=== PATIENT | female | born 1960 | race Caucasian/White ===

== ENCOUNTER → 2016-10-07 | Outpatient (CLI) | payer BC ==
[~2016-10-07] MED LIST: ASCO100025 PO; ASCO100083 PO; ASPI-586 PO; ASPI-892 PO; CALC-80 PO; CEFD300C3 PO; CETI10TA17 PO; CIPR-225 PO; CIPR500T78 PO; CYAN10007 PO; CYCL10TA9 PO; DULO30CA; DULO60CA58 PO; DULO60CA6 PO; ESTR1TAB37 PO; ESTRATEST; ESTRATEST PO; FISH1CAP15 PO; HCTZ12.5T PO; HYDR-87 PO; IBUP-30 PO; LEVO750T9 PO; LISI40TA PO; LSNP20T; METF500T4 PO; METR500T PO; MMT17NA NS; MTF500T PO; MULT-301 PO; MULT1CAP27 PO; NAPR-243 PO; NAPR500T3 PO; ONDA-43 PO; OXYC-197 PO; PRD20T PO; PROVIGIL; RT-ALBUINH IH; SENN-20 PO; SULF1TAB35 PO; TOPI50TA20; TRAM-42 PO; TRM50T PO; VITA-198 PO; VITA100035 PO; VITA1CAP PO; hydrochlorothiazide; premarin
--- NOTE | 2016-10-07 11:51 | Diagnostic Imaging Report ---
INDICATION: Pain in the right posterior chest with congestion x 2 days. COMPARISON STUDY: Chest dated 10/02/2015. FINDINGS: Frontal and lateral views of the chest demonstrate no change. The lungs are clear. The heart, mediastinum, and pulmonary vascularity are normal. Minimal degenerative changes are present in the spine. IMPRESSION: Negative chest. Dictated by: Dictated on workstation # [id number]
== END ==
LOC: RAD 09:16
PROVIDERS: ATTEND Nurse Practitioner
DX: R05 Cough (principal); Z72.0 Tobacco use
CPT/HCPCS: 71020

== ENCOUNTER 2016-10-12 01:58 | Emergency (ER) | payer BC ==
[~2016-10-12] VITALS: Ht 165.1 cm; Wt 83.9 kg
[~2016-10-12 01:58] MED LIST changes: -CEFD300C3 PO; -HYDR-87 PO; -IBUP-30 PO; -OXYC-197 PO; -PRD20T PO; -RT-ALBUINH IH
--- OUTSIDE RECORDS SUMMARY | 2016-10-12 02:07 | XMS REPORT | Continuity of Care Document ---
Author Author [facility] Organization [facility] Address Unknown Phone Unavailable Allergies Active Description Code Type Severity Reaction Onset Reported/Identified Relationship to Patient Clinical Status Yes morphine [id number] Drug Allergy Unknown ITCHING 07/10/2007 Medications Problems Date Dx Coded Attending Type Code Diagnosis Diagnosed By 01/19/2015 Ot V76.12 01/19/2015 Ot 250.00 01/19/2015 Ot 311 01/19/2015 Ot 327.23 01/19/2015 Ot 327.51 01/19/2015 Ot 401.9 01/19/2015 Ot 327.23 01/19/2015 Ot 327.51 01/19/2015 Ot 610.0 01/19/2015 Ot V76.12 01/26/2015 DAPHNIE FORDE, SONA Connolly Ot 574.20 01/26/2015 DAPHNIE FORDE, SONA Connolly Ot 793.89 01/26/2015 DAPHNIE FORDE, SONA Connolly Ot V76.12 01/26/2015 DAPHNIE FORDE, SONA Connolly Ot 574.20 01/26/2015 FRANCINE HARDWICK JOURNALIST Ot 611.72 01/26/2015 FRANCINE HARDWICK Ot 793.80 01/26/2015 Ot 611.72 01/26/2015 Ot V76.12 01/26/2015 Ot 250.00 01/26/2015 Ot 311 01/26/2015 Ot 327.23 01/26/2015 Ot 327.51 01/26/2015 Ot 401.9 01/26/2015 Ot 327.23 01/26/2015 Ot 327.51 01/26/2015 Ot 610.0 01/26/2015 Ot V76.12 02/19/2015 JOHANA ROSALES MD Ot 562.11 DIVERTICULITIS COLON (W/O MENT OF HEMORR 02/19/2015 JOHANA ROSALES MD Ot 787.01 NAUSEA WITH VOMITING 03/01/2015 VANBECELAERE, FRANCINE M JOURNALIST Ot 789.33 03/02/2015 VANBECELAERE, FRANCINE M JOURNALIST Ot 562.11 03/10/2015 VANBECELAERE, FRANCINE M JOURNALIST Ot 789.33 03/21/2015 DERREK FORDE, JAYNA Mota Ot 562.10 DIVERTICULOSIS COLON (W/O MENT OF HEMORR 03/21/2015 DERREK FORDE, JAYNA Mota Ot V76.51 SCREEN MAL NEOP-COLON 03/29/2015 ALECIA CELESTE DO S Ot 573.8 04/17/2015 ALECIA CELESTE DO S Ot 573.8 05/22/2015 DAPHNIE FORDE, SONA Connolly Ot 574.20 05/22/2015 DAPHNIE FORDE, SONA Connolly Ot 793.89 05/22/2015 DAPHNIE FORDE, SONA Connolly Ot V76.12 05/22/2015 DAPHNIE FORDE, SONA Connolly Ot 574.20 05/22/2015 VANBECELAERE, FRANCINE M JOURNALIST Ot 611.72 05/22/2015 VANBECELAERE, FRANCINE M JOURNALIST Ot 793.80 05/22/2015 Ot 611.72 05/22/2015 VANBECELAERE, FRANCINE M JOURNALIST Ot 562.11 05/22/2015 VANBECELAERE, FRANCINE M JOURNALIST Ot 789.33 05/22/2015 LUCA CELESTE DOLINE S Ot 573.8 05/22/2015 DERREK FORDE, JAYNA Mota Ot V72.84 06/12/2015 DAPHNIE FORDE, SONA Connolly Ot 610.0 06/12/2015 DAPHNIE FORDE, SONA Connolly Ot 793.80 06/21/2015 DAPHNIE FORDE, SONA Connolly Ot 610.0 06/21/2015 DAPHNIE FORDE, SONA Connolly Ot 793.80 10/12/2015 Ot V76.12 10/12/2015 Ot 250.00 10/12/2015 Ot 311 10/12/2015 Ot 327.23 10/12/2015 Ot 327.51 10/12/2015 Ot 401.9 10/12/2015 Ot 327.23 10/12/2015 Ot 327.51 10/12/2015 Ot 610.0 10/12/2015 Ot V76.12 10/12/2015 Ot 610.0 10/12/2015 Ot 611.72 10/12/2015 DAPHNIE FORDE, SONA Connolly Ot 574.20 10/12/2015 DAPHNIE FORDE, SONA Connolly Ot 793.89 10/12/2015 DAPHNIE FORDE, SONA Connolly Ot V76.12 10/12/2015 DAPHNIE FORDE, SONA Connolly Ot 574.20 10/12/2015 [facility] M JOURNALIST Ot 611.72 10/12/2015 [facility] JOURNALIST Ot 793.80 10/12/2015 Ot 611.72 10/12/2015 [facility] J[facility] Ot 562.11 10/12/2015 [facility] M JOURNALIST Ot 789.33 10/12/2015 SHABNAM CELESTE DOQUELINE S Ot 573.8 10/12/2015 DERREK FORDE, JAYNA Mota Ot V72.84 10/12/2015 DAPHNIE FORDE, SONA Connolly Ot 610.0 10/12/2015 DAPHNIE FORDE, SONA Connolly Ot 793.80 10/16/2015 BOOKER BARRETT, ALECIA S Ot R05 10/28/2015 BOOKER BARRETT, ALECIA S Ot E11.9 TYPE 2 DIABETES MELLITUS WITHOUT COMPLIC 10/28/2015 BOOKER BARRETT, ALECIA S Ot F17.210 NICOTINE DEPENDENCE, CIGARETTES, UNCOMPL 10/28/2015 BOOKER BARRETT ALECIA S Ot I10 ESSENTIAL (PRIMARY) HYPERTENSION 10/28/2015 WESLEYNDER DO, ALECIA S Ot K57.32 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 10/28/2015 WESLEYNDER DO, ALECIA S Ot K59.00 CONSTIPATION, UNSPECIFIED 10/30/2015 BOOKER BARRETT ALECIA S Ot R05 11/22/2015 BOOKER BARRETT ALECIA S Ot R05 12/10/2015 DAPHNIE FORDE, SONA Connolly Ot 574.20 CHOLELITHIASIS NOS 12/10/2015 DAPHNIE FORDE, SONA Connolly Ot 793.89 OTH (ABN) FINDINGS ON RADIOLOGICAL EXAMI 12/10/2015 SONA ELLER MD Ot V76.12 OTH SCREEN MAMMO-MALIGN NEOPLASM OF NATA 12/10/2015 SONA ELLER MD Ot 574.20 CHOLELITHIASIS NOS 12/10/2015 MULUTRANGSA Erickson JOURNALIST Ot 611.72 LUMP OR MASS IN BREAST 12/10/2015 MULU FRANCINE Dre JOURNALIST Ot 793.80 UNSPEC ABNORMAL MAMMOGRAM 12/10/2015 Ot 611.72 LUMP OR MASS IN BREAST 12/10/2015 FRANCINE HARDWICK JOURNALIST Ot 562.11 DIVERTICULITIS COLON (W/O MENT OF HEMORR 12/10/2015 FRANCINE HARDWICK JOURNALIST Ot 789.33 ABDOMINAL/PELVIC SWELLING,MASS/ LUMP,RT L 12/10/2015 ALECIA CELESTE DO Ot 573.8 LIVER DISORDERS NEC 12/10/2015 DERREK FORDE, JAYNA Mota Ot V72.84 EXAM PRE-OPERATIVE NOS 12/10/2015 SONA ELLER MD Ot 610.0 SOLITARY CYST OF BREAST 12/10/2015 SONA ELLER MD Ot 793.80 UNSPEC ABNORMAL MAMMOGRAM 12/10/2015 ALECIA CELESTE DO S Ot R05 COUGH 12/10/2015 RYAN VENEGAS MD Ot R09.89 OTH SYMPTOMS AND SIGNS INVOLVING THE CIR 12/10/2015 RYAN VENEGAS MD Ot Z53.21 PROC/TRTMT NOT CRD OUT D/T PT LV BEF SEE 12/12/2015 RYAN VENEGAS MD Ot R09.89 OTH SYMPTOMS AND SIGNS INVOLVING THE CIR 12/12/2015 RYAN VENEGAS MD Ot Z53.21 PROC/TRTMT NOT CRD OUT D/T PT LV BEF SEE 12/12/2015 RYAN VENEGAS MD Ot R09.89 OTH SYMPTOMS AND SIGNS INVOLVING THE CIR 12/12/2015 RYAN VENEGAS MD, Ot Z53.21 PROC/TRTMT NOT CRD OUT D/T PT LV BEF SEE 03/22/2016 TESSY RYDER APRN Ot F17.210 NICOTINE DEPENDENCE, CIGARETTES, UNCOMPL 03/22/2016 TESSY RYDER SEWING MACHINE ASSEMBLER Ot K57.32 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 03/22/2016 TESSY RYDER SEWING MACHINE ASSEMBLER Ot R10.32 LEFT LOWER QUADRANT PAIN 03/25/2016 TESSY RYDER SEWING MACHINE ASSEMBLER Ot K57.32 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 03/25/2016 TESSY RYDER APRN Ot R10.32 LEFT LOWER QUADRANT PAIN 03/25/2016 TESSY RYDER SEWING MACHINE ASSEMBLER Ot F17.210 NICOTINE DEPENDENCE, CIGARETTES, UNCOMPL 03/25/2016 TESSY RYDER SEWING MACHINE ASSEMBLER Ot K57.32 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 03/25/2016 TESSY RYDER SEWING MACHINE ASSEMBLER Ot R10.32 LEFT LOWER QUADRANT PAIN 04/04/2016 MALOU NORTH APRN Ot D72.829 ELEVATED WHITE BLOOD CELL COUNT, UNSPECI 04/04/2016 MALOU NORTH APRN Ot K57.92 DVTRCLI OF INTEST, PART UNSP, W/O PERF O 04/05/2016 MALOU NORTH SEWING MACHINE ASSEMBLER Ot E86.0 DEHYDRATION 04/05/2016 MALOU NORTH SEWING MACHINE ASSEMBLER Ot K57.92 DVTRCLI OF INTEST, PART UNSP, W/O PERF O 04/05/2016 MALOU NORTH SEWING MACHINE ASSEMBLER Ot R11.0 NAUSEA 04/19/2016 MALOU NORTH SEWING MACHINE ASSEMBLER Ot E86.0 DEHYDRATION 04/19/2016 MALOU NORTH APRN Ot K57.92 DVTRCLI OF INTEST, PART UNSP, W/O PERF O 04/19/2016 MALOU NORTH SEWING MACHINE ASSEMBLER Ot R11.0 NAUSEA 04/19/2016 MALOU NORTH SEWING MACHINE ASSEMBLER Ot D72.829 ELEVATED WHITE BLOOD CELL COUNT, UNSPECI 04/19/2016 MALOU NORTH SEWING MACHINE ASSEMBLER Ot K57.92 DVTRCLI OF INTEST, PART UNSP, W/O PERF O 04/19/2016 MALOU NORTH APRN Ot K57.92 DVTRCLI OF INTEST, PART UNSP, W/O PERF O 04/30/2016 DAPHNIE FORDE, SONA Connolly Ot 574.20 CHOLELITHIASIS NOS 04/30/2016 DAPHNIE FORDE, SONA Connolly Ot 793.89 OTH (ABN) FINDINGS ON RADIOLOGICAL EXAMI 04/30/2016 DAPHNIE FORDE, SONA Connolly Ot V76.12 OTH SCREEN MAMMO-MALIGN NEOPLASM OF NATA 04/30/2016 DAPHNIE FORDE, SONA Connolly Ot 574.20 CHOLELITHIASIS NOS 04/30/2016 FRANCINE HARDWICK M JOURNALIST Ot 611.72 LUMP OR MASS IN BREAST 04/30/2016 MULU FRANCINE M JOURNALIST Ot 793.80 UNSPEC ABNORMAL MAMMOGRAM 04/30/2016 Ot 611.72 LUMP OR MASS IN BREAST 04/30/2016 TRANG HARDWICKSA M JOURNALIST Ot 562.11 DIVERTICULITIS COLON (W/O MENT OF HEMORR 04/30/2016 FRANCINE HARDWICK M JOURNALIST Ot 789.33 ABDOMINAL/PELVIC SWELLING,MASS/ LUMP,RT L 04/30/2016 ALECIA CELESTE DO Ot 573.8 LIVER DISORDERS NEC 04/30/2016 DERREK FORDE, JAYNA Mota Ot V72.84 EXAM PRE-OPERATIVE NOS 04/30/2016 DAPHNIE FORDE, SONA Connolly Ot 610.0 SOLITARY CYST OF BREAST 04/30/2016 DAPHNIE FORDE, SONA Connolly Ot 793.80 UNSPEC ABNORMAL MAMMOGRAM 04/30/2016 ALECIA CELESTE DO S Ot R05 COUGH 04/30/2016 MALOU NORTH SEWING MACHINE ASSEMBLER Ot E86.0 DEHYDRATION 04/30/2016 MALOU NORTH SEWING MACHINE ASSEMBLER Ot K57.92 DVTRCLI OF INTEST, PART UNSP, W/O PERF O 04/30/2016 MALOU NORTH SEWING MACHINE ASSEMBLER Ot R11.0 NAUSEA 04/30/2016 MALOU NORTH SEWING MACHINE ASSEMBLER Ot D72.829 ELEVATED WHITE BLOOD CELL COUNT, UNSPECI 04/30/2016 MALOU NORTH SEWING MACHINE ASSEMBLER Ot K57.92 DVTRCLI OF INTEST, PART UNSP, W/O PERF O 04/30/2016 MALOU NORTH SEWING MACHINE ASSEMBLER Ot K57.92 DVTRCLI OF INTEST, PART UNSP, W/O PERF O 07/01/2016 Ot 610.0 SOLITARY CYST OF BREAST 07/01/2016 Ot V76.12 OTH SCREEN MAMMO-MALIGN NEOPLASM OF NATA 07/01/2016 Ot 610.0 SOLITARY CYST OF BREAST 07/01/2016 Ot 611.72 LUMP OR MASS IN BREAST 07/01/2016 SONA ELLER MD Ot 574.20 CHOLELITHIASIS NOS 07/01/2016 SONA ELLER MD Ot 793.89 OTH (ABN) FINDINGS ON RADIOLOGICAL EXAMI 07/01/2016 SONA ELLER MD, Ot V76.12 OTH SCREEN MAMMO-MALIGN NEOPLASM OF NATA 07/01/2016 SONA ELLER MD Ot 574.20 CHOLELITHIASIS NOS 07/01/2016 FRANCINE HARDWICK M JOURNALIST Ot 611.72 LUMP OR MASS IN BREAST 07/01/2016 FRANCINE HARDWICK M JOURNALIST Ot 793.80 UNSPEC ABNORMAL MAMMOGRAM 07/01/2016 Ot 611.72 LUMP OR MASS IN BREAST 07/01/2016 FRANCINE HARDWICK M JOURNALIST Ot 562.11 DIVERTICULITIS COLON (W/O MENT OF HEMORR 07/01/2016 FRANCINE HARDWICK M JOURNALIST Ot 789.33 ABDOMINAL/PELVIC SWELLING,MASS/ LUMP,RT L 07/01/2016 ALECIA CELESTE DO S Ot 573.8 LIVER DISORDERS NEC 07/01/2016 DERREK FORDE, JAYNA Mota Ot V72.84 EXAM PRE-OPERATIVE NOS 07/01/2016 SONA ELLER MD Ot 610.0 SOLITARY CYST OF BREAST 07/01/2016 SONA ELLER MD Ot 793.80 UNSPEC ABNORMAL MAMMOGRAM 07/01/2016 ALECIA CELESTE DO S Ot R05 COUGH 07/01/2016 MALOU NORTH SEWING MACHINE ASSEMBLER Ot E86.0 DEHYDRATION 07/01/2016 MALOU NORTH APRN Ot K57.92 DVTRCLI OF INTEST, PART UNSP, W/O PERF O 07/01/2016 MALOU NORTH APRN Ot R11.0 NAUSEA 07/01/2016 MALOU NORTH SEWING MACHINE ASSEMBLER Ot D72.829 ELEVATED WHITE BLOOD CELL COUNT, UNSPECI 07/01/2016 MALOU NORTH Manoj SEWING MACHINE ASSEMBLER Ot K57.92 DVTRCLI OF INTEST, PART UNSP, W/O PERF O 07/01/2016 MALOU NORTH SEWING MACHINE ASSEMBLER Ot K57.92 DVTRCLI OF INTEST, PART UNSP, W/O PERF O 07/02/2016 DAPHNIE FORDE, SONA Connolly Ot Z12.31 ENCNTR SCREEN MAMMOGRAM FOR MALIGNANT NE 07/12/2016 SONA ELLER MD, Ot Z12.31 ENCNTR SCREEN MAMMOGRAM FOR MALIGNANT NE 07/25/2016 EMILY WOODARD DO Ot N39.0 URINARY TRACT INFECTION, SITE NOT SPECIF 08/07/2016 EMILY WOODARD DO Ot N39.0 URINARY TRACT INFECTION, SITE NOT SPECIF 08/10/2016 BRENDON DO, AMY K Ot E11.49 TYPE 2 DIABETES [facility] 08/10/2016 BRENDON DO, AMY K Ot I10 ESSENTIAL (PRIMARY) HYPERTENSION 08/10/2016 BRENDON DO, AMY K Ot T81.4XXA INFECTION FOLLOWING A PROCEDURE, INITIAL 08/10/2016 BRENDON DO, AMY K Ot Z79.82 [facility] (CURRENT) USE OF ASPIRIN 08/10/2016 BRENDON DO, AMY K Ot Z79.84 MACHINE CUTTER (CURRENT) USE OF ORAL HYPOGLYC 08/10/2016 BRENDON DO, AMY K Ot Z79.899 OTHER MACHINE CUTTER (CURRENT) DRUG THERAPY 08/10/2016 BRENDON DO, AMY K Ot Z90.49 ACQUIRED ABSENCE OF OTHER SPECIFIED PART 08/12/2016 BRENDON DO, AMY K Ot E11.49 TYPE 2 DIABETES [facility] 08/12/2016 BRENDON DO, AMY K Ot I10 ESSENTIAL (PRIMARY) HYPERTENSION 08/12/2016 BRENDON DO, AMY K Ot T81.4XXA INFECTION FOLLOWING A PROCEDURE, INITIAL 08/12/2016 BRENDON DO, AMY K Ot Z79.82 MACHINE CUTTER (CURRENT) USE OF ASPIRIN 08/12/2016 BRENDON DO, AMY K Ot Z79.84 MACHINE CUTTER (CURRENT) USE OF ORAL HYPOGLYC 08/12/2016 BRENDON DO, AMY K Ot Z79.899 OTHER [facility] (CURRENT) DRUG THERAPY 08/12/2016 BRENDON BARRETT AMY Hart Ot Z90.49 ACQUIRED ABSENCE OF OTHER SPECIFIED PART 10/08/2016 MALOU NORTH APRN Ot R05 COUGH 10/08/2016 MALOU NORTH APRN Ot Z72.0 TOBACCO USE Procedures Results Test Result Range Complete blood count (CBC) with automated white blood cell (WBC) differential - 03/22/16 13:39 Blood leukocytes automated count (number/volume) 8.8 10*3/ uL 4.3-11.0 Blood erythrocytes automated count (number/volume) 5.42 10*6 /uL 4.35-5.85 Venous blood hemoglobin measurement (mass/volume) 16.7 g/dL 11.5-16.0 Blood hematocrit (volume fraction) 48 % 35-52 Automated erythrocyte mean corpuscular volume 89 [foz_us] 80-99 Automated erythrocyte mean corpuscular hemoglobin (mass per erythrocyte) 31 pg 25-34 Automated erythrocyte mean corpuscular hemoglobin concentration measurement ( mass/volume) 35 g/dL 32-36 Automated erythrocyte distribution width ratio 14.1 % 10.0-14.5 Automated blood platelet count (count/volume) 333 10*3/uL 130-400 Automated blood platelet mean volume measurement 10.0 [foz_ us] 7.4-10.4 Automated blood neutrophils/100 leukocytes 63 % 42-75 Automated blood lymphocytes/100 leukocytes 27 % 12-44 Blood monocytes/100 leukocytes 9 % 0-12 Automated blood eosinophils/100 leukocytes 1 % 0-10 Automated blood basophils/100 leukocytes 0 % 0-10 Blood neutrophils automated count (number/volume) 5.5 10*3 1.8-7.8 Blood lymphocytes automated count (number/volume) 2.4 10*3 1.0-4.0 Blood monocytes automated count (number/volume) 0.8 10*3 0.0-1.0 Automated eosinophil count 0.1 10*3/uL 0.0-0.3 Automated blood basophil count (count/volume) 0.0 10*3/uL 0.0-0.1 Comprehensive metabolic panel - 03/22/16 13:39 Serum or plasma sodium measurement (moles/volume) 139 mmol/ L 135-145 Serum or plasma potassium measurement (moles/volume) 3.9 mmol/L 3.6-5.0 Serum or plasma chloride measurement (moles/volume) 105 mmol /L 98-107 Carbon dioxide 27 mmol/L 21-32 Serum or plasma anion gap determination (moles/volume) 7 mmol/L 5-14 Serum or plasma urea nitrogen measurement (mass/volume) 10 mg/dL 7-18 Serum or plasma creatinine measurement (mass/volume) 0.76 mg /dL 0.60-1.30 Serum or plasma urea nitrogen/creatinine mass ratio 13 NRG Serum or plasma creatinine measurement with calculation of estimated glomerular filtration rate > NRG Serum or plasma glucose measurement (mass/volume) 93 mg/dL 70-105 Serum or plasma calcium measurement (mass/volume) 10.4 mg/ dL 8.5-10.1 Serum or plasma total bilirubin measurement (mass/volume) 0.5 mg/dL 0.1-1.0 Serum or plasma alkaline phosphatase measurement (enzymatic activity/volume) 57 U/L 40-136 Serum or plasma aspartate aminotransferase measurement (enzymatic activity/ volume) 22 U/L 5-34 Serum or plasma alanine aminotransferase measurement (enzymatic activity/volume ) 39 U/L 0-55 Serum or plasma protein measurement (mass/volume) 7.6 g/dL 6.4-8.2 Serum or plasma albumin measurement (mass/volume) 5.0 g/dL 3.2-4.5 Lipase - 03/22/16 13:39 Lipase 82 U/L 8-78 Complete urinalysis with reflex to culture - 03/22/16 13:40 Urine color determination YELLOW NRG Urine clarity determination CLEAR NRG Urine pH measurement by test strip 6 5- 9 Specific gravity of urine by test strip 1.020 1.016-1.022 Urine protein assay by test strip, semi-quantitative 1+ NEGATIVE Urine glucose detection by automated test strip NEGATIVE NEGATIVE Erythrocytes detection in urine sediment by light microscopy NEGATIVE NEGATIVE Urine ketones detection by automated test strip NEGATIVE NEGATIVE Urine nitrite detection by test strip NEGATIVE NEGATIVE Urine total bilirubin detection by test strip NEGATIVE NEGATIVE Urine urobilinogen measurement by automated test strip (mass/volume) NORMAL NORMAL Urine leukocyte esterase detection by dipstick 1+ NEGATIVE Automated urine sediment erythrocyte count by microscopy (number/high power field) RARE NRG Automated urine sediment leukocyte count by microscopy (number/high power field ) RARE NRG Bacteria detection in urine sediment by light microscopy LARGE NRG Squamous epithelial cells detection in urine sediment by light microscopy TNTC NRG Crystals detection in urine sediment by light microscopy NONE NRG Casts detection in urine sediment by light microscopy NONE NRG Mucus detection in urine sediment by light microscopy NEGATIVE NRG Complete urinalysis with reflex to culture NO NRG Automated blood complete blood count (hemogram) panel - 04/02/16 11:36 Blood leukocytes automated count (number/volume) 13.6 10*3/ uL 4.3-11.0 Blood erythrocytes automated count (number/volume) 5.25 10*6 /uL 4.35-5.85 Venous blood hemoglobin measurement (mass/volume) 16.0 g/dL 11.5-16.0 Blood hematocrit (volume fraction) 47 % 35-52 Automated erythrocyte mean corpuscular volume 89 [foz_us] 80-99 Automated erythrocyte mean corpuscular hemoglobin (mass per erythrocyte) 31 pg 25-34 Automated erythrocyte mean corpuscular hemoglobin concentration measurement ( mass/volume) 34 g/dL 32-36 Automated erythrocyte distribution width ratio 14.3 % 10.0-14.5 Automated blood platelet count (count/volume) 307 10*3/uL 130-400 Automated blood platelet mean volume measurement 10.2 [foz_ us] 7.4-10.4 Comprehensive metabolic panel - 04/02/16 11:36 Serum or plasma sodium measurement (moles/volume) 138 mmol/ L 135-145 Serum or plasma potassium measurement (moles/volume) 4.0 mmol/L 3.6-5.0 Serum or plasma chloride measurement (moles/volume) 104 mmol /L 98-107 Carbon dioxide 25 mmol/L 21-32 Serum or plasma anion gap determination (moles/volume) 9 mmol/L 5-14 Serum or plasma urea nitrogen measurement (mass/volume) 8 mg /dL 7-18 Serum or plasma creatinine measurement (mass/volume) 0.72 mg /dL 0.60-1.30 Serum or plasma urea nitrogen/creatinine mass ratio 11 NRG Serum or plasma creatinine measurement with calculation of estimated glomerular filtration rate > NRG Serum or plasma glucose measurement (mass/volume) 94 mg/dL 70-105 Serum or plasma calcium measurement (mass/volume) 10.0 mg/ dL 8.5-10.1 Serum or plasma total bilirubin measurement (mass/volume) 0.8 mg/dL 0.1-1.0 Serum or plasma alkaline phosphatase measurement (enzymatic activity/volume) 46 U/L 40-136 Serum or plasma aspartate aminotransferase measurement (enzymatic activity/ volume) 23 U/L 5-34 Serum or plasma alanine aminotransferase measurement (enzymatic activity/volume ) 46 U/L 0-55 Serum or plasma protein measurement (mass/volume) 7.2 g/dL 6.4-8.2 Serum or plasma albumin measurement (mass/volume) 4.7 g/dL 3.2-4.5 Serum or plasma amylase measurement (enzymatic activity/volume) - 04/02/16 11: 36 Serum or plasma amylase measurement (enzymatic activity/volume) 22 U/L 25-125 Lipase - 04/02/16 11:36 Lipase 35 U/L 8-78 Complete blood count (CBC) with automated white blood cell (WBC) differential - 04/03/16 08:39 Blood leukocytes automated count (number/volume) 9.3 10*3/ uL 4.3-11.0 Blood erythrocytes automated count (number/volume) 5.00 10*6 /uL 4.35-5.85 Venous blood hemoglobin measurement (mass/volume) 15.3 g/dL 11.5-16.0 Blood hematocrit (volume fraction) 45 % 35-52 Automated erythrocyte mean corpuscular volume 90 [foz_us] 80-99 Automated erythrocyte mean corpuscular hemoglobin (mass per erythrocyte) 31 pg 25-34 Automated erythrocyte mean corpuscular hemoglobin concentration measurement ( mass/volume) 34 g/dL 32-36 Automated erythrocyte distribution width ratio 14.1 % 10.0-14.5 Automated blood platelet count (count/volume) 296 10*3/uL 130-400 Automated blood platelet mean volume measurement 10.1 [foz_ us] 7.4-10.4 Automated blood neutrophils/100 leukocytes 70 % 42-75 Automated blood lymphocytes/100 leukocytes 20 % 12-44 Blood monocytes/100 leukocytes 8 % 0-12 Automated blood eosinophils/100 leukocytes 1 % 0-10 Automated blood basophils/100 leukocytes 0 % 0-10 Blood neutrophils automated count (number/volume) 6.5 10*3 1.8-7.8 Blood lymphocytes automated count (number/volume) 1.9 10*3 1.0-4.0 Blood monocytes automated count (number/volume) 0.8 10*3 0.0-1.0 Automated eosinophil count 0.1 10*3/uL 0.0-0.3 Automated blood basophil count (count/volume) 0.0 10*3/uL 0.0-0.1 Complete blood count (CBC) with automated white blood cell (WBC) differential - 04/05/16 08:59 Blood leukocytes automated count (number/volume) 6.4 10*3/ uL 4.3-11.0 Blood erythrocytes automated count (number/volume) 5.09 10*6 /uL 4.35-5.85 Venous blood hemoglobin measurement (mass/volume) 15.5 g/dL 11.5-16.0 Blood hematocrit (volume fraction) 46 % 35-52 Automated erythrocyte mean corpuscular volume 89 [foz_us] 80-99 Automated erythrocyte mean corpuscular hemoglobin (mass per erythrocyte) 31 pg 25-34 Automated erythrocyte mean corpuscular hemoglobin concentration measurement ( mass/volume) 34 g/dL 32-36 Automated erythrocyte distribution width ratio 14.0 % 10.0-14.5 Automated blood platelet count (count/volume) 328 10*3/uL 130-400 Automated blood platelet mean volume measurement 10.1 [foz_ us] 7.4-10.4 Automated blood neutrophils/100 leukocytes 59 % 42-75 Automated blood lymphocytes/100 leukocytes 31 % 12-44 Blood monocytes/100 leukocytes 7 % 0-12 Automated blood eosinophils/100 leukocytes 2 % 0-10 Automated blood basophils/100 leukocytes 1 % 0-10 Blood neutrophils automated count (number/volume) 3.8 10*3 1.8-7.8 Blood lymphocytes automated count (number/volume) 2.0 10*3 1.0-4.0 Blood monocytes automated count (number/volume) 0.5 10*3 0.0-1.0 Automated eosinophil count 0.1 10*3/uL 0.0-0.3 Automated blood basophil count (count/volume) 0.0 10*3/uL 0.0-0.1 Complete urinalysis with reflex to culture - 07/25/16 10:20 Urine color determination YELLOW NRG Urine clarity determination CLEAR NRG Urine pH measurement by test strip 6 5- 9 Specific gravity of urine by test strip 1.015 1.016-1.022 Urine protein assay by test strip, semi-quantitative NEGATIVE NEGATIVE Urine glucose detection by automated test strip NEGATIVE NEGATIVE Erythrocytes detection in urine sediment by light microscopy NEGATIVE NEGATIVE Urine ketones detection by automated test strip NEGATIVE NEGATIVE Urine nitrite detection by test strip NEGATIVE NEGATIVE Urine total bilirubin detection by test strip NEGATIVE NEGATIVE Urine urobilinogen measurement by automated test strip (mass/volume) NORMAL NORMAL Urine leukocyte esterase detection by dipstick NEGATIVE NEGATIVE Automated urine sediment erythrocyte count by microscopy (number/high power field) NONE NRG Automated urine sediment leukocyte count by microscopy (number/high power field ) [HPF] NRG Bacteria detection in urine sediment by light microscopy LARGE NRG Squamous epithelial cells detection in urine sediment by light microscopy 10-25 NRG Crystals detection in urine sediment by light microscopy NONE NRG Casts detection in urine sediment by light microscopy NONE NRG Mucus detection in urine sediment by light microscopy NEGATIVE NRG Complete urinalysis with reflex to culture NO NRG Gram stain microscopy - 08/10/16 18:00 GRAM STAIN RESULT RARE GRAM POSITIVE COCCI NRG Bacteria identification in wound by culture - 08/10/16 18:00 Bacteria identification in wound by culture [id number] NRG QUANTITY OF GROWTH Scant Growth NRG Complete urinalysis with reflex to culture - 08/10/16 18:25 Urine color determination YELLOW NRG Urine clarity determination CLEAR NRG Urine pH measurement by test strip 7 5- 9 Specific gravity of urine by test strip 1.005 1.016-1.022 Urine protein assay by test strip, semi-quantitative NEGATIVE NEGATIVE Urine glucose detection by automated test strip NEGATIVE NEGATIVE Erythrocytes detection in urine sediment by light microscopy NEGATIVE NEGATIVE Urine ketones detection by automated test strip NEGATIVE NEGATIVE Urine nitrite detection by test strip NEGATIVE NEGATIVE Urine total bilirubin detection by test strip NEGATIVE NEGATIVE Urine urobilinogen measurement by automated test strip (mass/volume) NORMAL NORMAL Urine leukocyte esterase detection by dipstick NEGATIVE NEGATIVE Automated urine sediment erythrocyte count by microscopy (number/high power field) NONE NRG Automated urine sediment leukocyte count by microscopy (number/high power field ) NONE NRG Bacteria detection in urine sediment by light microscopy FEW NRG Squamous epithelial cells detection in urine sediment by light microscopy 5-10 NRG Crystals detection in urine sediment by light microscopy NONE NRG Casts detection in urine sediment by light microscopy NONE NRG Mucus detection in urine sediment by light microscopy NEGATIVE NRG Complete urinalysis with reflex to culture NO NRG Gram stain microscopy - 08/10/16 19:25 GRAM STAIN RESULT MODERATE # WBC'[id number], NO BACTERIA OBSERVED NRG Bacteria identification in wound by culture - 08/10/16 19:25 Bacteria identification in wound by culture [id number] NRG FREE TEXT EXTERNAL SENSITIVITY REPORTED AT 1047, 08-15-16 NRG QUANTITY OF GROWTH Moderate Growth NRG Bacterial susceptibility panel - 08/10/16 19:25 Gentamicin susceptibility test by minimum inhibitory concentration S NRG Erythromycin susceptibility test by minimum inhibitory concentration 1 NRG Vancomycin susceptibility test by minimum inhibitory concentration 1 NRG Ampicillin susceptibility test by minimum inhibitory concentration <= NRG Linezolid susceptibility test by minimum inhibitory concentration 2 NRG Encounters ACCT No. Visit Date/Time Discharge Status Pt. Type Provider Facility Loc./Unit Complaint [id number] 08/10/2016 16:28:00 2015 19:45:00 DIS Emergency AMY OLIVAS DO [facility] ER INCISION REDNESS/PAIN [id number] 03/22/2016 13:10:00 2015 15:26:00 DIS Emergency TESSY RYDER APRN [facility] ER STOMACH PAIN/NAUSEA/HEADACHE [id number] 12/10/2015 15:36:00 2015 16:02:00 DIS Emergency RYAN VENEGAS MD [facility] ER CHEST CONGESTION/COUGH [id number] 10/24/2015 11:23:00 2015 10:35:00 DIS Inpatient ALECIA CELESTE DO [facility] 4TH DIVERTICULITIS [id number] 05/22/2015 14:05:00 2014 23:59:59 CLS Outpatient SONA ELLER MD [facility] RAD 6 MONTH FOLLOW UP [id number] 03/21/2015 08:01:00 2014 10:55:00 DIS Outpatient JAYNA ANGLIN MD [facility] SDC SCREENING [id number] 03/16/2015 06:41:00 2014 23:59:59 CLS Outpatient JAYNA ANGLIN MD [facility] PREOP SCREENING [id number] 03/13/2015 08:41:00 2014 23:59:59 CLS Outpatient ALECIA CELESTE DO [facility] RAD LIVER LESION [id number] 02/20/2015 09:43:00 2014 23:59:59 CLS Outpatient FRANCINE HARDWICKP [facility] RAD PELVIC MASS, RLQ PAIN [id number] 02/19/2015 09:20:00 2014 11:42:00 DIS Emergency JOHANA ROSALES MD [facility] ER VOMITING/DIARRHEA [id number] 02/17/2015 11:13:00 2014 23:59:59 CLS Outpatient FRANCINE HARDWICK [facility] RAD ABDOMINAL PAIN [id number] 04/13/2014 13:33:00 2013 23:59:59 CLS Outpatient FRANCINE HARDWICK [facility] RAD PALPABLE RT BREAST MASS [id number] 10/14/2013 11:58:00 2013 23:59:59 CLS Outpatient SONA ELLER MD [facility] RAD BILLIARY COLIC [id number] 10/06/2013 07:57:00 2013 23:59:59 CLS Outpatient SONA ELLER MD [facility] RAD SCREENING,BILIARY COLIC [id number] 10/12/2016 02:01:00 ACT Emergency BRENDON AMY BARRETT Hailey [facility] ER HARD TO BREATH [id number] 10/07/2016 09:16:00 ACT Outpatient MALOU NORTH APRN [facility] RAD COUGH,CONGESTION,TOBACOO ABUSE [id number] 07/25/2016 10:13:00 ACT Outpatient EMILY WOODARD DO [facility] LAB UTI [id number] 07/01/2016 14:39:00 ACT Outpatient SONA ELLER MD [facility] RAD SCREENING [id number] 04/05/2016 08:53:00 ACT Outpatient MALOU NORTH APRN [facility] LAB ACUTE DIVERTICULITIS [id number] 04/03/2016 08:37:00 ACT Outpatient MALOU NORTH APRN [facility] LAB CBCWD [id number] 04/02/2016 11:17:00 ACT Outpatient MALOU NORTH Manoj [employer]ACH[employer]SEM[employer]ER [facility] SDC N/V DEHYDRATION [id number] 10/12/2015 14:41:00 ACT Outpatient ALECIA CELESTE DO [facility] RAD COUGH [id number] 01/19/2015 01:29:00 Document Registration [id number] 10/28/2014 08:13:00 Document Registration [id number] 04/15/2012 08:09:00 Document Registration [id number] 07/19/2011 09:46:00 Document Registration [id number] 01/15/2011 12:25:00 Document Registration [id number] 09/14/2010 20:45:00 Document Registration [id number] 08/08/2010 20:09:00 Document Registration [id number] 07/16/2010 08:07:00 Document Registration
--- NOTE | 2016-10-12 02:20 | ED Respiratory ---
General Chief Complaint: Respiratory Problems Stated Complaint: HARD TO BREATH Source: patient History of Present Illness Time seen by provider: 02:03 Initial Comments C/O COUGH AND CONGESTION AND FEVER SINCE Friday10/05/16 TEMP UP TO 101 HAS HAD SHORTNESS OF BREATH AND RIGHT LOWER CHEST PAIN ALL WEEK. WAS BETTER ON Friday10/09/16 AND WENT TO WORK YESTERDAY. PAIN STARTED AGAIN LAST NIGHT AND HAS BEEN SEVERE SINCE THEN WAS SEEN AT URGENT CARE ON Friday10/07/16 AND AGAIN YESTERDAY 10/11/16. CXR WAS DONE AT THAT TIME --NORMAL, PER PT---AND WAS DX WITH PLEURISY AND GIVEN RX FOR ZITHROMAX AND PREDNISONE ON FRIDAY, AND PREDNISONE AGAIN TODAY ALONG WITH TYLENOL # 3 IS HAVING "INTENSE PAIN" TO RIGHT LOWER / LATERAL CHEST AREA--NOT RELIEVED WITH TYLENOL # 3 OR TRAMADOL ( RX FROM SURGERY DONE IN JULY) PAIN IS WORSE WITH BREATHING OR CERTAIN POSITIONS, IS BETTER IF SHE IS SITTING OR STANDING UPRIGHT AND NOT LEANING AGAINST ANYTHING PCP: DR. CELESTE Allergies and Home Medications Allergies Coded Allergies: morphine (Verified Allergy, Unknown, ITCHING, 07/10/07) Home Medications Unknown Dose PO DAILY (Reported) Albuterol Sulfate 1 Puff Puff #1 2 PUFF IH Q4H Prescribed by: AMY OLIVAS on 10/12/16431 Ascorbic Acid 1,000 Mg Tablet.er 1,000 MG PO DAILY (Reported) Aspirin 81 Mg Tablet.dr 81 MG PO DAILY (Reported) Cefdinir 300 Mg Capsule #20 300 MG PO BID Prescribed by: AMY OLIVAS on 10/12/16431 Duloxetine HCl 60 Mg Capsule.dr 60 MG PO DAILY (Reported) Hydrocodone/Ibuprofen 1 Each Tablet #20 1-2 EACH PO Q4H Prescribed by: AMY OLIVAS on 10/12/16 043 Lisinopril 40 Mg Tablet 40 MG PO DAILY (Reported) Metformin HCl 500 Mg Tablet 500 MG PO DAILY (Reported) Multivitamin 1 Each Tablet 1 EACH PO DAILY (Reported) Vitamin B Complex 1 Each Capsule 1 EACH PO DAILY (Reported) Vitamin E Acetate 1,000 Unit Capsule 1,000 UNIT PO DAILY (Reported) Constitutional: see HPI fever EENTM: nose congestion Respiratory: see HPI cough short of breath Cardiovascular: see HPI Gastrointestinal: no symptoms reported Genitourinary: no symptoms reported Musculoskeletal: see HPI Skin: no symptoms reported Psychiatric/Neurological: No Symptoms Reported Hematologic/Lymphatic: No Symptoms Reported Immunological/Allergic: no symptoms reported Past Eofghxm-Envdov-Vajgcf Hx Patient Social History Alcohol Use: Denies Use Recreational Drug Use: No Smoking Status: Current Everyday Smoker (1 PPD) Type Used: Cigarettes Recent Foreign Travel: No Contact w/Someone Who Travel: No Recent Hopitalizations: Yes (07/03/16--COLON RESECTION FOR DIVERTICULITIS--DR. WOODARD/[facility]) Immunizations Up To Date Tetanus Booster (TDap): Less than 5yrs Seasonal Allergies Seasonal Allergies: Yes Surgeries HX Surgeries: Yes (COLON RESECTION 07/03/16 FOR DIVERTICULITIS- @ [facility] ; HYST/BSO FOR BENIGN DISEASE; FOOT SURGERY) Surgeries: Abdominal, Appendectomy, Bowel Surgery, Section, Hysterectomy, Oophorectomy, Orthopedic Respiratory Hx Respiratory Disorders: Yes Respiratory Disorders: Sleep Apnea Cardiovascular Hx Cardiac Disorders: Yes Cardiac Disorders: Hypertension Neurological Hx Neurological Disorders: No Reproductive System Hx Reproductive Disorders: No Sexually Transmitted Disease: No HIV/AIDS: 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, 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 Genitourinary Hx Genitourinary Disorders: No Gastrointestinal Hx Gastrointestinal Disorders: Yes Gastrointestinal Disorders: Diverticulosis Musculoskeletal Hx Musculoskeletal Disorders: No Endocrine Hx Endocrine Disorders: Yes (PRE-DIABETIC) Endocrine Disorders: Diabetes, Non-Insulin dep HEENT HX ENT Disorders: No Loss of Vision: Denies Hearing Impairment: Denies Cancer Hx Cancer: No Psychosocial Hx Psychiatric Problems: Yes Behavioral Health Disorders: Anxiety, Depression Integumentary HX Skin/Integumentary Disorder: No Blood Transfusions Hx Blood Disorders: No Physical Exam Vital Signs Vital Sign - Last 12Hours 10/12/16 02:13 Temp 97.6 Pulse 93 Resp 18 B/P 156/75 Pulse Ox 94 O2 Delivery Room Air Capillary Refill : General Appearance: WD/WN no apparent distress other (DOES NOT APPEAR ILL. 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5-10.1 MG/DL Carbon Dioxide Level 21 21-32 MMOL/L Chloride Level 107 98-107 MMOL/L Creatinine 0.67 0.60-1.30 MG/DL Eosinophils # (Auto) 0.0 0.0-0.3 10^3/uL Eosinophils % (Manual) 0 % Eosinophils (%) (Auto) 0 0-10 % Estimat Glomerular Filtration Rate > 60 Glucose Level 124 H 70-105 MG/DL Hematocrit 42 35-52 % Hemoglobin 14.4 11.5-16.0 G/DL Hypochromasia SLIGHT Lactic Acid Level 1.2 0.5-2.0 MMOL/L Lymphocytes # (Auto) 2.2 1.0-4.0 X 10^3 Lymphocytes % (Manual) 15 % Lymphocytes (%) (Auto) 13 12-44 % Mean Corpuscular Hemoglobin 29 25-34 PG Mean Corpuscular Hemoglobin Concent 34 32-36 G/DL Mean Corpuscular Volume 85 80-99 FL Mean Platelet Volume 10.0 7.4-10.4 FL Monocytes # (Auto) 1.8 H 0.0-1.0 X 10^3 Monocytes % (Manual) 11 % Monocytes (%) (Auto) 10 0-12 % Neutrophils # (Auto) 13.3 H 1.8-7.8 X 10^3 Neutrophils % (Manual) 72 % Neutrophils (%) (Auto) 77 H 42-75 % Platelet Count 375 130-400 10^3/uL Potassium Level 4.1 3.6-5.0 MMOL/L Reactive Lymphocytes 2 % Red Blood Count 4.97 4.35-5.85 10^6/uL Red Cell Distribution Width 16.4 H 10.0-14.5 % Sodium Level 141 135-145 MMOL/L Total Bilirubin 0.2 0.1-1.0 MG/DL Total Protein 7.1 6.4-8.2 G/DL Toxic Granulation 1+ White Blood Count 17.4 H 4.3-11.0 10^3/uL Micro Results Microbiology 10/12/16 Influenza Types A,B Antigen (JENNIFER) - Final, Complete My Orders Orders-AMY OLIVAS DO Saline Lock/Iv-Start (10/12/16 02:12) Ct Angio Chest W (10/12/16 02:12) Cbc With Automated Diff (10/12/16 02:12) Comprehensive Metabolic Panel (10/12/16 02:12) Lactic Acid Analyzer (10/12/16 02:12) Blood Culture (10/12/16 02:12) Influenza A And B Antigens (10/12/16 02:12) Manual Differential (10/12/16 02:20) Iohexol Injection (Omnipaque 350 Mg/Ml 1 (10/12/16 03:30) Ns (Ivpb) (Sodium Chloride 0.9% Ivpb Bag (10/12/16 03:30) Ceftriaxone Injection (Rocephin Injectio (10/12/16 04:30) Ketorolac Injection (Toradol Injection) (10/12/16 04:30) Hydrocodone/Apap 7.5/325 Tab (Lortab 7. (10/12/16 04:30) Medications Given in ED Current Medications Medications Dose Ordered Sig/Paul Route Start Time Stop Time Status Last Admin Dose Admin Acetaminophen/ Hydrocodone Bitart 1 ea ONCE ONCE PO 10/12/16 04:30 10/12/16 04:31 DC 10/12/16 04:37 1 EA Ceftriaxone Sodium/Sodium Chloride 50 ml @ 100 mls/hr ONCE ONCE IV 10/12/16 04:30 10/12/16 04:46 DC 10/12/16 04:37 100 MLS/HR Iohexol 150 ml ONCE ONCE IV 10/12/16 03:30 10/12/16 03:32 DC 10/12/16 03:24 125 ML Sodium Chloride 100 ml 100 ml ONCE ONCE IV 10/12/16 03:30 10/12/16 03:32 DC 10/12/16 03:24 80 ML Vital Signs/I&O Vital Sign - Last 12Hours 10/12/16 10/12/16 10/12/16 10/12/16 02:13 04:37 04:37 04:40 Temp 97.6 97.6 97.6 98.4 Pulse 93 73 Resp 18 16 B/P 156/75 Pulse Ox 94 94 O2 Delivery Room Air Progress Note : Progress Note NO COUGH NOTED DURING ER STAY, AND NO C/O DYSPNEA DURING ER STAY Diagnostic Imaging Comments CT CHEST ANGIOGRAM--NO PE OR ACUTE PROCESS, PER [facility] VIA FAX @ [id number] Reviewed: Reviewed by Me Departure Impression Impression: Primary Impression: Bronchitis Additional Impression: PLEURITIC RIGHT CHEST PAIN Disposition: HOME, SELF-CARE Condition: Stable (ERASED) Departure-Patient Inst. Referrals: ALECIA CELESTE DO (PCP/Family) Primary Care Physician Patient Instructions: Pleuritic Chest Pain (DC), Acute Bronchitis, Child (DC) Add. Discharge Instructions: CONTINUE PREDNISONE PRESCRIBED FINISH ZITHROMAX FOLLOW UP WITH DR. CELESTE NEXT WEEK FOR FURTHER CARE All discharge instructions reviewed with patient and/or family. Voiced understanding. Scripts Albuterol Sulfate (Ventolin Hfa Common Canister)1 Puff Puff2 Puff IH Q4H BREATHING #1 GM Prov:AMY OLIVAS DO 10/12/16 Hydrocodone/Ibuprofen (Hydrocodone-Ibuprofen 7.5-200)1 Each Tablet1-2 Each PO Q4H Pain #20 TAB Prov:AMY OLIVAS DO 10/12/16 Cefdinir 300 Mg [id number] Mg PO BID FOR INFECTION #20 CAP Prov:AMY OLIVAS DO 10/12/16 AMY OLIVAS DO Oct 12, 2016 02:20
[2016-10-12 02:30] LABS: BASOPHILS % (AUTO) 0 % (0-10); EOSINOPHILS % (AUTO) 0 % (0-10); LYMPHOCYTES # (AUTO) 2.2 X 10^3 (1.0-4.0); LYMPHOCYTES % (AUTO) 13 % (12-44); MEAN CORPUSCULAR HEMOGLOBIN 29 PG (25-34); MEAN CORPUSCULAR HGB CONC 34 G/DL (32-36); MEAN CORPUSCULAR VOLUME 85 FL (80-99); MONOCYTES # (AUTO) 1.8 X 10^3 (0.0-1.0); MONOCYTES % (AUTO) 10 % (0-12); NEUTROPHILS # (AUTO) 13.3 X 10^3 (1.8-7.8); NEUTROPHILS % (AUTO) 77 % (42-75); PLATELET COUNT 375 10^3/uL (130-400); RED BLOOD COUNT 4.97 10^6/uL (4.35-5.85); RED CELL DISTRIBUTION WIDTH 16.4 % (10.0-14.5); WHITE BLOOD COUNT 17.4 10^3/uL (4.3-11.0)
[2016-10-12 02:48] LABS: ALANINE AMINOTRANSFERASE 47 U/L (0-55); ALBUMIN 4.6 G/DL (3.2-4.5); ANION GAP 13 MMOL/L (5-14); ASPARTATE AMINO TRANSFERASE 12 U/L (5-34); BAND NEUTROPHILS 0 %; BASOPHILS % (MANUAL) 0 %; BILIRUBIN,TOTAL 0.2 MG/DL (0.1-1.0); BLOOD UREA NITROGEN 9 MG/DL (7-18); BUN/CREATININE RATIO 13; CALCIUM 9.8 MG/DL (8.5-10.1); CARBON DIOXIDE 21 MMOL/L (21-32); CHLORIDE 107 MMOL/L (98-107); CREATININE SERUM 0.67 MG/DL (0.60-1.30); EOSINOPHILS % (MANUAL) 0 %; GFR ESTIMATED > 60; GLUCOSE 124 MG/DL (70-105); LYMPHOCYTES % (MANUAL) 15 %; NEUTROPHILS % (MANUAL) 72 %; POTASSIUM 4.1 MMOL/L (3.6-5.0); SODIUM 141 MMOL/L (135-145); TOTAL PROTEIN 7.1 G/DL (6.4-8.2)
[2016-10-12 02:49] LABS: ANISOCYTOSIS SLIGHT; HYPOCHROMASIA SLIGHT; REACTIVE LYMPHOCYTES 2 %
[2016-10-12] MEDS ORDERED: IOHEXOL 350 MG/ML 150 ML (OMNIPAQUE 350) VIAL IV ONE (03:30)
[2016-10-12] MEDS ORDERED: NS 100 ML (IVPB) BAG IV ONE (03:30)
[2016-10-12] MEDS ORDERED: cefTRIAXone INJECTION 1,000 MG in NS (IVPB) 50 ML IV ONE (04:30)
[2016-10-12] MEDS ORDERED: KETOROLAC 30 MG/ML VIAL IVP STA (04:30)
[2016-10-12] MEDS ORDERED: HYDROcodone/APAP 7.5 MG/325 MG (LORTAB, LORCET PLUS) TABLET PO ONE (04:30)
[2016-10-12] MEDS ORDERED: CEFD300C3 PO (04:32)
[2016-10-12] MEDS ORDERED: HYDR-87 PO (04:32)
[2016-10-12] MEDS ORDERED: RT-ALBUINH IH (04:32)
[2016-10-12 04:40] VITALS: BP 129/67
--- NOTE | 2016-10-12 06:40 | Diagnostic Imaging Report ---
PROCEDURE: CT angiography of the chest with contrast. TECHNIQUE: Multiple contiguous axial images were obtained through the chest after uneventful bolus administration of intravenous contrast. Reconstructed CTA MIP acquisitions were also performed. INDICATION: Cough and congestion x7 days. FINDINGS: There is infiltrate in the right lung base with some atelectasis as well. There are air bronchograms. Minimal atelectasis noted in the left lung base. No pleural effusions or pneumothorax. There is good enhancement of the aorta and pulmonary arteries following IV contrast. No evidence of aortic dissection or aneurysm. Pulmonary arteries are well opacified with no filling defect to suggest pulmonary emboli. No pleural effusions or pericardial effusion. No pneumothorax. IMPRESSION: 1. No evidence of pulmonary emboli. 2. Finding consistent with consolidated pneumonia right lower lobe with some associated atelectasis as well. These findings are in agreement with the preliminary report. Dictated by: Dictated on workstation # [id number]
[2016-10-13] MEDS ORDERED: OXYC-197 PO ×2 (06:21→06:29)
== END 2016-10-12 04:46 | disposition home or self-care (01) ==
LOC: EDUNIT# 01:58 → ER 02:01
DX: J40 Bronchitis, not specified as acute or chronic (principal); R07.81 Pleurodynia; I10 Essential (primary) hypertension; E11.9 Type 2 diabetes mellitus without complications; F17.210 Nicotine dependence, cigarettes, uncomplicated; Z79.82 Long term (current) use of aspirin; Z79.84 Long term (current) use of oral hypoglycemic drugs; Z79.899 Other long term (current) drug therapy
CPT/HCPCS: 36415; 71275; 80053; 83605; 85007; 85027; 87040; 87804; 96374; 96375

== ENCOUNTER 2016-10-13 04:26 | Emergency (ER) | payer BC ==
[~2016-10-13] VITALS: Ht 165.1 cm; Wt 83.9 kg
[~2016-10-13 04:26] MED LIST changes: +CEFD300C3 PO; +HYDR-87 PO; +RT-ALBUINH IH
--- OUTSIDE RECORDS SUMMARY | 2016-10-13 04:33 | XMS REPORT | Continuity of Care Document ---
Author Author [facility] Organization [facility] Address Unknown Phone Unavailable Allergies Active Description Code Type Severity Reaction Onset Reported/Identified Relationship to Patient Clinical Status Yes morphine [id number] Drug Allergy Unknown ITCHING 07/10/2007 Medications Problems [...] SONA Connolly Ot 574.20 01/26/2015 FRANCINE HARDWICK LOFTSMAN Ot 611.72 01/26/2015 FRANCINE HARDWICK Ot 793.80 [...] NAUSEA WITH VOMITING 03/01/2015 VANBECELAERE, FRANCINE M LOFTSMAN Ot 789.33 03/02/2015 VANBECELAERE, FRANCINE M LOFTSMAN Ot 562.11 03/10/2015 VANBECELAERE, FRANCINE M LOFTSMAN Ot 789.33 03/21/2015 DERREK FORDE, JAYNA Mota [...] Connolly Ot 574.20 05/22/2015 VANBECELAERE, FRANCINE M LOFTSMAN Ot 611.72 05/22/2015 VANBECELAERE, FRANCIEN M LOFTSMAN Ot 793.80 05/22/2015 Ot 611.72 05/22/2015 VANBECELAERE, FRANCINE M LOFTSMAN Ot 562.11 05/22/2015 VANBECELAERE, FRANCINE M LOFTSMAN Ot 789.33 05/22/2015 LUCA CELESTE DOLINE S Ot 573.8 05/22/2015 DERREK FORDE, JAYNA Mota Ot V72.84 06/12/2015 DAPHNIE FORDE, SONA Connolly Ot 610.0 06/12/2015 DAPHNIE FORDE, OSNA Connolly Ot 793.80 06/21/2015 DAPHNIE FORDE, SONA [...] DAPHNIE FORDE, SONA Connolly Ot 574.20 10/12/2015 [facility] FRANCINE M LOFTSMAN Ot 611.72 10/12/2015 [facility] FRANCINE M LOFTSMAN Ot 793.80 10/12/2015 Ot 611.72 10/12/2015 [facility] LOFTSMAN Ot 562.11 10/12/2015 [facility] FRANCINE M LOFTSMAN Ot 789.33 10/12/2015 SHABNAM CELESTE DOQUELINE S [...] Ot 574.20 CHOLELITHIASIS NOS 12/10/2015 MULUTRANGSA Erickson LOFTSMAN Ot 611.72 LUMP OR MASS IN BREAST 12/10/2015 MULU FRANCINE Dre LOFTSMAN Ot 793.80 UNSPEC ABNORMAL MAMMOGRAM 12/10/2015 Ot 611.72 LUMP OR MASS IN BREAST 12/10/2015 FRANCINE HARDWICK LOFTSMAN Ot 562.11 DIVERTICULITIS COLON (W/O MENT OF HEMORR 12/10/2015 FRANCINE HARDWICK LOFTSMAN Ot 789.33 ABDOMINAL/PELVIC SWELLING,MASS/ LUMP,RT L 12/10/2015 [...] NICOTINE DEPENDENCE, CIGARETTES, UNCOMPL 03/22/2016 TESSY RYDER GIS WEB DEVELOPER Ot K57.32 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 03/22/2016 TESSY RYDER GIS WEB DEVELOPER Ot R10.32 LEFT LOWER QUADRANT PAIN 03/25/2016 TESSY RYDER GIS WEB DEVELOPER Ot K57.32 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 03/25/2016 TESSY RYDER APRN Ot R10.32 LEFT LOWER QUADRANT PAIN 03/25/2016 TESSY RYDER GIS WEB DEVELOPER Ot F17.210 NICOTINE DEPENDENCE, CIGARETTES, UNCOMPL 03/25/2016 TESSY RYDER GIS WEB DEVELOPER Ot K57.32 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 03/25/2016 TESSY RYDER GIS WEB DEVELOPER Ot R10.32 LEFT LOWER QUADRANT PAIN 04/04/2016 MALOU NORTH APRN Ot D72.829 ELEVATED WHITE BLOOD CELL COUNT, UNSPECI 04/04/2016 MALOU NORTH APRN Ot K57.92 DVTRCLI OF INTEST, PART UNSP, W/O PERF O 04/05/2016 MALOU NORTH GIS WEB DEVELOPER Ot E86.0 DEHYDRATION 04/05/2016 MALOU NORTH GIS WEB DEVELOPER Ot K57.92 DVTRCLI OF INTEST, PART UNSP, W/O PERF O 04/05/2016 MALOU NORTH GIS WEB DEVELOPER Ot R11.0 NAUSEA 04/19/2016 MALOU NORTH GIS WEB DEVELOPER Ot E86.0 DEHYDRATION 04/19/2016 MALOU NORTH APRN Ot K57.92 DVTRCLI OF INTEST, PART UNSP, W/O PERF O 04/19/2016 MALOU NORTH GIS WEB DEVELOPER Ot R11.0 NAUSEA 04/19/2016 MALOU NORTH GIS WEB DEVELOPER Ot D72.829 ELEVATED WHITE BLOOD CELL COUNT, UNSPECI 04/19/2016 MALOU NORTH GIS WEB DEVELOPER Ot K57.92 DVTRCLI OF INTEST, PART UNSP, [...] 574.20 CHOLELITHIASIS NOS 04/30/2016 FRANCINE HARDWICK M LOFTSMAN Ot 611.72 LUMP OR MASS IN BREAST 04/30/2016 MULU FRANCINE M LOFTSMAN Ot 793.80 UNSPEC ABNORMAL MAMMOGRAM 04/30/2016 Ot 611.72 LUMP OR MASS IN BREAST 04/30/2016 TRANG HARDWICKSA M LOFTSMAN Ot 562.11 DIVERTICULITIS COLON (W/O MENT OF HEMORR 04/30/2016 FRANCINE HARDWICK M LOFTSMAN Ot 789.33 ABDOMINAL/PELVIC SWELLING,MASS/ LUMP,RT L 04/30/2016 ALECIA CELESTE DO Ot 573.8 LIVER DISORDERS NEC 04/30/2016 DERREK FORDE, JAYNA Mota Ot V72.84 EXAM PRE-OPERATIVE NOS 04/30/2016 DAPHNIE FORDE, SONA Connolly Ot 610.0 SOLITARY CYST OF BREAST 04/30/2016 DAPHNIE FORDE, SONA Connolly Ot 793.80 UNSPEC ABNORMAL MAMMOGRAM 04/30/2016 ALECIA CELESTE DO S Ot R05 COUGH 04/30/2016 MALOU NORTH GIS WEB DEVELOPER Ot E86.0 DEHYDRATION 04/30/2016 MALOU NORTH GIS WEB DEVELOPER Ot K57.92 DVTRCLI OF INTEST, PART UNSP, W/O PERF O 04/30/2016 MALOU NORTH GIS WEB DEVELOPER Ot R11.0 NAUSEA 04/30/2016 MALOU NORTH GIS WEB DEVELOPER Ot D72.829 ELEVATED WHITE BLOOD CELL COUNT, UNSPECI 04/30/2016 MALOU NORTH GIS WEB DEVELOPER Ot K57.92 DVTRCLI OF INTEST, PART UNSP, W/O PERF O 04/30/2016 MALOU NORTH GIS WEB DEVELOPER Ot K57.92 DVTRCLI OF INTEST, PART UNSP, [...] 574.20 CHOLELITHIASIS NOS 07/01/2016 FRANCINE HARDWICK M LOFTSMAN Ot 611.72 LUMP OR MASS IN BREAST 07/01/2016 FRANCINE HARDWICK M LOFTSMAN Ot 793.80 UNSPEC ABNORMAL MAMMOGRAM 07/01/2016 Ot 611.72 LUMP OR MASS IN BREAST 07/01/2016 FRANCINE HARDWICK M LOFTSMAN Ot 562.11 DIVERTICULITIS COLON (W/O MENT OF HEMORR 07/01/2016 FRANCINE HARDWICK M LOFTSMAN Ot 789.33 ABDOMINAL/PELVIC SWELLING,MASS/ LUMP,RT L 07/01/2016 ALECIA CELESTE DO S Ot 573.8 LIVER DISORDERS NEC 07/01/2016 DERREK FORDE, JAYNA Mota Ot V72.84 EXAM PRE-OPERATIVE NOS 07/01/2016 SONA ELLER MD Ot 610.0 SOLITARY CYST OF BREAST 07/01/2016 SONA ELLER MD Ot 793.80 UNSPEC ABNORMAL MAMMOGRAM 07/01/2016 ALECIA CELESTE DO S Ot R05 COUGH 07/01/2016 MALOU NORTH GIS WEB DEVELOPER Ot E86.0 DEHYDRATION 07/01/2016 MALOU NORTH APRN Ot K57.92 DVTRCLI OF INTEST, PART UNSP, W/O PERF O 07/01/2016 MALOU NORTH APRN Ot R11.0 NAUSEA 07/01/2016 MALOU NORTH GIS WEB DEVELOPER Ot D72.829 ELEVATED WHITE BLOOD CELL COUNT, UNSPECI 07/01/2016 MALOU NORTH Manoj GIS WEB DEVELOPER Ot K57.92 DVTRCLI OF INTEST, PART UNSP, W/O PERF O 07/01/2016 MALOU NORTH GIS WEB DEVELOPER Ot K57.92 DVTRCLI OF INTEST, PART UNSP, [...] K Ot E11.49 TYPE 2 DIABETES [facility] 08/10/2016 BRENDON DO, AMY K Ot I10 ESSENTIAL (PRIMARY) HYPERTENSION 08/10/2016 BRENDON DO, AMY K Ot T81.4XXA INFECTION FOLLOWING A PROCEDURE, INITIAL 08/10/2016 BRENDON DO, AMY K Ot Z79.82 CARE HOME (CURRENT) USE OF ASPIRIN 08/10/2016 BRENDON DO, AMY K Ot Z79.84 INTEGRITY CONSULTANT (CURRENT) USE OF ORAL HYPOGLYC 08/10/2016 BRENDON DO, AMY K Ot Z79.899 OTHER INTEGRITY CONSULTANT (CURRENT) DRUG THERAPY 08/10/2016 BRENDON DO, AMY K Ot Z90.49 ACQUIRED ABSENCE OF OTHER SPECIFIED PART 08/12/2016 BRENDON DO, AMY K Ot E11.49 TYPE 2 DIABETES [facility] 08/12/2016 BRENDON DO, AMY K Ot I10 ESSENTIAL (PRIMARY) HYPERTENSION 08/12/2016 BRENDON DO, AMY K Ot T81.4XXA INFECTION FOLLOWING A PROCEDURE, INITIAL 08/12/2016 BRENDON DO, AMY K Ot Z79.82 INTEGRITY CONSULTANT (CURRENT) USE OF ASPIRIN 08/12/2016 BRENDON DO, AMY K Ot Z79.84 INTEGRITY CONSULTANT (CURRENT) USE OF ORAL HYPOGLYC 08/12/2016 BRENDON DO, AMY K Ot Z79.899 OTHER CARE HOME (CURRENT) DRUG THERAPY 08/12/2016 BRENDON BARRETT AMY [...] 18:00 Bacteria identification in wound by culture [id number] NRG QUANTITY OF GROWTH Scant Growth NRG [...] 19:25 Bacteria identification in wound by culture [id number] [facility] FREE TEXT EXTERNAL SENSITIVITY REPORTED AT 1047, 16 NRG QUANTITY OF GROWTH Moderate Growth [facility] Bacterial susceptibility panel - 08/10/16 19:25 Gentamicin susceptibility test by minimum inhibitory concentration S NRG Erythromycin susceptibility test by minimum inhibitory concentration 1 NRG Vancomycin susceptibility test by minimum inhibitory concentration 1 NRG Ampicillin susceptibility test by minimum inhibitory concentration <= NRG Linezolid susceptibility test by minimum inhibitory concentration 2 NRG Complete blood count (CBC) with automated white blood cell (WBC) differential - 10/12/16 02:20 Blood leukocytes automated count (number/volume) 17.4 10*3/ uL 4.3-11.0 Blood erythrocytes automated count (number/volume) 4.97 10*6 /uL 4.35-5.85 Venous blood hemoglobin measurement (mass/volume) 14.4 g/dL 11.5-16.0 Blood hematocrit (volume fraction) 42 % 35-52 Automated erythrocyte mean corpuscular volume 85 [foz_us] 80-99 Automated erythrocyte mean corpuscular hemoglobin (mass per erythrocyte) 29 pg 25-34 Automated erythrocyte mean corpuscular hemoglobin concentration measurement ( mass/volume) 34 g/dL 32-36 Automated erythrocyte distribution width ratio 16.4 % 10.0-14.5 Automated blood platelet count (count/volume) 375 10*3/uL 130-400 Automated blood platelet mean volume measurement 10.0 [foz_ us] 7.4-10.4 Automated blood neutrophils/100 leukocytes 77 % 42-75 Automated blood lymphocytes/100 leukocytes 13 % 12-44 Blood monocytes/100 leukocytes 10 % 0-12 Automated blood eosinophils/100 leukocytes 0 % 0-10 Automated blood basophils/100 leukocytes 0 % 0-10 Blood neutrophils automated count (number/volume) 13.3 10*3 1.8-7.8 Blood lymphocytes automated count (number/volume) 2.2 10*3 1.0-4.0 Blood monocytes automated count (number/volume) 1.8 10*3 0.0-1.0 Automated eosinophil count 0.0 10*3/uL 0.0-0.3 Automated blood basophil count (count/volume) 0.0 10*3/uL 0.0-0.1 Influenza virus A and B antigen detection - 02/18/17 02:20 FLU RESULT NEGATIVE FOR INFLUENZA A AND B ANTIGENS BY IA NRG Blood manual differential performed detection - 10/12/16 02:20 Blood monocytes/100 leukocytes 11 % NRG Manual blood segmented neutrophils/100 leukocytes 72 % NRG Blood band neutrophils/100 leukocytes 0 % NRG Manual blood lymphocytes/100 leukocytes 15 % NRG Manual eosinophils/100 leukocytes in nose 0 % NRG Manual blood basophils/100 leukocytes 0 % NRG Blood lymphocytes variant/100 leukocytes 2 % NRG Blood anisocytosis detection by light microscopy SLIGHT NRG Blood toxic granules detection by light microscopy 1+ NRG Blood hypochromia detection by light microscopy SLIGHT NRG Blood lactic acid measurement (moles/volume) - 10/12/16 02:20 Blood lactic acid measurement (moles/volume) 1.2 mmol/L 0.5-2.0 Comprehensive metabolic panel - 10/12/16 02:20 Serum or plasma sodium measurement (moles/volume) 141 mmol/ L 135-145 Serum or plasma potassium measurement (moles/volume) 4.1 mmol/L 3.6-5.0 Serum or plasma chloride measurement (moles/volume) 107 mmol /L 98-107 Carbon dioxide 21 mmol/L 21-32 Serum or plasma anion gap determination (moles/volume) 13 mmol/L 5-14 Serum or plasma urea nitrogen measurement (mass/volume) 9 mg /dL 7-18 Serum or plasma creatinine measurement (mass/volume) 0.67 mg /dL 0.60-1.30 Serum or plasma urea nitrogen/creatinine mass ratio 13 NRG Serum or plasma creatinine measurement with calculation of estimated glomerular filtration rate > NRG Serum or plasma glucose measurement (mass/volume) 124 mg/dL 70-105 Serum or plasma calcium measurement (mass/volume) 9.8 mg/dL 8.5-10.1 Serum or plasma total bilirubin measurement (mass/volume) 0.2 mg/dL 0.1-1.0 Serum or plasma alkaline phosphatase measurement (enzymatic activity/volume) 66 U/L 40-136 Serum or plasma aspartate aminotransferase measurement (enzymatic activity/ volume) 12 U/L 5-34 Serum or plasma alanine aminotransferase measurement (enzymatic activity/volume ) 47 U/L 0-55 Serum or plasma protein measurement (mass/volume) 7.1 g/dL 6.4-8.2 Serum or plasma albumin measurement (mass/volume) 4.6 g/dL 3.2-4.5 Encounters ACCT No. Visit Date/Time Discharge Status Pt. Type Provider Facility Loc./Unit Complaint [id number] 10/12/2016 02:01:00 2016 04:46:00 DIS Emergency AMY OLIVAS DO [facility] ER HARD TO BREATH [id number] 08/10/2016 16:28:00 2015 19:45:00 DIS Emergency BRENDON AMY BARRETT [facility] ER INCISION REDNESS/PAIN [id number] 03/22/2016 13:10:00 2015 15:26:00 DIS Emergency TESSY RYDER APRN [facility] ER STOMACH PAIN/NAUSEA/HEADACHE [id number] 12/10/2015 15:36:00 2015 16:02:00 DIS Emergency RYAN VENEGAS MD [facility] ER CHEST CONGESTION/COUGH [id number] 10/24/2015 11:23:00 2015 10:35:00 DIS Inpatient ALECIA CELESTE DO [facility] 4TH DIVERTICULITIS [id number] 05/22/2015 14:05:00 2014 23:59:59 CLS Outpatient SONA ELLER MD [facility] RAD 6 MONTH FOLLOW UP [id number] 03/21/2015 08:01:00 2014 10:55:00 DIS Outpatient JAYNA ANGLIN MD [facility] SDC SCREENING [id number] 03/16/2015 06:41:00 2014 23:59:59 CLS Outpatient JAYNA ANGLIN MD [facility] PREOP SCREENING [id number] 03/13/2015 08:41:00 2014 23:59:59 CLS Outpatient ALECIA CELESTE DO [facility] RAD LIVER LESION [id number] 02/20/2015 09:43:00 2014 23:59:59 CLS Outpatient FRANCINE HARDWICK [facility] RAD PELVIC MASS, RLQ PAIN [id number] 02/19/2015 09:20:00 2014 11:42:00 DIS Emergency BOBBY FORDE, JOHANA Hart [facility] ER VOMITING/DIARRHEA [id number] 02/17/2015 11:13:00 2014 23:59:59 CLS Outpatient FRANCINE HARDWICK LOFTSMAN [facility] RAD ABDOMINAL PAIN [id number] 04/13/2014 13:33:00 2013 23:59:59 CLS Outpatient FRANCINE HARDWICK LOFTSMAN [facility] RAD PALPABLE RT BREAST MASS [id number] 10/14/2013 11:58:00 2013 23:59:59 CLS Outpatient SONA ELLER MD [facility] RAD BILLIARY COLIC [id number] 10/06/2013 07:57:00 2013 23:59:59 CLS Outpatient SONA ELLER MD [facility] RAD SCREENING,BILIARY COLIC [id number] 10/07/2016 09:16:00 ACT Outpatient MALOU NORTH GIS WEB DEVELOPER [facility] RAD COUGH,CONGESTION,TOBACOO ABUSE [id number] 07/25/2016 10:13:00 ACT Outpatient EMILY WOODARD DO [facility] LAB UTI [id number] 07/01/2016 14:39:00 ACT Outpatient SONA ELLER MD [facility] RAD SCREENING [id number] 04/05/2016 08:53:00 ACT Outpatient MALOU NORTH GIS WEB DEVELOPER [facility] LAB ACUTE DIVERTICULITIS [id number] 04/03/2016 08:37:00 ACT Outpatient MALOU NORTH GIS WEB DEVELOPER [facility] LAB CBCWD [id number] 04/02/2016 11:17:00 ACT Outpatient MALOU NORTH GIS WEB DEVELOPER [facility] SDC N/V DEHYDRATION [id number] 10/12/2015 14:41:00 ACT Outpatient ALECIA CELESTE DO [facility] RAD COUGH [id number] 01/19/2015 01:29:00 Document Registration [id number] 10/28/2014 08:13:00 Document Registration [id number] 04/15/2012 08:09:00 Document Registration [id number] 07/19/2011 09:46:00 Document Registration [id number] 01/15/2011 12:25:00 Document Registration [id number] 09/14/2010 20:45:00 Document Registration [id number] 08/08/2010 20:09:00 Document Registration [id number] 07/16/2010 08:07:00 Document Registration
[2016-10-13] MEDS ORDERED: NS IV 1000 ML 1,000 ML IV ONE (04:45)
[2016-10-13] MEDS ORDERED: fentaNYL INJECTION 100 MCG/2 ML AMP IVP ONE (04:45)
[2016-10-13] MEDS ORDERED: KETOROLAC 30 MG/ML VIAL IVP ONE (04:45)
--- NOTE | 2016-10-13 05:39 | ED Chest Pain ---
General Chief Complaint: Chest Pain Stated Complaint: SOA Nursing Triage Note: c/o R sided chest pain and soa. reports was evaluated in ed 1 day prior and diagnosed with paty Jenkins Sepsis Screen: No Definite Risk Source: patient, old records Exam Limitations: no limitations History of Present Illness Time seen by provider: 04:35 Initial Comments This 55-year-old lady is presenting to the emergency room with fairly severe right sided chest pain that is pleuritic in nature. Breathing exacerbates the pain tremendously which is sharp in nature. Patient was seen yesterday and CT angiogram of the chest was performed. Per the ER visit note, no pneumonia or pulmonary emboli were identified based on the Stat Rad read. However, the daytime reading of the CT noted a consolidation in the right lower lung consistent with pneumonia. Patient is on her second round of steroids. She was taking azithromycin and Omnicef was added yesterday. She has taken 2 doses. Patient was prescribed Vicoprofen during her ER visit yesterday but did not fill it yet. She has been taking plain hydrocodone left over from a prior encounter. She did take a 400 mg dose of ibuprofen at 01:00. Patient's vital signs are stable and she is afebrile. She continues to smoke. Allergies and Home Medications Allergies Coded Allergies: morphine (Verified Allergy, Unknown, ITCHING, 07/10/07) Home Medications Unknown Dose PO DAILY (Reported) Albuterol Sulfate 1 Puff Puff #1 2 PUFF IH Q4H Prescribed by: AMY OLIVAS on 10/12/16431 Ascorbic Acid 1,000 Mg Tablet.er 1,000 MG PO DAILY (Reported) Aspirin 81 Mg Tablet.dr 81 MG PO DAILY (Reported) Cefdinir 300 Mg Capsule #20 300 MG PO BID Prescribed by: AMY OLIVAS on 10/12/16431 Duloxetine HCl 60 Mg Capsule.dr 60 MG PO DAILY (Reported) Hydrocodone/Ibuprofen 1 Each Tablet #20 1-2 EACH PO Q4H Prescribed by: AMY OLIVAS on 10/12/16431 Lisinopril 40 Mg Tablet 40 MG PO DAILY (Reported) Metformin HCl 500 Mg Tablet 500 MG PO DAILY (Reported) Multivitamin 1 Each Tablet 1 EACH PO DAILY (Reported) Oxycodone HCl/Acetaminophen 1 Each Tablet #14 1-2 EACH PO Q4H PRN PRN PAIN Prescribed by: DELROY MUELLER on 10/13/16 0629 Vitamin B Complex 1 Each Capsule 1 EACH PO DAILY (Reported) Vitamin E Acetate 1,000 Unit Capsule 1,000 UNIT PO DAILY (Reported) Review of Systems Constitutional: no symptoms reported EENTM: No Symptoms Reported Respiratory: See HPI Cardiovascular: No Symptoms Reported Gastrointestinal: No Symptoms Reported Genitourinary: No Symptoms Reported Musculoskeletal: no symptoms reported Skin: no symptoms reported Psychiatric/Neurological: No Symptoms Reported Endocrine: No Symptoms Reported Past Borzyiw-Xcuqln-Kgvomo Hx Patient Social History Alcohol Use: Denies Use Recreational Drug Use: No Smoking Status: Current Everyday Smoker Type Used: Cigarettes Recent Foreign Travel: No Contact w/Someone Who Travel: No Recent Infectious Disease Expo: No Recent Hopitalizations: Yes (07/03/16--COLON RESECTION FOR DIVERTICULITIS--DR. 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, Menopausal Genitourinary Hx Genitourinary Disorders: No Gastrointestinal Hx Gastrointestinal Disorders: Yes Gastrointestinal Disorders: Diverticulosis Musculoskeletal Hx Musculoskeletal Disorders: No Endocrine Hx Endocrine Disorders: Yes (PRE-DIABETIC) Endocrine Disorders: Diabetes, Non-Insulin dep HEENT HX ENT Disorders: No Loss of Vision: Denies Hearing Impairment: Denies Cancer Hx Cancer: No Psychosocial Hx Psychiatric Problems: Yes Behavioral Health Disorders: Anxiety, Depression Integumentary HX Skin/Integumentary Disorder: No Blood Transfusions Hx Blood Disorders: No Physical Exam Vital Signs Vital Sign - Last 12Hours 10/13/16 04:29 Temp 97.8 Pulse 83 Resp 24 B/P 122/63 Pulse Ox 94 Capillary Refill : Less Than 3 Seconds General Appearance: No Apparent Distress WD/WN HEENT: PERRL/EOMI Normal ENT Inspection Neck: Normal Inspection Respiratory: Chest Non Tender Lungs Clear Normal Breath Sounds Other ( splinting) Cardiovascular: Regular Rate, Rhythm No Edema No Murmur Gastrointestinal: Normal Bowel Sounds Non Tender Soft Extremity: Normal Inspection No Pedal Edema Neurologic/Psychiatric: Alert Oriented x3 No Motor/Sensory Deficits Normal 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 Norm as Tested Skin: Normal Color Warm/DryNo Rash Progress/Results/Core Measures Results/Orders My Orders Orders-DELROY BURRIS MD Ekg Tracing (10/13/16 04:36) O2 (10/13/16 04:36) Monitor-Rhythm Ecg Trace Only (10/13/16 04:36) Saline Lock/Iv-Start (10/13/16 04:36) Ketorolac Injection (Toradol Injection) (10/13/16 04:45) Fentanyl Injection (Sublimaze Injection (10/13/16 04:45) Ns Iv 1000 Ml (Sodium Chloride 0.9%) (10/13/16 04:45) Chest Pa/Lat (2 View) (10/13/16 04:48) Ceftriaxone Injection (Rocephin Injectio (10/13/16 05:45) Oxycodone/Apap 5/325mg Tablet (Percocet (10/13/16 06:30) Medications Given in ED Current Medications Medications Dose Ordered Sig/Paul Route Start Time Stop Time Status Last Admin Dose Admin Ceftriaxone Sodium/Sodium Chloride 50 ml @ 100 mls/hr ONCE ONCE IV 10/13/16 05:45 10/13/16 06:14 DC 10/13/16 05:47 100 MLS/HR Fentanyl Citrate 75 mcg 75 mcg ONCE ONCE IVP 10/13/16 04:45 10/13/16 04:47 DC 10/13/16 05:02 75 MCG Ketorolac Tromethamine 30 mg ONCE ONCE IVP 10/13/16 04:45 10/13/16 04:47 DC 10/13/16 05:02 30 MG Oxycodone/ Acetaminophen 1 tab ONCE ONCE PO 10/13/16 06:30 10/13/16 06:31 DC 10/13/16 06:25 1 TAB Sodium Chloride 1,000 ml @ 0 mls/hr Q0M ONCE IV 10/13/16 04:45 10/13/16 04:47 DC 10/13/16 05:01 0 MLS/HR Vital Signs/I&O Vital Sign - Last 12Hours 10/13/16 10/13/16 10/13/16 10/13/16 04:29 04:29 04:29 06:26 Temp 97.8 98.2 Pulse 83 89 Resp 24 18 B/P 122/63 Pulse Ox 94 92 O2 Delivery Room Air Room Air Room Air Blood Pressure Mean: 82 Progress Note : Time: 06:00 Progress Note Patient was treated with Toradol and fentanyl with excellent results. A dose of Rocephin is being infused. Patient's pneumonia is not unstable as her vital signs are within normal limits. I would like to avoid admission if we can control her pain. We discussed strategies for outpatient pain management to include regular doses of ibuprofen with use of Percocet as a backup medication. ECG Initial ECG Impression Date: Oct 13, 2016 Initial ECG Impression Time: 04:46 Initial ECG Rate: 85 Initial ECG Rhythm: Normal Sinus Initial ECG Intervals: Normal Initial ECG Impression: Normal Diagnostic Imaging Diagonstic Imaging: Xray Plain Films/CT/US/NM/MRI: chest Comments Right lower lobe consolidation/infiltrate consistent with pneumonia noted on CT angiogram yesterday. Viewed by me but report not available. Departure Impression Impression: Primary Impression: Right lower lobe pneumonia Qualified Code: J18.1 - Lobar pneumonia, unspecified organism Additional Impression: Pleuritic chest pain Disposition: HOME, SELF-CARE Condition: Improved Departure-Patient Inst. Decision time for Depature: 05:35 Referrals: ALECIA CELESTE DO (PCP/Family) Primary Care Physician Patient Instructions: Community-Acquired Pneumonia in Adults, Pleuritic Chest Pain Add. Discharge Instructions: Complete your antibiotics as prescribed. For primary pain control, take ibuprofen 400 mg every 4 hours or 600 mg every 6 hours. Add Percocet as prescribed for pain not controlled by ibuprofen. If you fill the Percocet prescription, destroy the Vicoprofen (hydrocodone/ ibuprofen) prescription. Use your inhaler for shortness of breath as prescribed. Quit smoking immediately and completely. You may use an alternative nicotine such as gum, patches, or lozenges. Do not replace cigarettes with vapor products. Contact the emergency room today if your symptoms are not adequately controlled at home and you believe admission might be necessary. All discharge instructions reviewed with patient and/or family. Voiced understanding. Scripts Oxycodone HCl/Acetaminophen (Percocet 5-325 mg Tablet)1 Each Tablet1-2 Each PO Q4H PRN PAIN #14 TAB Prov:BRUEGGEMANN,DELROY T MD 10/13/16 Copy Copies To 1: ALECIA CELESTE JOSHUA T MD Oct 13, 2016 05:39
[2016-10-13] MEDS ORDERED: cefTRIAXone INJECTION 1,000 MG in NS (IVPB) 50 ML IV ONE (05:45)
--- NOTE | 2016-10-13 05:58 | Diagnostic Imaging Report ---
INDICATION: Cough and congestion. COMPARISON: 10/07/2016. FINDINGS: Development of right middle lobe subtotal consolidations compatible with pneumonia. No pleural effusion or pneumothorax. Cardiomediastinal silhouette is normal. IMPRESSION: Development of right middle lobe pneumonia. Dictated by: Dictated on workstation # [id number]
[2016-10-13] MEDS ORDERED: OXYC-197 PO ×2 (06:21→06:29)
[2016-10-13 06:26] VITALS: BP 118/52
[2016-10-13] MEDS ORDERED: oxyCODONE/APAP 5/325MG (PERCOCET 5) TABLET PO ONE (06:30)
[2016-10-14] MEDS ORDERED: ESTR1TAB37 PO (14:38)
[2016-10-14] MEDS ORDERED: CEFD300C3 PO (14:44)
[2016-10-14] MEDS ORDERED: PRD20T PO (14:54)
[2016-10-14] MEDS ORDERED: IBUP-30 PO (14:55)
== END 2016-10-13 06:31 | disposition home or self-care (01) ==
LOC: EDUNIT# 04:26 → ER 04:28
DX: J18.9 Pneumonia, unspecified organism (principal); R07.81 Pleurodynia; I10 Essential (primary) hypertension; E11.9 Type 2 diabetes mellitus without complications; Z79.82 Long term (current) use of aspirin; Z79.84 Long term (current) use of oral hypoglycemic drugs; Z79.899 Other long term (current) drug therapy
CPT/HCPCS: 71020; 93005; 93041; 96361; 96365; 96375

== ENCOUNTER 2016-10-14 11:12 | Inpatient (IN) | payer BC ==
[~2016-10-14] VITALS: Ht 165.1 cm; Wt 83.9 kg
[~2016-10-14 11:12] MED LIST changes: +OXYC-197 PO
--- OUTSIDE RECORDS SUMMARY | 2016-10-14 11:19 | XMS REPORT | Continuity of Care Document ---
Author Author [facility] Organization [facility] Address Unknown Phone Unavailable Allergies Active Description Code Type Severity Reaction Onset Reported/Identified Relationship to Patient Clinical Status Yes morphine [id number] Drug Allergy Unknown ITCHING 07/10/2007 Medications Problems [...] SONA Connolly Ot 574.20 01/26/2015 FRANCINE HARDWICK SUPERCALENDER OPERATOR Ot 611.72 01/26/2015 FRANCINE HARDWICK Ot 793.80 [...] NAUSEA WITH VOMITING 03/01/2015 VANBECELAERE, FRANCINE M SUPERCALENDER OPERATOR Ot 789.33 03/02/2015 VANBECELAERE, FRANCINE M SUPERCALENDER OPERATOR Ot 562.11 03/10/2015 VANBECELAERE, FRANCINE M SUPERCALENDER OPERATOR Ot 789.33 03/21/2015 DERREK FORDE, JAYNA Mota Ot 562.10 DIVERTICULOSIS COLON (W/O MENT OF HEMORR 03/21/2015 DERREK FORDE, JAYNA Mota Ot V76.51 SCREEN MAL NEOP-COLON 03/29/2015 ALECIA CELESTE DO S Ot 573.8 04/17/2015 ALECIA CELESTE DO S Ot 573.8 05/22/2015 DAPHNIE FRODE, SONA Connolly Ot 574.20 05/22/2015 DAPHNIE FORDE, SONA Connolly Ot 793.89 05/22/2015 DAPHNIE FORDE, SONA Connolly Ot V76.12 05/22/2015 DAPHNIE FORDE, SONA Connolly Ot 574.20 05/22/2015 VANBECELAERE, FRANCINE M SUPERCALENDER OPERATOR Ot 611.72 05/22/2015 VANBECELAERE, FRANCINE M SUPERCALENDER OPERATOR Ot 793.80 05/22/2015 Ot 611.72 05/22/2015 VANBECELAERE, FRANCINE M SUPERCALENDER OPERATOR Ot 562.11 05/22/2015 VANBECELAERE, FRANCINE M SUPERCALENDER OPERATOR Ot 789.33 05/22/2015 LUCA CELESTE DOLINE S [...] DAPHNIE FORDE, SONA Connolly Ot 574.20 10/12/2015 [facility] M SUPERCALENDER OPERATOR Ot 611.72 10/12/2015 [facility] FRANC[facility] M SUPERCALENDER OPERATOR Ot 793.80 10/12/2015 Ot 611.72 10/12/2015 [facility] M SUPERCALENDER OPERATOR Ot 562.11 10/12/2015 [facility]INE M SUPERCALENDER OPERATOR Ot 789.33 10/12/2015 SHABNAM CELESTE DOQUELINE S [...] Ot 574.20 CHOLELITHIASIS NOS 12/10/2015 MULUTRANGSA Erickson SUPERCALENDER OPERATOR Ot 611.72 LUMP OR MASS IN BREAST 12/10/2015 MULU FRANCINE Dre SUPERCALENDER OPERATOR Ot 793.80 UNSPEC ABNORMAL MAMMOGRAM 12/10/2015 Ot 611.72 LUMP OR MASS IN BREAST 12/10/2015 FRANCINE HARDWICK SUPERCALENDER OPERATOR Ot 562.11 DIVERTICULITIS COLON (W/O MENT OF HEMORR 12/10/2015 FRANCINE HARDWICK SUPERCALENDER OPERATOR Ot 789.33 ABDOMINAL/PELVIC SWELLING,MASS/ LUMP,RT L 12/10/2015 [...] NICOTINE DEPENDENCE, CIGARETTES, UNCOMPL 03/22/2016 TESSY RYDER RN OBGYN Ot K57.32 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 03/22/2016 TESSY RYDER RN OBGYN Ot R10.32 LEFT LOWER QUADRANT PAIN 03/25/2016 TESSY RYDER RN OBGYN Ot K57.32 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 03/25/2016 TESSY RYDER APRN Ot R10.32 LEFT LOWER QUADRANT PAIN 03/25/2016 TESSY RYDER RN OBGYN Ot F17.210 NICOTINE DEPENDENCE, CIGARETTES, UNCOMPL 03/25/2016 TESSY RYDER RN OBGYN Ot K57.32 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 03/25/2016 TESSY RYDER RN OBGYN Ot R10.32 LEFT LOWER QUADRANT PAIN 04/04/2016 MALOU NORTH APRN Ot D72.829 ELEVATED WHITE BLOOD CELL COUNT, UNSPECI 04/04/2016 MALOU NORTH APRN Ot K57.92 DVTRCLI OF INTEST, PART UNSP, W/O PERF O 04/05/2016 MALOU NORTH RN OBGYN Ot E86.0 DEHYDRATION 04/05/2016 MALOU NORTH RN OBGYN Ot K57.92 DVTRCLI OF INTEST, PART UNSP, W/O PERF O 04/05/2016 MALOU NORTH RN OBGYN Ot R11.0 NAUSEA 04/19/2016 MALOU NORTH RN OBGYN Ot E86.0 DEHYDRATION 04/19/2016 MALOU NORTH APRN Ot K57.92 DVTRCLI OF INTEST, PART UNSP, W/O PERF O 04/19/2016 MALOU NORTH RN OBGYN Ot R11.0 NAUSEA 04/19/2016 MALOU NORTH RN OBGYN Ot D72.829 ELEVATED WHITE BLOOD CELL COUNT, UNSPECI 04/19/2016 MALOU NORTH RN OBGYN Ot K57.92 DVTRCLI OF INTEST, PART UNSP, W/O PERF O 04/19/2016 MALOU NORTH APRN Ot K57.92 DVTRCLI OF INTEST, PART UNSP, W/O PERF O 04/30/2016 DAPHNIE FORDE, SONA Connolly Ot 574.20 CHOLELITHIASIS NOS 04/30/2016 DAPHNIE FORDE, SONA Connolly Ot 793.89 OTH (ABN) FINDINGS ON RADIOLOGICAL EXAMI 04/30/2016 DAPHNIE FORDE, SONA Connolly Ot V76.12 OTH SCREEN MAMMO-MALIGN NEOPLASM OF NAAT 04/30/2016 DAPHNIE FORDE, SONA Connolly Ot 574.20 CHOLELITHIASIS NOS 04/30/2016 FRANCINE HARDWICK M SUPERCALENDER OPERATOR Ot 611.72 LUMP OR MASS IN BREAST 04/30/2016 MULU FRANCINE M SUPERCALENDER OPERATOR Ot 793.80 UNSPEC ABNORMAL MAMMOGRAM 04/30/2016 Ot 611.72 LUMP OR MASS IN BREAST 04/30/2016 TRANG HARDWICKSA M SUPERCALENDER OPERATOR Ot 562.11 DIVERTICULITIS COLON (W/O MENT OF HEMORR 04/30/2016 FRANCINE HARDWICK M SUPERCALENDER OPERATOR Ot 789.33 ABDOMINAL/PELVIC SWELLING,MASS/ LUMP,RT L 04/30/2016 ALECIA CELESTE DO Ot 573.8 LIVER DISORDERS NEC 04/30/2016 DERREK FORDE, JAYNA Mota Ot V72.84 EXAM PRE-OPERATIVE NOS 04/30/2016 DAPHNIE FORDE, SONA Connolly Ot 610.0 SOLITARY CYST OF BREAST 04/30/2016 DAPHNIE FORDE, SONA Connolly Ot 793.80 UNSPEC ABNORMAL MAMMOGRAM 04/30/2016 ALECIA CELESTE DO S Ot R05 COUGH 04/30/2016 MALOU NORTH RN OBGYN Ot E86.0 DEHYDRATION 04/30/2016 MALOU NORTH RN OBGYN Ot K57.92 DVTRCLI OF INTEST, PART UNSP, W/O PERF O 04/30/2016 MALOU NORTH RN OBGYN Ot R11.0 NAUSEA 04/30/2016 MALOU NORTH RN OBGYN Ot D72.829 ELEVATED WHITE BLOOD CELL COUNT, UNSPECI 04/30/2016 MALOU NORTH RN OBGYN Ot K57.92 DVTRCLI OF INTEST, PART UNSP, W/O PERF O 04/30/2016 MALOU NORTH RN OBGYN Ot K57.92 DVTRCLI OF INTEST, PART UNSP, [...] 574.20 CHOLELITHIASIS NOS 07/01/2016 FRANCINE HARDWICK M SUPERCALENDER OPERATOR Ot 611.72 LUMP OR MASS IN BREAST 07/01/2016 FRANCINE HARDWICK M SUPERCALENDER OPERATOR Ot 793.80 UNSPEC ABNORMAL MAMMOGRAM 07/01/2016 Ot 611.72 LUMP OR MASS IN BREAST 07/01/2016 FRANCINE HARDWICK M SUPERCALENDER OPERATOR Ot 562.11 DIVERTICULITIS COLON (W/O MENT OF HEMORR 07/01/2016 FRANCINE HARDWICK M SUPERCALENDER OPERATOR Ot 789.33 ABDOMINAL/PELVIC SWELLING,MASS/ LUMP,RT L 07/01/2016 ALECIA CELESTE DO S Ot 573.8 LIVER DISORDERS NEC 07/01/2016 DERREK FORDE, JAYNA Mota Ot V72.84 EXAM PRE-OPERATIVE NOS 07/01/2016 SONA ELLER MD Ot 610.0 SOLITARY CYST OF BREAST 07/01/2016 SONA ELLER MD Ot 793.80 UNSPEC ABNORMAL MAMMOGRAM 07/01/2016 ALECIA CELESTE DO S Ot R05 COUGH 07/01/2016 MALOU NORTH RN OBGYN Ot E86.0 DEHYDRATION 07/01/2016 MALOU NORTH APRN Ot K57.92 DVTRCLI OF INTEST, PART UNSP, W/O PERF O 07/01/2016 MALOU NORTH APRN Ot R11.0 NAUSEA 07/01/2016 MALOU NORTH RN OBGYN Ot D72.829 ELEVATED WHITE BLOOD CELL COUNT, UNSPECI 07/01/2016 MALOU NORTH Manoj RN OBGYN Ot K57.92 DVTRCLI OF INTEST, PART UNSP, W/O PERF O 07/01/2016 MALOU NORTH RN OBGYN Ot K57.92 DVTRCLI OF INTEST, PART UNSP, [...] K Ot E11.49 TYPE 2 DIABETES [facility] DIABETIC NEUROLOGI 08/10/2016 BRENDON DO, AMY K Ot I10 ESSENTIAL (PRIMARY) HYPERTENSION 08/10/2016 BRENDON DO, AMY K Ot T81.4XXA INFECTION FOLLOWING A PROCEDURE, INITIAL 08/10/2016 BRENDON DO, AMY K Ot Z79.82 RETIREMENT (CURRENT) USE OF ASPIRIN 08/10/2016 BRENDON DO, AMY K Ot Z79.84 BEEF LUGGER (CURRENT) USE OF ORAL HYPOGLYC 08/10/2016 BRENDON DO, AMY K Ot Z79.899 OTHER BEEF LUGGER (CURRENT) DRUG THERAPY 08/10/2016 BRENDON DO, AMY K Ot Z90.49 ACQUIRED ABSENCE OF OTHER SPECIFIED PART 08/12/2016 BRENDON DO, AMY K Ot E11.49 TYPE 2 DIABETES [facility] DIABETIC NEUROLOGI 08/12/2016 BRENDON DO, AMY K Ot I10 ESSENTIAL (PRIMARY) HYPERTENSION 08/12/2016 BRENDON DO, AMY K Ot T81.4XXA INFECTION FOLLOWING A PROCEDURE, INITIAL 08/12/2016 BRENDON DO, AMY K Ot Z79.82 BEEF LUGGER (CURRENT) USE OF ASPIRIN 08/12/2016 BRENDON DO, AMY K Ot Z79.84 BEEF LUGGER (CURRENT) USE OF ORAL HYPOGLYC 08/12/2016 BRENDON DO, AMY K Ot Z79.899 OTHER RETIREMENT (CURRENT) DRUG THERAPY 08/12/2016 BRENDON BARRETT AMY [...] 18:00 Bacteria identification in wound by culture [id number] NRG QUANTITY OF GROWTH Scant Growth NRG [...] 19:25 Bacteria identification in wound by culture [id number] [facility] FREE TEXT EXTERNAL SENSITIVITY REPORTED AT 1047, 16 NRG QUANTITY OF GROWTH Moderate Growth [facility] Bacterial susceptibility panel - 08/10/16 19:25 Gentamicin [...] Status Pt. Type Provider Facility Loc./Unit Complaint [id number] 10/12/2016 02:01:00 2016 04:46:00 DIS Emergency AMY OLIVAS DO [facility] ER HARD TO BREATH [id number] 08/10/2016 16:28:00 2015 19:45:00 DIS Emergency BRENDON AMY BARRETT [facility] ER INCISION REDNESS/PAIN [id number] 03/22/2016 13:10:00 2015 15:26:00 DIS Emergency TESSY RYDER APRN [facility] ER STOMACH PAIN/NAUSEA/HEADACHE [id number] 12/10/2015 15:36:00 2015 16:02:00 DIS Emergency RYAN VENEGAS MD [facility] ER CHEST CONGESTION/COUGH [id number] 10/24/2015 11:23:00 2015 10:35:00 DIS Inpatient ALECIA CELESTE DO [facility] 4TH DIVERTICULITIS [id number] 05/22/2015 14:05:00 2014 23:59:59 CLS Outpatient SONA ELLER MD [facility] RAD 6 MONTH FOLLOW UP [id number] 03/21/2015 08:01:00 2014 10:55:00 DIS Outpatient JAYNA ANGLIN MD [facility] SDC SCREENING [id number] 03/16/2015 06:41:00 2014 23:59:59 CLS Outpatient JAYNA ANGLIN MD [facility] PREOP SCREENING [id number] 03/13/2015 08:41:00 2014 23:59:59 CLS Outpatient ALECIA CELESTE DO [facility] RAD LIVER LESION [id number] 02/20/2015 09:43:00 2014 23:59:59 CLS Outpatient FRANCINE HARDWICK [facility] RAD PELVIC MASS, RLQ PAIN [id number] 02/19/2015 09:20:00 2014 11:42:00 DIS Emergency BOBYB FORDE, JOHANA Hart [facility] ER VOMITING/DIARRHEA [id number] 02/17/2015 11:13:00 2014 23:59:59 CLS Outpatient FRANCINE HARDWICK SUPERCALENDER OPERATOR [facility] RAD ABDOMINAL PAIN [id number] 04/13/2014 13:33:00 2013 23:59:59 CLS Outpatient FRANCINE HARDWICK SUPERCALENDER OPERATOR [facility] RAD PALPABLE RT BREAST MASS [id number] 10/14/2013 11:58:00 2013 23:59:59 CLS Outpatient SONA ELLER MD [facility] RAD BILLIARY COLIC [id number] 10/06/2013 07:57:00 2013 23:59:59 CLS Outpatient SONA ELLER MD [facility] RAD SCREENING,BILIARY COLIC [id number] 10/07/2016 09:16:00 ACT Outpatient MALOU NORTH RN OBGYN [facility] RAD COUGH,CONGESTION,TOBACOO ABUSE [id number] 07/25/2016 10:13:00 ACT Outpatient EMILY WOODARD DO [facility] LAB UTI [id number] 07/01/2016 14:39:00 ACT Outpatient SONA ELLER MD [facility] RAD SCREENING [id number] 04/05/2016 08:53:00 ACT Outpatient MALOU NORTH RN OBGYN [facility] LAB ACUTE DIVERTICULITIS [id number] 04/03/2016 08:37:00 ACT Outpatient MALOU NORTH RN OBGYN [facility] LAB CBCWD [id number] 04/02/2016 11:17:00 ACT Outpatient MALOU NORTH RN OBGYN [facility] SDC N/V DEHYDRATION [id number] 10/12/2015 14:41:00 ACT Outpatient ALECIA CELESTE DO [facility] RAD COUGH [id number] 01/19/2015 01:29:00 Document Registration [id number] 10/28/2014 08:13:00 Document Registration [id number] 04/15/2012 08:09:00 Document Registration [id number] 07/19/2011 09:46:00 Document Registration [id number] 01/15/2011 12:25:00 Document Registration [id number] 09/14/2010 20:45:00 Document Registration [id number] 08/08/2010 20:09:00 Document Registration [id number] 07/16/2010 08:07:00 Document Registration
[2016-10-14 11:46] LABS: BASOPHILS % (AUTO) 0 % (0-10); EOSINOPHILS % (AUTO) 0 % (0-10); LYMPHOCYTES % (AUTO) 4 % (12-44); MEAN CORPUSCULAR HEMOGLOBIN 29 PG (25-34); MEAN CORPUSCULAR HGB CONC 34 G/DL (32-36); MEAN CORPUSCULAR VOLUME 85 FL (80-99); MEAN PLATELET VOLUME 10.1 FL (7.4-10.4); MONOCYTES # (AUTO) 2.1 X 10^3 (0.0-1.0); MONOCYTES % (AUTO) 8 % (0-12); NEUTROPHILS # (AUTO) 21.4 X 10^3 (1.8-7.8); NEUTROPHILS % (AUTO) 87 % (42-75); PLATELET COUNT 374 10^3/uL (130-400); RED BLOOD COUNT 4.67 10^6/uL (4.35-5.85); RED CELL DISTRIBUTION WIDTH 16.9 % (10.0-14.5); WHITE BLOOD COUNT 24.5 10^3/uL (4.3-11.0)
[2016-10-14 11:56] LABS: ABG BASE EXCESS 0.9 MMOL/L (-2.5-2.5); ABG HCO3 24 MMOL/L (23-27); ABG OXYGEN SATURATION 94 % (94-100); ABG PCO2 36 MMHG (35-45); ABG PH 7.46 (7.37-7.43); ABG PO2 55 MMHG (79-93); ABG TCO2 25.4 MMOL/L (21.0-31.0)
[2016-10-14 11:57] LABS: ALLENS TEST YES-POS; PATIENT TEMP 99.2
[2016-10-14] MEDS ORDERED: RT-ALBUTEROL/IPRATROPIUM 3 ML (DUONEB) VIAL INH ONE (12:00)
[2016-10-14 12:07] LABS: ALANINE AMINOTRANSFERASE 30 U/L (0-55); ALBUMIN 3.9 G/DL (3.2-4.5); ANION GAP 12 MMOL/L (5-14); ASPARTATE AMINO TRANSFERASE 9 U/L (5-34); BILIRUBIN,TOTAL 0.4 MG/DL (0.1-1.0); BLOOD UREA NITROGEN 8 MG/DL (7-18); BUN/CREATININE RATIO 12; CARBON DIOXIDE 25 MMOL/L (21-32); CHLORIDE 101 MMOL/L (98-107); CREATININE SERUM 0.67 MG/DL (0.60-1.30); GFR ESTIMATED > 60; GLUCOSE 112 MG/DL (70-105); POTASSIUM 3.8 MMOL/L (3.6-5.0); SODIUM 138 MMOL/L (135-145); TOTAL PROTEIN 6.9 G/DL (6.4-8.2)
[2016-10-14 12:13] LABS: HYPOCHROMASIA SLIGHT; LYMPHOCYTES % (MANUAL) 3 %; NEUTROPHILS % (MANUAL) 89 %
--- NOTE | 2016-10-14 12:47 | Diagnostic Imaging Report ---
INDICATION: Increased shortness of breath. PA and lateral views of the chest were obtained. Comparison is made with prior examination from 10/13/16. FINDINGS: There is increasing right basilar consolidation and right pleural fluid. There is a new consolidation about the right hilum. Left lung is clear. Heart size is normal. Mediastinum is unremarkable. IMPRESSION: New right perihilar infiltrate as well as increasing right basilar consolidation and right pleural effusion suspect for pneumonia. Dictated by: Dictated on workstation # [id number]
--- NOTE | 2016-10-14 12:50 | ED Respiratory ---
General Chief Complaint: Respiratory Problems Stated Complaint: COUGH/SOA Nursing Triage Note: AMBULATED TO ROOM 07 WITH COMPLAINTS OF INCREASED SOA SINCE BEING SEEN ON FRIDAY. PT WAS RECENTLY DX WITH PNEUMONIA AND PLURECY. Source: patient, old records History of Present Illness Time seen by provider: 11:20 Initial Comments PT ARRIVES VIA POV FROM HOME C/O ONGOING COUGH AND SHORTNESS OF BREATH AND FEVER X 1 1/2 WEEKS HAS ALSO BEEN HAVING RIGHT LOWER CHEST PAIN WELL PT WAS SEEN AT URGENT CARE 10/07 AND 10/11. CXR DONE AND REPORTEDLY NORMAL. WAS DX WITH PLEURISY AND GIVEN RX'S FOR PREDNISONE (TWICE) AND ZITHROMAX, AND TYLENOL #3 ON 10/11 PT CAME TO ER 10/[address] CHEST ANGIOGRAM, READ NO PE, ATELECTASIS RIGHT BASE. RX FOR CEFDINIR, ALBUTEROL INHALER AND HYDROCODONE WERE GIVEN (OVER READ THE NEXT DAY RLL PNEUMONIA) PT CAME BACK TO ER YESTERDAY FOR SAME, PERCOCET ADDED PT HAS NOT ATTEMPTED TO FOLLOW UP WITH HER PCP AT ANY TIME FOR THIS PROBLEM. PT C/O INCREASED SHORTNESS OF BREATH PT HAS CONTINUED TO HAVE SUBJECTIVE FEVERS--HAS NOT CHECKED HER TEMP AT HOME AT ANY TIME. 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 CELESTE Allergies and Home Medications Allergies Coded Allergies: morphine (Verified Allergy, Unknown, ITCHING, 07/10/07) Home Medications Albuterol Sulfate 1 Puff Puff #1 2 PUFF IH Q4H Prescribed by: AYM OLIVAS on 10/12/16 0432 Ascorbic Acid 1,000 Mg Tablet.er 1,000 MG PO DAILY (Reported) Aspirin 81 Mg Tablet.dr 81 MG PO DAILY (Reported) Cefdinir 300 Mg Capsule 10Days 300 MG PO BID (Reported) 10 DAY SUPPLY FILLED 10-12-16 Duloxetine HCl 60 Mg Capsule.dr 60 MG PO DAILY (Reported) Estrogen,Estephania/Me-Testosterone 1 Each Tablet 1 TAB PO DAILY (Reported) Ibuprofen 200 Mg Tablet 400 MG PO Q4H PRN PRN PAIN (Reported) TAKES 2 (200MG) TABLETS Lisinopril 40 Mg Tablet 40 MG PO DAILY (Reported) Metformin HCl 500 Mg Tablet 500 MG PO DAILY (Reported) Multivitamin 1 Each Tablet 1 TAB PO DAILY (Reported) Oxycodone HCl/Acetaminophen 1 Each Tablet #14 1-2 EACH PO Q4H PRN PRN PAIN Prescribed by: DELROY MUELLER on 10/13/16 0629 Prednisone 20 Mg Tab 5Days 20 MG PO BID (Reported) #10 FILLED 10-11-16 Vitamin B Complex 1 Each Capsule 1 CAP PO DAILY (Reported) Vitamin E Acetate 1,000 Unit Capsule 1,000 UNIT PO DAILY (Reported) Constitutional: see HPI fever malaise EENTM: no symptoms reported Respiratory: see HPI cough dyspnea on exertion short of breath Cardiovascular: no symptoms reported chest pain Gastrointestinal: no symptoms reported Genitourinary: no symptoms reported Musculoskeletal: see HPI Skin: no symptoms reported Psychiatric/Neurological: No Symptoms Reported Hematologic/Lymphatic: No Symptoms Reported Past Mnzvufu-Bahkpr-Ukcuki Hx Patient Social History Alcohol Use: Denies Use Recreational Drug Use: No Smoking Status: Current Everyday Smoker (1 PPD) Type Used: Cigarettes Recent Foreign Travel: No Contact w/Someone Who Travel: No Recent Infectious Disease Expo: No Recent Hopitalizations: Yes (07/03/16--COLON RESECTION FOR DIVERTICULITIS--DR. WOODARD/[facility]) Immunizations Up To Date Tetanus Booster (TDap): Less than 5yrs Seasonal Allergies Seasonal Allergies: Yes Surgeries HX Surgeries: Yes (07/03/2016--COLON RESECTION FOR DIVERTICULITIS--DR. 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: Hysterectomy, Menopausal Genitourinary Hx Genitourinary Disorders: No Gastrointestinal Hx Gastrointestinal Disorders: Yes Gastrointestinal Disorders: Diverticulosis Musculoskeletal Hx Musculoskeletal Disorders: No Endocrine Hx Endocrine Disorders: Yes (PRE-DIABETIC) Endocrine Disorders: Diabetes, Non-Insulin dep HEENT HX ENT Disorders: No Loss of Vision: Denies Hearing Impairment: Denies Cancer Hx Cancer: No Psychosocial Hx Psychiatric Problems: Yes Behavioral Health Disorders: Anxiety, Depression Integumentary HX Skin/Integumentary Disorder: No Blood Transfusions Hx Blood Disorders: No Physical Exam Vital Signs Vital Sign - Last 12Hours 10/14/16 11:22 Temp 99.2 Pulse 98 Resp 18 B/P 127/70 Pulse Ox 94 Capillary Refill : Less Than 3 Seconds General Appearance: WD/WN no apparent distress other (ODOR OF CIGARETTES; LOOKS ILL) HEENT: PERRL/EOMI normal ENT inspection TMs normal pharynx normal Neck: non-tender full range of motion supple normal inspection Respiratory: chest non-tender no respiratory distress no accessory muscle use decreased breath sounds (RIGHT BASE) rales (RIGHT BASE) Cardiovascular: normal peripheral pulses regular rate, rhythm no edema no JVD no murmur Gastrointestinal: normal bowel sounds non tender soft no organomegaly Extremities: normal inspection no pedal edema no calf tenderness normal capillary refill Neurologic/Psychiatric: 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 nml as tested no motor/sensory deficits alert normal mood/affect oriented x 3 Skin: normal color warm/dryNo rash Progress/Results/Core Measures Results/Orders Lab Results Laboratory Tests Test 10/14/16 11:35 10/14/16 11:49 Range/Units Alanine Aminotransferase (ALT/SGPT) 30 0-55 U/L Albumin 3.9 3.2-4.5 G/DL Alkaline Phosphatase 57 40-136 U/L Anion Gap 12 5-14 MMOL/L Aspartate Amino Transf (AST/SGOT) 9 5-34 U/L BUN/Creatinine Ratio 12 Basophils # (Auto) 0.0 0.0-0.1 10^3/uL Basophils (%) (Auto) 0 0-10 % Blood Urea Nitrogen 8 7-18 MG/DL Calcium Level 10.0 8.5-10.1 MG/DL Carbon Dioxide Level 25 21-32 MMOL/L Chloride Level 101 98-107 MMOL/L Creatinine 0.67 0.60-1.30 MG/DL Eosinophils # (Auto) 0.0 0.0-0.3 10^3/uL Eosinophils (%) (Auto) 0 0-10 % Estimat Glomerular Filtration Rate > 60 Glucose Level 112 H 70-105 MG/DL Hematocrit 40 35-52 % Hemoglobin 13.4 11.5-16.0 G/DL Hypochromasia SLIGHT Lactic Acid Level 1.4 0.5-2.0 MMOL/L Lymphocytes # (Auto) 1.0 1.0-4.0 X 10^3 Lymphocytes % (Manual) 3 % Lymphocytes (%) (Auto) 4 L 12-44 % Mean Corpuscular Hemoglobin 29 25-34 PG Mean Corpuscular Hemoglobin Concent 34 32-36 G/DL Mean Corpuscular Volume 85 80-99 FL Mean Platelet Volume 10.1 7.4-10.4 FL Monocytes # (Auto) 2.1 H 0.0-1.0 X 10^3 Monocytes % (Manual) 8 % Monocytes (%) (Auto) 8 0-12 % Neutrophils # (Auto) 21.4 H 1.8-7.8 X 10^3 Neutrophils % (Manual) 89 % Neutrophils (%) (Auto) 87 H 42-75 % Platelet Count 374 130-400 10^3/uL Potassium Level 3.8 3.6-5.0 MMOL/L Red Blood Count 4.67 4.35-5.85 10^6/uL Red Cell Distribution Width 16.9 H 10.0-14.5 % Sodium Level 138 135-145 MMOL/L Total Bilirubin 0.4 0.1-1.0 MG/DL Total Protein 6.9 6.4-8.2 G/DL White Blood Count 24.5 H 4.3-11.0 10^3/uL Chilo Test YES-POS Arterial Blood Base Excess 0.9 -2.5-2.5 MMOL/L Arterial Blood HCO3 24 23-27 MMOL/L Arterial Blood Oxygen Saturation 94 94-100 % Arterial Blood Partial Pressure CO2 36 35-45 MMHG Arterial Blood Partial Pressure O2 55 L 79-93 MMHG Arterial Blood Total CO2 25.4 21.0-31.0 MMOL/L Arterial Blood pH 7.46 H 7.37-7.43 Blood Gas Inspired Oxygen ROOM AIR Blood Gas Patient Temperature 99.2 Blood Gas Puncture Site RT RADIAL Blood Gas Ventilator Setting NO Micro Results Microbiology 10/14/16 Influenza Types A,B Antigen (JENNIFER) - Final, Complete My Orders Orders-AMY OLIVAS DO Cbc And Manual Diff (10/14/16 11:21) Comprehensive Metabolic Panel (10/14/16 11:21) Sputum Culture (10/14/16 11:21) Chest Pa/Lat (2 View) (10/14/16 11:21) Monitor-Rhythm Ecg Trace Only (10/14/16 11:21) Arterial Blood Gas (10/14/16 11:21) Lactic Acid Analyzer (10/14/16 11:21) Blood Culture (10/14/16 11:21) Influenza A And B Antigens (10/14/16 11:21) Albuterol/Ipra Inhalation Soln (Duoneb I (10/14/16 12:00) Rt Request For Service (10/14/16 11:57) Svn Sm Volume Nebulizer Rt-Rfs (10/14/16 11:57) Levofloxacin 750 Mg/150 Ml Iv (Levaquin (10/14/16 12:58) Fentanyl Injection (Sublimaze Injection (10/14/16 13:14) Ketorolac Injection (Toradol Injection) (10/14/16 13:14) Medications Given in ED Current Medications Medications Dose Ordered Sig/Paul Route Start Time Stop Time Status Last Admin Dose Admin Albuterol/ Ipratropium 3 ml ONCE ONCE INH 10/14/16 12:00 10/14/16 12:01 DC 10/14/16 12:09 3 ML Vital Signs/I&O Vital Sign - Last 12Hours 10/14/16 10/14/16 11:22 12:12 Temp 99.2 Pulse 98 Resp 18 B/P 127/70 Pulse Ox 94 90 Blood Pressure Mean: 89 Progress Note : Progress Note NO DETERIORATION IN PT'S CONDITION DURING ER STAY Diagnostic Imaging Comments CXR--NEW RIGHT PERIHILAR INFILTRATE, INCREASING RLL INFILTRATE, AND NEW/LARGE RIGHT PLEURAL EFFUSION--PER RADIOLOGIST REPORT. SIGNIFICANT CHANGE FROM XRAYS DONE YESTERDAY Reviewed: Reviewed by Me Departure Communication Progress Notes 1250--SPOKE WITH DR. CELESTE, ACCEPTS PT FOR ADMIT. WOULD LIKE DR. WILLAMS CONSULTED 1300-SPOKE WITH DR. WILLAMS FOR PULMONARY CONSULT. HE ADVISES TO OBTAIN CT OF CHEST, CXR HAS CHANGED SIGNIFICANTLY FROM YESTERDAY Impression Impression: Primary Impression: Right lower lobe pneumonia Additional Impression: UNRSPONSIVE TO OUTPATIENT THERAPY Disposition: ADMITTED INPATIENT Condition: Stable Decision to Admit Reason: Admit from ER (General) Decision to Admit/Date: Oct 14, 2016 Time/Decision to Admit Time: 12:50 Departure-Patient Inst. Referrals: ALECIA CELESTE DO (PCP/Family) Primary Care Physician AMY OLIVAS DO Oct 14, 2016 12:50
[2016-10-14] MEDS ORDERED: LEVOFLOXACIN 750 MG/150 ML IV 150 ML IV STA (12:58)
[2016-10-14] MEDS ORDERED: KETOROLAC 30 MG/ML VIAL IVP STA (13:14)
[2016-10-14] MEDS ORDERED: fentaNYL INJECTION 100 MCG/2 ML AMP IVP STA (13:14)
[2016-10-14] MEDS ORDERED: ACETAMINOPHEN 500 MG TAB (TYLENOL) PO ONE (13:30)
[2016-10-14 13:50] VITALS: BP 120/57
[2016-10-14] MEDS ORDERED: PIPERACILLIN/TAZOBACTAM 4.5 GM/NS 100 ML IV NR ×2 (14:00)
[2016-10-14] MEDS ORDERED: CATHETER FLUSH 10 ML SYR IV PRN ×2 (14:15→15:45)
--- NOTE | 2016-10-14 14:31 | History & Physicial ---
History of Present Illness History of Present Illness Reason for visit/HPI This is a 55 year old female who had been seen twice in the urgent care over the past week for pneumonia and had been seen 3 days in a row for pneumonia in the emergency room due to worsening pain in her right chest. Her CXR looked much worse compared to yesterdays and her WBC count was also increased. It was decided she should be admitted for failed outpatient treatment as well as pulmonary consult due to significant pleural effusion or parapneumonic effusion in her right lung. Date of Admission Oct 14, 2016 at 1:19 pm I consulted on this patient on 10/14/16 14:25 Attending Physician Alecia Banks DO Admitting Physician Alecia Banks DO Consult Allergies and Home Medications Allergies Coded Allergies: morphine (Verified Allergy, Unknown, ITCHING, 07/10/07) Home Medications Unknown Dose PO DAILY (Reported) Albuterol Sulfate 1 Puff Puff #1 2 PUFF IH Q4H Prescribed by: AMY OLIVAS on 10/12/16 0432 Ascorbic Acid 1,000 Mg Tablet.er 1,000 MG PO DAILY (Reported) Aspirin 81 Mg Tablet.dr 81 MG PO DAILY (Reported) Cefdinir 300 Mg Capsule #20 300 MG PO BID Prescribed by: AMY OLIVAS on 10/12/16 0432 Duloxetine HCl 60 Mg Capsule.dr 60 MG PO DAILY (Reported) Hydrocodone/Ibuprofen 1 Each Tablet #20 1-2 EACH PO Q4H Prescribed by: AMY OLIVAS on 10/12/16 0432 Lisinopril 40 Mg Tablet 40 MG PO DAILY (Reported) Metformin HCl 500 Mg Tablet 500 MG PO DAILY (Reported) Multivitamin 1 Each Tablet 1 EACH PO DAILY (Reported) Oxycodone HCl/Acetaminophen 1 Each Tablet #14 1-2 EACH PO Q4H PRN PRN PAIN Prescribed by: DELROY MUELLER on 10/13/16 0629 Vitamin B Complex 1 Each Capsule 1 EACH PO DAILY (Reported) Vitamin E Acetate 1,000 Unit Capsule 1,000 UNIT PO DAILY (Reported) Past Oqsawcq-Pafjfy-Gtsdel Hx Patient Social History Alcohol Use: Denies Use Recreational Drug Use: No Smoking Status: Current Everyday Smoker (1 PPD) Type Used: Cigarettes Recent Foreign Travel: No Contact w/other who traveled: No Recent Hopitalizations: Yes (07/03/16--COLON RESECTION FOR DIVERTICULITIS--DR. WOODARD[facility]) Recent Infectious Disease Expo: No Immunizations Up To Date Tetanus Booster (TDap): Less than 5yrs Seasonal Allergies Seasonal Allergies: Yes Surgeries HX Surgeries: Yes (07/03/2016--COLON RESECTION FOR DIVERTICULITIS--DR. WOODARD AT [facility]; HYST/BSO FOR BENIGN DISEASE; FOOT SURGERY) Surgeries: Abdominal, Appendectomy, Bowel Surgery, Section, Hysterectomy, Oophorectomy, Orthopedic Respiratory Hx Respiratory Disorders: Yes Cardiovascular Hx Cardiovascular Disorders: Yes Cardiac Disorders: Hypertension Neurological Hx Neurological Disorders: No Reproductive System Hx Reproductive Disorders: No Sexually Transmitted Disease: No HIV/AIDS: No Genitourinary Hx Genitourinary Disorders: No Gastrointestinal Hx Gastrointestinal Disorders: Yes Gastrointestinal Disorders: Diverticulosis Musculoskeletal Hx Musculoskeletal Disorders: No Endocrine Hx Endocrine Disorders: Yes (PRE-DIABETIC) Endocrine Disorders: Diabetes, Non-Insulin dep HEENT HX ENT Disorders: No Loss of Vision: Denies Hearing Impairment: Denies Cancer Hx Cancer: No Psychosocial Hx Psychiatric Problems: Yes Behavioral Health Disorders: Anxiety, Depression Integumentary HX Skin/Integumentary Disorder: No Blood Transfusions Hx Blood Disorders: No Constitutional: fever weakness EENTM: nose congestion Respiratory: cough short of breath Cardiovascular: chest pain (right) Gastrointestinal: No RUQ, No LUQ, No RLQ, No LLQ, No no symptoms reported, No see HPI, No abdominal pain, No constipation, No diarrhea, No dysphagia, No hematemesis, No heartburn, No jaundice, No loss of appetite, No melena, No nausea, No vomiting, No other Genitourinary: No no symptoms reported, No see HPI, No decreased output, No discharge, No dysuria, No frequency, No hematuria, No hesitancy, No incontinence , No nocturia, No pain, No other Musculoskeletal: back pain Skin: No no symptoms reported, No see HPI, No change in color, No change in hair/nails, No dryness, No hx of skin cancer, No lesions, No lumps, No pruritus , No rash, No other Psychiatric/Neurological: Weakness Physical Exam Vital Signs Vital Sign - Last 12Hours 10/14/16 10/14/16 11:22 13:38 Temp 99.2 Pulse 98 Resp 18 B/P 127/70 Pulse Ox 94 O2 Flow Rate 2 Capillary Refill : Less Than 3 Seconds General Appearance: No Apparent Distress HEENT: Pharynx Normal Neck: Supple Respiratory: Crackles (left base and scattered in right lung) Decreased Breath Sounds (right) Cardiovascular: Regular Rate, Rhythm Gallop/S4 Gastrointestinal: Normal Bowel Sounds Non Tender Soft Rectal: Deferred Back: No CVA Tenderness Extremity: Non Tender No Calf Tenderness No Pedal Edema Neurologic/Psychiatric: Alert Oriented x3 Skin: Normal Color Warm/Dry Comments Laboratory Tests 10/14/16 11:35: Alanine Aminotransferase (ALT/SGPT) 30, Albumin 3.9, Alkaline Phosphatase 57, Anion Gap 12, Aspartate Amino Transf (AST/SGOT) 9, BUN/Creatinine Ratio 12, Basophils # (Auto) 0.0, Basophils (%) (Auto) 0, Blood Urea Nitrogen 8, Calcium Level 10.0, Carbon Dioxide Level 25, Chloride Level 101, Creatinine 0.67, Eosinophils # (Auto) 0.0, Eosinophils (%) (Auto) 0, Estimat Glomerular Filtration Rate > 60, Glucose Level 112H, Hematocrit 40, Hemoglobin 13.4, Hypochromasia SLIGHT, Lactic Acid Level 1.4, Lymphocytes # (Auto) 1.0, Lymphocytes % (Manual) 3, Lymphocytes (%) (Auto) 4L, Mean Corpuscular Hemoglobin 29, Mean Corpuscular Hemoglobin Concent 34, Mean Corpuscular Volume 85, Mean Platelet Volume 10.1, Monocytes # (Auto) 2.1H, Monocytes % (Manual) 8, Monocytes (%) (Auto) 8, Neutrophils # (Auto) 21.4H, Neutrophils % (Manual) 89, Neutrophils (%) (Auto) 87H, Platelet Count 374, Potassium Level 3.8, Red Blood Count 4.67, Red Cell Distribution Width 16.9H, Sodium Level 138, Total Bilirubin 0.4, Total Protein 6.9, White Blood Count 24.5H 10/14/16 11:49: Chilo Test YES-POS, Arterial Blood Base Excess 0.9, Arterial Blood HCO3 24, Arterial Blood Oxygen Saturation 94, Arterial Blood Partial Pressure CO2 36, Arterial Blood Partial Pressure O2 55L, Arterial Blood Total CO2 25.4, Arterial Blood pH 7.46H, Blood Gas Inspired Oxygen ROOM AIR, Blood Gas Patient Temperature 99.2, Blood Gas Puncture Site RT RADIAL, Blood Gas Ventilator Setting NO Microbiology 10/14/16 Influenza Types A,B Antigen (JENNIFER) - Final, Complete Assessment/Plan Assessment and Plan 1. Right sided pneumonia with pleural effusion--admit and start triple abx therapy and consult pulmonology, oxygen, SVNs, smoking cessation discussed 2. Right Chest Pain--pain control 3. Hypertension--resume home medications ALECIA BANKS DO Oct 14, 2016 2:31 pm
[2016-10-14] MEDS: 1/2 NS IV SOLUTION 1,000 ML IV SCH (14:36)
[2016-10-14] MEDS ORDERED: VANCOMYCIN 1,750 MG/NS 500 ML IVPB IV NR ×2 (14:36)
[2016-10-14] MEDS: NICOTINE 21 MG (NICODERM) PATCH TD SCH (14:37)
[2016-10-14] MEDS ORDERED: ESTR1TAB37 PO (14:38)
[2016-10-14] MEDS ORDERED: CEFD300C3 PO (14:44)
[2016-10-14] MEDS ORDERED: FLU TRIvalent (5 YOA+) 2016-17 (AFLURIA) 0.5 ML IM ONE (14:45)
[2016-10-14] MEDS ORDERED: PRD20T PO (14:54)
[2016-10-14] MEDS ORDERED: IBUP-30 PO (14:55)
[2016-10-14] MEDS ORDERED: IOHEXOL 350 MG/ML 100 ML (OMNIPAQUE 350) VIAL IV ONE (15:45)
[2016-10-14] MEDS ORDERED: NS 100 ML (IVPB) BAG IV ONE (15:45)
[2016-10-14] MEDS: fentaNYL INJECTION 100 MCG/2 ML AMP IV PRN ×3 (16:04→23:21)
[2016-10-14 16:59] VITALS: BP 111/56
[2016-10-14] MEDS ORDERED: RT-ALBUTEROL SULF 2.5 MG/3 ML PRE-MIX VIAL INH PRN (17:00)
--- NOTE | 2016-10-14 17:12 | Diagnostic Imaging Report ---
PROCEDURE: CT chest with contrast only. TECHNIQUE: Multiple contiguous axial images were obtained through the chest after administration of intravenous contrast. INDICATION: Shortness of air. Recent diagnosis of pneumonia and pleurisy. COMPARISON: 10/12/2016. FINDINGS: Since the previous exam, there has been interval development of large right-sided pleural effusion. There is expected atelectasis of the right middle and lower lobes. Diminished enhancement of the base of the right lower lobe is noted and is likely on the basis of patient's known underlying pneumonia. No large effusion is seen on the left. There is no pneumothorax on either side. There is some mild scattered air trapping. Cardiomediastinal structures show normal heart size. There is no large pericardial effusion. No pathologically enlarged or morphologically abnormal adenopathy is seen within the mediastinum, louise, nor axillae. Bony structures show no acute abnormalities. Included portions of the upper abdomen are unremarkable. IMPRESSION: 1. Interval development of large right-sided pleural effusion. 2. Underlying infiltrate and atelectasis of the right lung. Dictated by: Dictated on workstation # [id number]
[2016-10-14] MEDS: RT-ALBUTEROL SULF 2.5 MG/3 ML PRE-MIX VIAL INH SCH (19:45)
[2016-10-14 20:00] VITALS: BP 116/54
[2016-10-14] MEDS: KETOROLAC 30 MG/ML VIAL IV PRN (20:02)
[2016-10-14] MEDS: PIPERACILLIN/TAZOBACTAM 4.5 GM/NS 100 ML IVPB IV SCH ×2 (21:13)
[2016-10-15] VITALS: BP 145/67
[2016-10-15] MEDS: 1/2 NS IV SOLUTION 1,000 ML IV SCH ×3 (00:15→20:15)
[2016-10-15] MEDS: ACETAMINOPHEN 500 MG TAB (TYLENOL) PO PRN ×3 (00:17→17:39)
[2016-10-15] MEDS ORDERED: VANCOMYCIN 1250 MG/NS 250 ML IVPB IV SCH ×2 (03:00)
[2016-10-15] MEDS: KETOROLAC 30 MG/ML VIAL IV PRN ×3 (04:10→20:20)
[2016-10-15 04:25] VITALS: BP 143/73
[2016-10-15] MEDS: PIPERACILLIN/TAZOBACTAM 4.5 GM/NS 100 ML IVPB IV SCH ×6 (04:54→20:16)
[2016-10-15 06:30] LABS: BASOPHILS % (AUTO) 0 % (0-10); EOSINOPHILS # (AUTO) 0.3 10^3/uL (0.0-0.3); EOSINOPHILS % (AUTO) 2 % (0-10); LYMPHOCYTES # (AUTO) 1.5 X 10^3 (1.0-4.0); LYMPHOCYTES % (AUTO) 9 % (12-44); MEAN CORPUSCULAR HEMOGLOBIN 28 PG (25-34); MEAN CORPUSCULAR HGB CONC 33 G/DL (32-36); MEAN CORPUSCULAR VOLUME 85 FL (80-99); MONOCYTES # (AUTO) 1.5 X 10^3 (0.0-1.0); MONOCYTES % (AUTO) 9 % (0-12); NEUTROPHILS # (AUTO) 13.2 X 10^3 (1.8-7.8); NEUTROPHILS % (AUTO) 80 % (42-75); PLATELET COUNT 385 10^3/uL (130-400); RED BLOOD COUNT 4.44 10^6/uL (4.35-5.85); RED CELL DISTRIBUTION WIDTH 16.9 % (10.0-14.5); WHITE BLOOD COUNT 16.5 10^3/uL (4.3-11.0)
[2016-10-15] MEDS: RT-ALBUTEROL SULF 2.5 MG/3 ML PRE-MIX VIAL INH SCH ×4 (06:44→19:55)
[2016-10-15 07:02] LABS: ALANINE AMINOTRANSFERASE 61 U/L (0-55); ALBUMIN 3.2 G/DL (3.2-4.5); ANION GAP 11 MMOL/L (5-14); ASPARTATE AMINO TRANSFERASE 35 U/L (5-34); BILIRUBIN,TOTAL 0.5 MG/DL (0.1-1.0); BLOOD UREA NITROGEN 7 MG/DL (7-18); BUN/CREATININE RATIO 10; CALCIUM 9.3 MG/DL (8.5-10.1); CARBON DIOXIDE 24 MMOL/L (21-32); CHLORIDE 107 MMOL/L (98-107); CREATININE SERUM 0.69 MG/DL (0.60-1.30); GFR ESTIMATED > 60; GLUCOSE 91 MG/DL (70-105); POTASSIUM 3.5 MMOL/L (3.6-5.0); SODIUM 142 MMOL/L (135-145); TOTAL PROTEIN 6.1 G/DL (6.4-8.2)
[2016-10-15 08:00] VITALS: BP 132/61
[2016-10-15] MEDS: fentaNYL INJECTION 100 MCG/2 ML AMP IV PRN ×5 (08:21→17:39)
[2016-10-15] MEDS: NICOTINE 21 MG (NICODERM) PATCH TD SCH (08:24)
[2016-10-15] MEDS: NICOTINE PATCH REMOVAL TP SCH (08:24)
--- NOTE | 2016-10-15 09:06 | Pulmonary Consultation ---
FLAVIA AYALA APRN 10/15/16 0906: History of Present Illness History of Present Illness Date of Consultation 10/15/16 09:00 Date of Admission History of Present Illness This is a 55 year old female who had been seen twice in the urgent care over the past week for pneumonia and had been seen 3 days in a row for pneumonia in the emergency room due to worsening pain in her right chest. Her CXR looked much worse compared to yesterdays and her WBC count was also increased. Pt does not wear oxygen at home. She reports she is a smoker. Sx started two weeks ago at home and with and shortness of breath and pain has been worsening over last 3 days. Pulmonary has been consulted due to significant pleural effusion or parapneumonic effusion in her right lung. Allergies and Home Medications Allergies Coded Allergies: morphine (Verified Allergy, Unknown, ITCHING, 07/10/07) Home Medications Albuterol Sulfate 1 Puff Puff #1 2 PUFF IH Q4H Prescribed by: AMY OLIVAS on 10/12/16 0432 Ascorbic Acid 1,000 Mg Tablet.er 1,000 MG PO DAILY (Reported) Aspirin 81 Mg Tablet.dr 81 MG PO DAILY (Reported) Cefdinir 300 Mg Capsule 10Days 300 MG PO BID (Reported) 10 DAY SUPPLY FILLED 10-12-16 Duloxetine HCl 60 Mg Capsule.dr 60 MG PO DAILY (Reported) Estrogen,Estephania/Me-Testosterone 1 Each Tablet 1 TAB PO DAILY (Reported) Ibuprofen 200 Mg Tablet 400 MG PO Q4H PRN PRN PAIN (Reported) TAKES 2 (200MG) TABLETS Lisinopril 40 Mg Tablet 40 MG PO DAILY (Reported) Metformin HCl 500 Mg Tablet 500 MG PO DAILY (Reported) Multivitamin 1 Each Tablet 1 TAB PO DAILY (Reported) Oxycodone HCl/Acetaminophen 1 Each Tablet #14 1-2 EACH PO Q4H PRN PRN PAIN Prescribed by: DELROY MUELLER on 10/13/16 0629 Prednisone 20 Mg Tab 5Days 20 MG PO BID (Reported) #10 FILLED 10-11-16 Vitamin B Complex 1 Each Capsule 1 CAP PO DAILY (Reported) Vitamin E Acetate 1,000 Unit Capsule 1,000 UNIT PO DAILY (Reported) Past Aupqmrl-Tkapuy-Sndipt Hx Patient Social History Alcohol Use: Denies Use Recreational Drug Use: No Smoking Status: Current Everyday Smoker Type Used: Cigarettes Recent Foreign Travel: No Contact w/Someone Who Travel: No Recent Infectious Disease Expo: No Recent Hopitalizations: Yes (07/03/16--COLON RESECTION FOR DIVERTICULITIS--DR. WOODARD/[facility]) Physical Abuse Screen: No Sexual Abuse: No Immunizations Up To Date Tetanus Booster (TDap): Less than 5yrs Seasonal Allergies Seasonal Allergies: Yes Surgeries HX Surgeries: Yes (07/03/2016--COLON RESECTION FOR DIVERTICULITIS--DR. 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 Genitourinary Hx Genitourinary Disorders: No Gastrointestinal Hx Gastrointestinal Disorders: Yes Gastrointestinal Disorders: Diverticulosis Musculoskeletal Hx Musculoskeletal Disorders: No Endocrine Hx Endocrine Disorders: Yes (PRE-DIABETIC) Endocrine Disorders: Diabetes, Non-Insulin dep HEENT HX ENT Disorders: No Loss of Vision: Denies Hearing Impairment: Denies Cancer Hx Cancer: No Psychosocial Hx Psychiatric Problems: Yes Behavioral Health Disorders: Anxiety, Depression Integumentary HX Skin/Integumentary Disorder: No Blood Transfusions Hx Blood Disorders: No Adverse Reaction to a Blood Tr: No Exam Exam Vital Signs Date Time Temp Pulse Resp B/P Pulse Ox O2 Delivery O2 Flow Rate FiO2 10/15/16 07:00 83 10/15/16 06:45 96 3.00 10/15/16 04:25 98.8 86 17 143/73 97 Nasal Cannula 3.00 10/15/16 01:00 100.5 10/15/16 01:00 91 10/15/16 01:00 100.5 10/15/16 00:17 102.3 10/15/16 00:00 102.3 97 18 145/67 94 Nasal Cannula 2.00 10/14/16 20:00 98.7 88 20 116/54 96 Nasal Cannula 3.00 10/14/16 19:55 Nasal Cannula 2.00 10/14/16 19:52 91 10/14/16 19:45 95 3.00 10/14/16 16:59 99.1 82 18 111/56 95 Nasal Cannula 3.00 10/14/16 16:45 94 2.00 10/14/16 16:36 94 10/14/16 14:57 Nasal Cannula 2.00 10/14/16 13:50 99.7 86 16 120/57 91 10/14/16 13:38 101.2 95 18 96 2 10/14/16 12:12 90 10/14/16 11:22 99.2 98 18 127/70 94 I & O 10/15/16 07:00 Intake Total 1822 ml Output Total 3200 ml Balance -1378 ml General Appearance: No Apparent Distress WD/WN HEENT: PERRL/EOMI Normal ENT Inspection Pharynx Normal Neck: Full Range of Motion Normal Inspection Non Tender Supple Respiratory: No Accessory Muscle Use No Respiratory Distress Crackles (left base and scattered in right lung) Decreased Breath Sounds (right) Expiration Cardiovascular: Regular Rate, Rhythm Gallop/S4 Capillary Refill: Less Than 3 Seconds Gastrointestinal: normal bowel sounds non tender soft Extremity: Normal Capillary Refill Normal Inspection Normal Range of Motion Non Tender No Calf Tenderness No Pedal Edema Neurologic/Psychiatric: Alert Oriented x3 No Motor/Sensory Deficits 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 Chowdhury will do thoracentisis this a.m. patient is agreeable and consent has been signed. - continue abx therapy -oxygen - SVNs, HUSAM- -pt has home cpap does not have it with her tobacco use- -discussed smoking cessation Right Chest Pain--pain control Clinical Quality Measures DVT/VTE Risk/Contraindication: Risk Factor Score Per Nursin RFS Level Per Nursing on Admit: 3=High JORGE CHOWDHURY DO 10/15/16 1342: History of Present Illness History of Present Illness History of Present Illness 55yo who was treated as out patient for pneumonia she is presenting after persistent worsening of SOB and chest tightness. Her CXR is looking worse compared with previous xray and she now appears septic. Pt is a current smoker. Allergies and Home Medications Allergies Coded Allergies: morphine (Verified Allergy, Unknown, ITCHING, 07/10/07) Home Medications Albuterol Sulfate 1 Puff Puff #1 2 PUFF IH Q4H Prescribed by: AMY OLIVAS on 10/12/16 0432 Ascorbic Acid 1,000 Mg Tablet.er 1,000 MG PO DAILY (Reported) Aspirin 81 Mg Tablet.dr 81 MG PO DAILY (Reported) Cefdinir 300 Mg Capsule 10Days 300 MG PO BID (Reported) 10 DAY SUPPLY FILLED 10-12-16 Duloxetine HCl 60 Mg Capsule.dr 60 MG PO DAILY (Reported) Estrogen,Estephania/Me-Testosterone 1 Each Tablet 1 TAB PO DAILY (Reported) Ibuprofen 200 Mg Tablet 400 MG PO Q4H PRN PRN PAIN (Reported) TAKES 2 (200MG) TABLETS Lisinopril 40 Mg Tablet 40 MG PO DAILY (Reported) Metformin HCl 500 Mg Tablet 500 MG PO DAILY (Reported) Multivitamin 1 Each Tablet 1 TAB PO DAILY (Reported) Oxycodone HCl/Acetaminophen 1 Each Tablet #14 1-2 EACH PO Q4H PRN PRN PAIN Prescribed by: DELROY MUELLER on 10/13/16 0629 Prednisone 20 Mg Tab 5Days 20 MG PO BID (Reported) #10 FILLED 10-11-16 Vitamin B Complex 1 Each Capsule 1 CAP PO DAILY (Reported) Vitamin E Acetate 1,000 Unit Capsule 1,000 UNIT PO DAILY (Reported) Review of Systems Constitutional: : Chills: Fever: Malaise: Sweats: Weakness Respiratory: : Cough: SOB with excertion: Shortness of breath: Wheezing Cardiovascular: No: Chest Pain, Edema, Lt Headedness, Orthopnea, Other, Palpitations, Paroxysmal Noc. Dyspnea Gastrointestinal: No: Abdominal Pain, Constipation, Diarrhea, Hematochezia, Melena, Nausea, Other, Vomiting Neurological: : Weakness Exam Exam General Appearance: No Apparent Distress WD/WN HEENT: PERRL/EOMI Normal ENT Inspection Pharynx Normal Neck: Full Range of Motion Normal Inspection Non Tender Supple Respiratory: No Accessory Muscle Use No Respiratory Distress Crackles (left base and scattered in right lung) Decreased Breath Sounds (right) Expiration Gastrointestinal: normal bowel sounds non tender soft Extremity: Normal Capillary Refill Neurologic/Psychiatric: Alert Assessment/Plan Assessment/Plan Right pneumonia with probable empyema s/p attempted thoracentesis at bedside. - No fluid obtained -Pt have radiology attempt chest tube -Pt will probably have to be transferred to [place] for VATS and decortication I did see and evaluate patient with [facility]. FLAVIA AYALA APRN Oct 15, 2016 09:06 JORGE CHOWDHURY DO Oct 15, 2016 13:42
[2016-10-15] MEDS: LEVOFLOXACIN 750 MG/D5W 150 ML PRE-MIX IV SCH (09:52)
[2016-10-15 12:00] VITALS: BP 138/63
[2016-10-15] MEDS ORDERED: LIDOCAINE 1% INJ 20 ML (XYLOCAINE) VIAL ONE ×2 (13:53→14:49)
[2016-10-15 13:59] LABS: INR 1.3 (0.8-1.4); PROTHROMBIN TIME PATIENT 15.4 SEC (12.2-14.7)
[2016-10-15] MEDS ORDERED: TROUGH ORDER-PHARMACY XX NR (14:00)
--- NOTE | 2016-10-15 15:46 | Diagnostic Imaging Report ---
CT-guided aspiration, right thorax. INDICATION: Right pleural effusion. The CT chest exam performed on 10/14/2016, noted a large right-sided pleural effusion. Following aseptic preparation of the skin and administration of local anesthesia an 8-F catheter was advanced into the pleural space using CT guidance. Approximately 15 cc of thin serous fluid was retrieved. The fluid was sent to the lab for culture and sensitivity analysis. The drainage catheter was subsequently secured, and suction was applied. The patient tolerated the procedure well. IMPRESSION: There has been successful CT-guided placement of a drainage catheter in the pleural space on the right. The small amount of fluid retrieved from the aspiration would suggest that the remaining density in the extrapleural space may be quite viscous. A followup exam would be recommended for further study. These results will be discussed with Dr. Chowdhury. Dictated by: Dictated on workstation # [id number]
[2016-10-15 16:00] VITALS: BP 122/57
[2016-10-15 16:30] LABS: GLUCOSE,BODY FLUID 17 MG/DL
[2016-10-15] MEDS: VANCOMYCIN 1500 MG/NS 500 ML IVPB IV SCH ×2 (16:30)
[2016-10-15] MEDS ORDERED: ONDANSETRON 4 MG/2 ML (SDV) Z0FRAN IVP PRN (17:45)
--- NOTE | 2016-10-15 19:11 | Progress Note (SOAP) ---
Subjective Subjective/Events-last exam Fwup right sided pneumonia with large pleural effusion. C/O ongoing right sided chest pain. Objective Exam Vital Signs Date Time Temp Pulse Resp B/P Pulse Ox O2 Delivery O2 Flow Rate FiO2 10/15/16 17:39 101.0 10/15/16 16:00 98.1 82 20 122/57 98 Nasal Cannula 3.00 10/15/16 15:22 98 3.00 10/15/16 13:00 90 10/15/16 12:00 99.3 88 20 138/63 94 Nasal Cannula 3.00 10/15/16 10:07 98 3.00 10/15/16 08:00 Nasal Cannula 2.00 10/15/16 08:00 99.4 83 20 132/61 94 Nasal Cannula 3.00 10/15/16 07:00 83 10/15/16 06:45 96 3.00 10/15/16 04:25 98.8 86 17 143/73 97 Nasal Cannula 3.00 10/15/16 01:00 100.5 10/15/16 01:00 91 10/15/16 01:00 100.5 10/15/16 00:17 102.3 10/15/16 00:00 102.3 97 18 145/67 94 Nasal Cannula 2.00 10/14/16 20:00 98.7 88 20 116/54 96 Nasal Cannula 3.00 10/14/16 19:55 Nasal Cannula 2.00 10/14/16 19:52 91 10/14/16 19:45 95 3.00 I & O 10/15/16 07:00 Intake Total 1822 ml Output Total 3200 ml Balance -1378 ml Capillary Refill : Less Than 3 Seconds General Appearance: Mild Distress Respiratory: Decreased Breath Sounds (right with crackles) Cardiovascular: Regular Rate, Rhythm Systolic Murmur Gastrointestinal: normal bowel sounds non tender soft Extremity: Non Tender No Calf Tenderness No Pedal Edema Results Lab Bad table Assessment/Plan Assessment/Plan Assess & Plan/Chief Complaint 1. Right sided pneumonia with pleural effusion--continue abx and thoracentesis by pulmonology today 2. Right sided chest pain--pain control 3. Tobacco Abuse--smoking cessation Diagnosis/Problems: Clinical Quality Measures DVT/VTE Risk/Contraindication: Risk Factor Score Per Nursin RFS Level Per Nursing on Admit: 3=High ALECIA CELESTE DO Oct 15, 2016 7:11 pm
[2016-10-15 19:54] VITALS: BP 135/76
[2016-10-16 00:45] VITALS: BP 133/74
[2016-10-16] MEDS: fentaNYL INJECTION 100 MCG/2 ML AMP IV PRN ×4 (00:49→08:55)
[2016-10-16] MEDS: 1/2 NS IV SOLUTION 1,000 ML IV SCH (02:02)
[2016-10-16] MEDS: VANCOMYCIN 1500 MG/NS 500 ML IVPB IV SCH ×2 (03:11)
[2016-10-16] MEDS: PIPERACILLIN/TAZOBACTAM 4.5 GM/NS 100 ML IVPB IV SCH ×2 (04:20)
[2016-10-16 04:35] VITALS: BP 135/73
[2016-10-16] MEDS: ACETAMINOPHEN 500 MG TAB (TYLENOL) PO PRN (05:00)
[2016-10-16 05:19] LABS: BASOPHILS % (AUTO) 0 % (0-10); EOSINOPHILS # (AUTO) 0.2 10^3/uL (0.0-0.3); EOSINOPHILS % (AUTO) 2 % (0-10); LYMPHOCYTES # (AUTO) 0.9 X 10^3 (1.0-4.0); LYMPHOCYTES % (AUTO) 7 % (12-44); MEAN CORPUSCULAR HEMOGLOBIN 28 PG (25-34); MEAN CORPUSCULAR HGB CONC 34 G/DL (32-36); MEAN CORPUSCULAR VOLUME 85 FL (80-99); MEAN PLATELET VOLUME 9.9 FL (7.4-10.4); MONOCYTES # (AUTO) 1.3 X 10^3 (0.0-1.0); MONOCYTES % (AUTO) 11 % (0-12); NEUTROPHILS # (AUTO) 10.1 X 10^3 (1.8-7.8); NEUTROPHILS % (AUTO) 80 % (42-75); PLATELET COUNT 337 10^3/uL (130-400); RED BLOOD COUNT 4.13 10^6/uL (4.35-5.85); RED CELL DISTRIBUTION WIDTH 17.1 % (10.0-14.5); WHITE BLOOD COUNT 12.6 10^3/uL (4.3-11.0)
[2016-10-16] MEDS: RT-ALBUTEROL SULF 2.5 MG/3 ML PRE-MIX VIAL INH SCH ×2 (07:18→10:37)
[2016-10-16 08:25] VITALS: BP 97/58
[2016-10-16] MEDS: NICOTINE 21 MG (NICODERM) PATCH TD SCH (08:55)
[2016-10-16] MEDS: LEVOFLOXACIN 750 MG/D5W 150 ML PRE-MIX IV SCH (08:55)
[2016-10-16] MEDS: NICOTINE PATCH REMOVAL TP SCH (08:55)
--- NOTE | 2016-10-16 08:58 | Diagnostic Imaging Report ---
EXAMINATION: Portable erect AP chest at 0732 hours. INDICATION: Respiratory distress. FINDINGS: The previous chest exam of 10/14/2016 noted a new perihilar infiltrate about the right hilum. There also appeared to be increasing consolidation in the right lung base and a greater amount of fluid in the right lung than noted on the prior exam of 10/13/2016. The patient did undergo a CT guided pleural catheter placement on the right yesterday. The catheter is again evident on this study and seems to be in good position; however, the amount of fluid is essentially no different. The density about the right hilum and the right lung base is unchanged as well. There is a small collection of gas overlying the right midlung. This is probably gas in the pleural space related to the introduction of the catheter. There is no sign of a pneumothorax. The left lung is generally clear. The heart is stable. The mediastinum is not widened. The osseous structures are intact. IMPRESSION: 1. Aside from the insertion of the pleural drainage catheter on the right, there has been no significant change since the prior exam. No new abnormality has developed. 2. These results were discussed with Dr. Bert Chowdhury. Dictated by: Dictated on workstation # [id number]
--- NOTE | 2016-10-16 09:01 | Pulmonary Progress Note ---
Subjective Subjective/Events-last exam Pt only had 100cc of pleural fluid drain from catheter last night. Exam Exam Vital Signs Date Time Temp Pulse Resp B/P Pulse Ox O2 Delivery O2 Flow Rate FiO2 10/16/16 08:41 97.4 10/16/16 07:18 93 3.00 10/16/16 05:00 100.5 10/16/16 04:35 100.8 92 20 135/73 95 Nasal Cannula 3.00 10/16/16 01:00 78 10/16/16 00:45 99.0 77 20 133/74 98 Room Air 10/15/16 19:55 96 Nasal Cannula 3.00 10/15/16 19:54 96 3.00 10/15/16 19:54 99.5 82 19 135/76 96 Nasal Cannula 3.00 10/15/16 19:00 83 10/15/16 17:39 101.0 10/15/16 16:00 98.1 82 20 122/57 98 Nasal Cannula 3.00 10/15/16 15:22 98 3.00 10/15/16 13:00 90 10/15/16 12:00 99.3 88 20 138/63 94 Nasal Cannula 3.00 10/15/16 10:07 98 3.00 I & O 10/16/16 07:00 Intake Total 4585 ml Output Total 3200 ml Balance 1385 ml General Appearance: Mild Distress HEENT: PERRL/EOMI Normal ENT Inspection Pharynx Normal Neck: Full Range of Motion Normal Inspection Non Tender Supple Respiratory: Decreased Breath Sounds (right with crackles) Cardiovascular: Regular Rate, Rhythm Systolic Murmur Capillary Refill: Less Than 3 Seconds Gastrointestinal: normal bowel sounds non tender soft Extremity: Non Tender No Calf Tenderness No Pedal Edema Neurologic/Psychiatric: Alert Skin: Normal Color Warm/Dry Results Lab Laboratory Tests 10/14/16 11:35 10/15/16 06:15 10/16/16 04:59 Assessment/Plan Assessment/Plan Right sided pneumonia with emphyema s/p pig tail catheter - Pt needs decortication. -- Will transfer to [place] for surgery. - continue abx therapy -oxygen - SVNs, HUSAM- -pt has home cpap does not have it with her tobacco use- -discussed smoking cessation Right Chest Pain--pain control Clinical Quality Measures DVT/VTE Risk/Contraindication: Risk Factor Score Per Nursin RFS Level Per Nursing on Admit: 3=High JORGE WILLAMS DO Oct 16, 2016 09:00
[2016-10-16] MEDS: KETOROLAC 30 MG/ML VIAL IV PRN (10:45)
[2016-10-16] MEDS ORDERED: TROUGH ORDER-PHARMACY XX NR (14:00)
--- NOTE | 2016-10-16 19:24 | Discharge Summary ---
Diagnosis/Chief Complaint Date of Admission Oct 14, 2016 at 1:19 pm Date of Discharge Oct 16, 2016 at 11:31 am Admission Diagnosis Admission Diagnosis 1. Right sided pneumonia with pleural effusion--admit and start triple abx therapy and consult pulmonology, oxygen, SVNs, smoking cessation discussed 2. Right Chest Pain--pain control 3. Hypertension--resume home medications Discharge Diagnosis 1. Right sided pneumonia with empyema--transferred to [facility] for decortication 2. Hypertension--stable 3. Tobacco Abuse 4. Right Chest Pain Reason Hospital Visit This is a 55 year old female who had been seen twice in the urgent care over the past week for pneumonia and had been seen 3 days in a row for pneumonia in the emergency room due to worsening pain in her right chest. Her CXR looked much worse compared to yesterdays and her WBC count was also increased. It was decided she should be admitted for failed outpatient treatment as well as pulmonary consult due to significant pleural effusion or parapneumonic effusion in her right lung. Discharge Summary Hospital Course Hospital Course This is a 55 year old female who had been seen twice in the urgent care over the past week for pneumonia and had been seen 3 days in a row for pneumonia in the emergency room due to worsening pain in her right chest. Her CXR looked much worse compared to yesterdays and her WBC count was also increased. It was decided she should be admitted for failed outpatient treatment as well as pulmonary consult due to significant pleural effusion or parapneumonic effusion in her right lung. She was started on triple antibiotic therapy with Vancomycin , Levaquin and Zosyn. She had toradol and fentanyl for her right sided chest pain. Pulmonology was consulted and the patient underwent thoracentesis however there was very little drainage with this procedure and her CXR did not improve. It was felt that she likely had an empyema and would require decortication. Dr. Chowdhury contacted Dr. Hernandez at [facility] in [place] and he accepted to the patient in transfer. Labs Laboratory Tests 10/14/16 11:35: Glucose Level 112H, Lymphocytes (%) (Auto) 4L, Monocytes # (Auto) 2.1H, Neutrophils # (Auto) 21.4H, Neutrophils (%) (Auto) 87H, Red Cell Distribution Width 16.9H, White Blood Count 24.5H 10/14/16 11:49: Arterial Blood Partial Pressure O2 55L, Arterial Blood pH 7.46H 10/15/16 06:15: Lymphocytes (%) (Auto) 9L, Monocytes # (Auto) 1.5H, Neutrophils # (Auto) 13.2H, Neutrophils (%) (Auto) 80H, Red Cell Distribution Width 16.9H, White Blood Count 16.5H, Alanine Aminotransferase (ALT/SGPT) 61H, Aspartate Amino Transf ( AST/SGOT) 35H, Potassium Level 3.5L, Total Protein 6.1L 10/15/16 13:45: Prothrombin Time 15.4H, Vancomycin Level Trough 7.3L 10/15/16 16:00: 10/16/16 04:59: Lymphocytes # (Auto) 0.9L, Lymphocytes (%) (Auto) 7L, Monocytes # (Auto) 1.3H, Neutrophils # (Auto) 10.1H, Neutrophils (%) (Auto) 80H, Red Blood Count 4.13L, Red Cell Distribution Width 17.1H, White Blood Count 12.6H Procedures None. Discharge Physical Examination Allergies: Coded Allergies: morphine (Verified Allergy, Unknown, ITCHING, 07/10/07) Vitals & I&Os Vital Signs Date Time Temp Pulse Resp B/P Pulse Ox O2 Delivery O2 Flow Rate FiO2 10/16/16 10:38 94 3.00 10/16/16 08:52 Nasal Cannula 10/16/16 08:41 97.4 10/16/16 08:25 79 20 97/58 General Appearance: Alert, Oriented X3, Moderate Distress Respiratory: Other (decreased aeration on right ) Cardiovascular: Regular Rate Abdominal: Normal Bowel Sounds, Soft, No Tenderness Extremities: No Clubbing, No Cyanosis, No Edema Neuro: Other (weakness) Psych/Mental Status: Mental Status NL, Mood NL Discharge Home Medications Reviewed and agree with Discharge Medication list on patient's Discharge Instruction sheet Instructions to Patient/Family Please see electonic discharge instructions given to patient. Clinical Quality Measures DVT/VTE Risk/Contraindication: Risk Factor Score Per Nursin RFS Level Per Nursing on Admit: 3=High ALECIA CELSETE DO Oct 16, 2016 7:23 pm
[2016-10-17] MEDS ORDERED: TROUGH ORDER-PHARMACY XX NR (14:00)
--- NOTE | 2016-10-21 12:01 | Physician Query ---
PQ-Further Specificity Admission/Discharge Admission Date: Oct 14, 2016 at 13:19 Discharge Date: Oct 16, 2016 at 11:31 The medical record reflects the following clinical scenario: History/Risk Factors: [list no more than 2] Clinical Findings: [list no more than 2] Treatment: [list no more than 2] Question: Can you further specify [diagnosis/condition] per the clinical indicators above? Please document below. 1. [list #1 diagnosis choice/organism] 2. [list the diagnosis/condition already documented] 3. Other, with explanation of the clinical findings. 4. Clinically undetermined, no explanation for the clinical findings. Please remember a lack of response to the above will prompt a phone page by [facility]/ coding staff. In responding to this query, please exercise your independent professional judgment. The purpose of this communication is to more accurately reflect the complexity of your patients condition. The fact that a question is asked does not imply that any particular answer is desired or expected. Thank you for your timely response to this clarification. Requestors name: [ ] Phone # [ ] THIS PHYSICIAN QUERY FORM IS A PERMANENT PART OF THE MEDICAL RECORD ALON العراقي Oct 21, 2016 12:01
== END 2016-10-16 11:31 | disposition short-term general hospital (02) | DRG 193 ==
LOC: EDUNIT# 11:12 → ER 11:14 → 4TH 13:19
PROVIDERS: ADMIT Family Medicine; ATTEND Family Medicine
PROC: 0W993ZZ Drainage of Right Pleural Cavity, Percutaneous Approach (ICD-10-PCS; principal; 2016-10-15)
DX: J18.9 Pneumonia, unspecified organism (principal); J86.9 Pyothorax without fistula; I10 Essential (primary) hypertension; E11.9 Type 2 diabetes mellitus without complications; G47.33 Obstructive sleep apnea (adult) (pediatric); F17.210 Nicotine dependence, cigarettes, uncomplicated; Z79.84 Long term (current) use of oral hypoglycemic drugs
CPT/HCPCS: 36415; 71010; 71020; 71260; 77012; 80053; 80202; 82805; 82945; 83605; 85007; 85025; 85027; 85610; 87040; 87070; 87075; 87101; 87205; 87804; 88112; 88305; 89051; 93005; 93041; 94640; 94664; 94760; 96361; 96365; 96374; 96375

== ENCOUNTER → 2017-07-21 | Outpatient (CLI) | payer BC ==
[~2017-07-21] MED LIST changes: +IBUP-30 PO; -NAPR500T3 PO; +NAPR500T4 PO; +PRD20T PO
== END ==
LOC: RAD 15:22
PROVIDERS: ATTEND Obstetrics & Gynecology
DX: Z12.31 Encounter for screening mammogram for malignant neoplasm of breast (principal)
CPT/HCPCS: 77067

== ENCOUNTER → 2018-07-31 | Outpatient (CLI) | payer BC ==
[~2018-07-31] MED LIST changes: +METF-397 PO; -METF500T4 PO; +NAPR-915 PO; -NAPR500T4 PO; -OXYC-197 PO; +OXYC1TAB87 PO
--- NOTE | 2018-07-31 16:31 | Diagnostic Imaging Report ---
INDICATION: Routine screening. COMPARISON: Prior mammogram from 07/21/2017 and 07/01/2016. EXAMINATION: 2D and 3D bilateral screening mammography was performed with CAD. The current study was also evaluated with a Computer Aided Detection (CAD) system. FINDINGS: Both breasts are heterogeneously dense, limiting the sensitivity of mammography. Circumscribed density in the upper right breast appears more prominent on today's study. This appears to be just lateral to the nipple line on the CC view and approximately 7 cm deep to the nipple. Ultrasound is recommended. Left breast is stable. No new mass or malignant appearing microcalcifications are seen. Axillae are unremarkable. IMPRESSION: Enlarging density in the upper and slightly outer right breast, as described. This is circumscribed and most like represents an enlarging cyst. Further evaluation with ultrasound is recommended. ACR BI-RADS Category 0: Incomplete. (Needs additional imaging evaluation). Result letter will be mailed to the patient. Note: At least 10% of breast cancer is not imaged by mammography. Dictated on workstation # [id number]
== END ==
LOC: RAD 10:47
PROVIDERS: ATTEND Obstetrics & Gynecology
DX: Z12.31 Encounter for screening mammogram for malignant neoplasm of breast (principal); N64.89 Other specified disorders of breast
CPT/HCPCS: 77067

== ENCOUNTER → 2018-08-19 | Outpatient (CLI) | payer BC ==
--- NOTE | 2018-08-19 13:20 | Diagnostic Imaging Report ---
INDICATION: Enlarging density in the upper outer right breast noted on recent mammogram. This study is performed for further evaluation. CORRELATION is made with recent screening study from 07/31/2018. FINDINGS: Sonographic interrogation of the right breast in all 4 quadrants was performed. There are numerous hypoechoic masses throughout the right breast suggestive of cysts. There appears to be a cluster at the 9 o'clock location in aggregate measuring approximately 1.7 x 0.7 x 0.7 cm. This may account for the mammographic density. Several cysts at the 2 and 3 o'clock location of the right breast are also seen measuring approximately 8-10 mm in size. No definite solid mass is identified. IMPRESSION: BI-RADS 3 Findings suggestive of cysts in the inner and outer portion of the right breast, likely accounting for the mammographic density. Even so, followup right mammogram and right breast ultrasound in 6 months is recommended to show continued stability. ACR BI-RADS Category 3: Probably benign findings. Result letter will be mailed to the patient. Note: At least 10% of breast cancer is not imaged by mammography. Dictated by: Dictated on workstation # [id number]
== END ==
LOC: RAD 10:17
PROVIDERS: ATTEND Obstetrics & Gynecology
DX: R92.2 Inconclusive mammogram (principal)

== ENCOUNTER → 2019-08-02 | Outpatient (CLI) | payer BC ==
--- NOTE | 2019-08-02 16:34 | Diagnostic Imaging Report ---
INDICATION: Right arm radiculopathy. COMPARISON: None available. TECHNIQUE: Three radiographs of the cervical spine dated August 02, 2019. FINDINGS: Alignment of the cervical spine is well maintained. Vertebral body heights are well maintained besides scattered endplate degenerative changes. Moderate disc space height loss at C5/C6 and C6/C7 with associated anterior osteophyte formation. Mild disc space height loss at C7/T1. The lateral masses are well seated. The dens is grossly unremarkable, though the tip is obscured by overlying teeth and osseous structures. Mild multilevel facet joint degenerative changes. Calcifications within the bilateral carotid bulbs. IMPRESSION: 1. No acute osseous abnormality with moderate degenerative changes. 2. Given provided history of radiculopathy, if further evaluation is desired, MRI of the cervical spine would be recommended. Dictated by: Dictated on workstation # [id number]
== END ==
LOC: RAD 15:52
PROVIDERS: ATTEND Family Medicine
DX: M54.12 Radiculopathy, cervical region (principal)
CPT/HCPCS: 72040

== ENCOUNTER → 2019-08-20 | Outpatient (CLI) | payer BC ==
--- NOTE | 2019-08-20 11:59 | Diagnostic Imaging Report ---
INDICATION: Routine screening. Comparison is made with prior mammogram from 07/31/2018 and 07/21/2017. 2-D and 3-D bilateral screening mammography was performed with CAD. Both breasts remain heterogeneously dense, limiting the sensitivity of mammography. Circumscribed density in the right breast is noted and has been shown to represent a cyst. No spiculated mass or malignant appearing microcalcifications are seen. There are benign calcifications. Axillae are unremarkable. IMPRESSION: BI-RADS Category 2 No mammographic features suspicious for malignancy are identified. ACR BI-RADS Category 2: Benign findings. Result letter will be mailed to the patient. Note: At least 10% of breast cancer is not imaged by mammography. Dictated by: Dictated on workstation # [id number]
== END ==
LOC: RAD 08:06
PROVIDERS: ATTEND Obstetrics & Gynecology
DX: Z12.31 Encounter for screening mammogram for malignant neoplasm of breast (principal)
CPT/HCPCS: 77067

== ENCOUNTER → 2019-10-08 | Outpatient (CLI) | payer BC ==
--- NOTE | 2019-10-08 16:13 | Diagnostic Imaging Report ---
PROCEDURE: MR imaging cervical spine without contrast. TECHNIQUE: Multiplanar, multisequence MR imaging of the cervical spine was performed without contrast. INDICATION: Right arm radiculopathy. Neck pain. COMPARISON: Cervical spine radiographs 08/02/2019. FINDINGS: Normal alignment. Vertebral body heights preserved. Modic type II degenerative endplate changes at C5-C6. Bone marrow signal is otherwise unremarkable. No abnormal signal in the cervical spinal cord. The visualized paravertebral soft tissues are unremarkable. C2-C3: Normal. C3-C4: Posterior disc osteophyte complex results in mild spinal canal narrowing. Moderate bilateral neural foraminal narrowing. C4-C5: Posterior disc osteophyte complex results in mild spinal canal narrowing. Uncovertebral and facet arthropathy result in mild bilateral neural foraminal narrowing. C5-C6: Posterior disc osteophyte complex results in moderate to severe spinal canal narrowing. Severe bilateral neural foraminal narrowing. C6-C7: Posterior disc osteophyte complex results in moderate spinal canal and left neural foraminal narrowing. Mild right neural foraminal narrowing. C7-T1: Posterior disc osteophyte complex results in mild spinal canal narrowing. Moderate to severe right and moderate left neural foraminal narrowing. IMPRESSION: 1. Spondylotic changes result in moderate to severe spinal canal narrowing at C5-C6, moderate at C6-C7. No abnormal signal in the cervical spinal cord. 2. Multilevel high-grade neural foraminal narrowing detailed above level by level. 3. No acute osseous or ligamentous findings. Dictated by: Dictated on workstation # [id number]
== END ==
LOC: RAD 14:57
PROVIDERS: ATTEND Family Medicine
DX: M47.812 Spondylosis without myelopathy or radiculopathy, cervical region (principal); M54.12 Radiculopathy, cervical region
CPT/HCPCS: 72141

== ENCOUNTER → 2020-05-03 | Outpatient (CLI) | payer BC | LOC: LABNPT 06:01 | PROVIDERS: ATTEND Family Medicine | DX: R51 Headache (principal); R09.81 Nasal congestion; Z20.828 Contact with and (suspected) exposure to other viral communicable diseases | CPT/HCPCS: 87635 ==

== ENCOUNTER → 2021-02-16 | Outpatient (CLI) | payer BC ==
[~2021-02-16] MED LIST changes: +LISI40TA9 PO
--- NOTE | 2021-02-16 12:28 | Diagnostic Imaging Report ---
Indication: Routine screening. Comparison is made with prior mammogram 08/20/2019 and 07/31/2018. 2-D and 3-D bilateral screening mammography was performed with CAD. Both breasts are heterogeneously dense, limiting the sensitivity of mammography. No mass or malignant appearing microcalcifications are seen. There are benign calcifications present. Axillae are unremarkable. IMPRESSION: BI-RADS Category 2 No mammographic features suspicious for malignancy are identified. ACR BI-RADS Category 2: Benign findings. Result letter will be mailed to the patient. Note: At least 10% of breast cancer is not imaged by mammography. Dictated by: Dictated on workstation # [id number]
== END ==
LOC: RAD 10:15
PROVIDERS: ATTEND Obstetrics & Gynecology
DX: Z12.31 Encounter for screening mammogram for malignant neoplasm of breast (principal)
CPT/HCPCS: 77063; 77067

== ENCOUNTER → 2022-03-05 | Outpatient (CLI) | payer BC ==
[~2022-03-05] MED LIST changes: -DULO60CA6 PO; +DULO60CA7 PO; +HYDR-4085 PO; -HYDR-87 PO; -MMT17NA NS; +MOME17SP4 NS; -SULF1TAB35 PO; +SULF1TAB38 PO
--- NOTE | 2022-03-05 16:02 | Diagnostic Imaging Report ---
GASTRIC EMPTYING TIME SCAN Technique: Anterior and posterior planar scintigraphic images of the stomach were obtained after the patient ingested of technetium 99m sulfur collate mixed with eggs. Indication: Abdominal pain Comparison: None available. Findings: A time activity curve was calculated for the stomach with the following values of retained activity in the stomach post ingestion: 1 hour: 43% (delayed if greater than 90% retained) 2 hour: 33% (delayed if greater than 60% retained) 3 hour: 16% (delayed if greater than 30% retained) 4 hour: 6% (delayed if greater than 10%) The half-time (T1/2) for gastric emptying was 52 minutes, which is normal. Impression:No gastroparesis. Dictated by: Dictated on workstation # [id number]
== END ==
LOC: CARD 08:51
PROVIDERS: ATTEND Internal Medicine Gastroenterology
DX: R10.13 Epigastric pain (principal)
CPT/HCPCS: 78264; A9541

== ENCOUNTER → 2022-05-21 | Outpatient (CLI) | payer BC ==
--- NOTE | 2022-05-21 16:45 | Diagnostic Imaging Report ---
INDICATION: Routine screening. COMPARISON is made with prior mammograms 02/16/2021 and 08/20/2019. 2-D and 3-D bilateral screening mammography was performed with CAD. Both breasts are heterogeneously dense, limiting the sensitivity of mammography. There is a density in the posterior right breast on the MLO view, at or just above the nipple line. No definite corresponding density on the CC view is seen. Additional views are recommended. Fairly well-circumscribed density in the posterior left breast is noted as well and additional views are recommended. No suspicious microcalcifications are seen. Axillae are unremarkable. IMPRESSION: BI-RADS 0 Bilateral breast densities. Additional views are recommended for further evaluation. ACR BI-RADS Category 0: Incomplete. (Needs additional imaging evaluation). Result letter will be mailed to the patient. Note: At least 10% of breast cancer is not imaged by mammography. Dictated by: Dictated on workstation # [id number]
== END ==
LOC: RAD 15:45
PROVIDERS: ATTEND Obstetrics & Gynecology
DX: Z12.31 Encounter for screening mammogram for malignant neoplasm of breast (principal)
CPT/HCPCS: 77063; 77067

== ENCOUNTER → 2022-05-23 | Outpatient (CLI) | payer BC ==
--- NOTE | 2022-05-23 10:42 | Diagnostic Imaging Report ---
INDICATION: Bilateral breast densities. Patient presents for additional views. Correlation is made with prior screening mammogram from 05/21/2022. 2-D and 3-D bilateral diagnostic mammography was performed with CAD. No discrete mass on the right is identified with additional views. The density most likely represent superimposed tissue. Even so, sonographic interrogation of the right breast is recommended. There is a somewhat persistent circumscribed small density just lateral to the nipple line in the left breast on the CC view at approximately 6 made 6 images from the nipple. May represent a small cyst. Further evaluation with ultrasound of this area will also be performed. IMPRESSION: No definite mass on the right is identified. There is a circumscribed density on the left. Bilateral breast ultrasound is recommended and will be performed today. ACR BI-RADS Category 0: Incomplete. (Needs additional imaging evaluation). Result letter will be mailed to the patient. Note: At least 10% of breast cancer is not imaged by mammography. BI-RADS 0 Dictated by: Dictated on workstation # [id number]
--- NOTE | 2022-05-23 12:22 | Diagnostic Imaging Report ---
Indication: Bilateral breast densities. Correlation is made with diagnostic mammogram earlier same day. Right breast: Sonographic interrogation of the right breast was performed from the 9-3 o'clock location. No solid or cystic masses detected. Left breast: Sonographic interrogation outer left breast does show a simple cyst at the 3-330 location, 5 cm from the nipple measuring 8 mm x 6 cm x 6 mm. This corresponds to the mammographic density. No solid lesions are seen. IMPRESSION: BI-RADS Category 2 Unremarkable right breast. There is a simple cyst left breast. Patient may return to routine annual screening mammography. ACR BI-RADS Category 2: Benign findings. Result letter will be mailed to the patient. Note: At least 10% of breast cancer is not imaged by mammography. Dictated by: Dictated on workstation # [id number]
== END ==
LOC: RAD 09:37
PROVIDERS: ATTEND Obstetrics & Gynecology
DX: N60.02 Solitary cyst of left breast (principal)
CPT/HCPCS: 76642; 77066; G0279; 77062

== ENCOUNTER 2023-07-15 18:29 | Emergency (ER) | payer BC ==
[~2023-07-15] VITALS: Ht 165 cm; Wt 95.0 kg
[~2023-07-15 18:29] MED LIST changes: +ALBU8.5H6 IH; -RT-ALBUINH IH
[2023-07-15] MEDS ORDERED: ACETAMINOPHEN 325 MG TABLET PO ONE (18:45)
--- NOTE | 2023-07-15 18:47 | ED Abdominal Pain ---
General Chief Complaint: Abdominal/GI Problems Stated Complaint: ABD PAIN, DIAREHHA, BELCHING/GAS Nursing Triage Note: ARRIVED VIA AMB WITH COMPLAINTS OF DIARRHEA AND BERPS THAT TASTE/SMELL LIKE STOOL. Source of Information: Patient Exam Limitations: No Limitations History of Present Illness Date Seen by Provider: Jul 15, 2023 Time Seen by Provider: 18:45 Initial Comments Patient is a 62-year-old female with a history of diverticulitis with colectomy who presents ED for abdominal pain. Abdominal pain started around 2 PM today. Pain is located in her lower abdomen bilateral described as cramping. reports pain 4 out 10. Refused anything for pain. She reports nausea with belching with a bad taste over the past week. Denies any vomiting but reports 3 episodes of diarrhea without any blood or mucus. Has had some episodes of diarrhea last week. Similar type pain in the past secondary to diverticulitis. She reports decreased urination without any pain. She denies any fever, chills, body aches, headache, chest pain, shortness of breath. She denies taking thing for pain at home. Patient Was seen at [facility] had an abnormal x-ray concern for obstruction. Allergies and Home Medications Allergies Coded Allergies: morphine (Verified Allergy, Unknown, ITCHING, 07/10/07) Patient Home Medication List Home Medication List Reviewed: Yes Albuterol Sulfate (Ventolin Hfa) 1 Puff Puff, 2 PUFF IH Q4H Prescribed by: AMY OLIVAS on 10/12/16 0432 Ascorbic Acid (Vitamin C) 1,000 Mg Tablet.er, 1,000 MG PO DAILY, (Reported) Entered as Reported by: MARA ALFARO on 08/10/16 1802 Aspirin (Aspir 81) 81 Mg Tablet.dr, 81 MG PO DAILY, (Reported) Entered as Reported by: ALCIDES JULIO on 03/22/16 1347 Cefdinir (Cefdinir) 300 Mg Capsule, 300 MG PO BID, (Reported) Entered as Reported by: VIKRAM SALGADO on 10/14/16 1444 Duloxetine HCl (Cymbalta) 60 Mg Capsule.dr, 60 MG PO DAILY, (Reported) Entered as Reported by: ALCIDES JULIO on 03/22/16 1347 Estrogen,Estephania/Me-Testosterone (Eemt Ds 1.25-2.5 mg Tablet) 1 Each Tablet, 1 TAB PO DAILY, (Reported) Entered as Reported by: VIKRAM SALGADO on 10/14/16 1438 Ibuprofen (Advil) 200 Mg Tablet, 400 MG PO Q4H PRN for PAIN, (Reported) Entered as Reported by: VIKRAM SALGADO on 10/14/16 1455 Lisinopril (Lisinopril) 40 Mg Tablet, 40 MG PO DAILY, (Reported) Entered as Reported by: ALCIDES JULIO on 03/22/16 1347 Metformin HCl (Metformin HCl) 500 Mg Tablet, 500 MG PO DAILY, (Reported) Entered as Reported by: ALCIDES JULIO on 03/22/16 1347 Multivitamin (Multi-Day Vitamins) 1 Each Tablet, 1 TAB PO DAILY, (Reported) Entered as Reported by: ALCIDES JULIO on 03/22/16 1347 Oxycodone HCl/Acetaminophen (Percocet 5-325 mg Tablet) 1 Each Tablet, 1-2 EACH PO Q4H PRN for PAIN Prescribed by: DELROY MUELLER on 10/13/16 0629 Pantoprazole Sodium (Protonix) 40 Mg Tablet.dr, 40 MG PO DAILY Prescribed by: SERAFIN MCDANIEL on 07/15/23 204 Prednisone (Prednisone) 20 Mg Tab, 20 MG PO BID, (Reported) Entered as Reported by: VIKRAM SALGADO on 10/14/16 1454 Vitamin B Complex (Vitamin B Complex) 1 Each Capsule, 1 CAP PO DAILY, (Reported) Entered as Reported by: MARA ALFARO on 08/10/161801 Vitamin E Acetate (Vitamin E) 1,000 Unit Capsule, 1,000 UNIT PO DAILY, (Reported) Entered as Reported by: MARA ALFARO on 08/10/161801 Review of Systems Review of Systems Constitutional: No chills, No diaphoresis, No fever, No malaise, No weakness EENTM: No Double Vision, No Eye Pain Respiratory: Denies Cough, Denies Orthopnea Cardiovascular: Denies Chest Pain Gastrointestinal: Abdominal Pain; Denies Constipated; Diarrhea, Nausea; Denies Vomiting Genitourinary: Denies Burning, Denies Drainage, Denies Frequency Musculoskeletal: No back pain, No joint pain Skin: No change in color All Other Systems Reviewed Negative Unless Noted: Yes Past Cwnnffv-Zfwcfs-Vsalzb Hx Patient Social History Tobacco Use?: No Substance use?: No Alcohol Use?: Yes Alcohol Frequency: Rarely Immunizations Up To Date Tetanus Booster (TDap): Less than 5yrs Seasonal Allergies Seasonal Allergies: Yes Past Medical History Surgeries: Yes Abdominal, Appendectomy, Bowel Surgery, Section, Hysterectomy, Oophorectomy, Orthopedic Respiratory: Yes Sleep Apnea Currently Using CPAP: Yes Currently Using BIPAP: No Cardiac: Yes Hypertension Neurological: No Reproductive Disorders: No Female Reproductive Disorders: Denies 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, 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 Sexually Transmitted Disease: No HIV/AIDS: No Genitourinary: No Gastrointestinal: Yes Diverticulosis Musculoskeletal: No Endocrine: Yes (PRE-DIABETIC) Diabetes, Non-Insulin dep HEENT: No Loss of Vision: Denies Hearing Impairment: Denies Cancer: No Psychosocial: Yes Anxiety, Depression Integumentary: No Blood Disorders: No Adverse Reaction/Blood Tranf: No Physical Exam Vital Signs Vital Signs - First Documented 07/15/23 18:35 Temp 36.3 Pulse 65 Resp 16 B/P (MAP) 175/100 (125) Pulse Ox 99 O2 Delivery Room Air Capillary Refill : Less Than 3 Seconds Height/Weight/BMI Height: 5'5.00" Weight: 185lbs. 0.0oz. [id number]; 34.00 BMI Method:Stated General Appearance: WD/WN, no apparent distress HEENT: PERRL/EOMI, normal ENT inspection, TMs normal, pharynx normal Neck: non-tender, full range of motion, supple Respiratory: chest non-tender, lungs clear, normal breath sounds, no respiratory distress, no accessory muscle use Cardiovascular: regular rate, rhythm, no edema, no gallop, no JVD Gastrointestinal: normal bowel sounds, soft, no organomegaly, no pulsatile mass, tenderness (Left and right lower quadrant tenderness. Normal bowel sounds throughout. No rebound or guarding.) Extremities: normal range of motion, non-tender, normal inspection Back: normal inspection, no CVA tenderness Neurologic/Psychiatric: solvent mixer II-XII nml as tested, no motor/sensory deficits, alert, normal mood/affect, oriented x 3 Skin: normal color, warm/dry Progress/Results/Core Measures Results/Orders Lab Results Laboratory Tests Test 07/15/23 18:45 07/15/23 18:56 07/15/23 19:16 Range/Units Sodium Level 142 135-145 MMOL/L Potassium Level 3.9 3.6-5.0 MMOL/L Chloride Level 108 H 98-107 MMOL/L Carbon Dioxide Level 26 21-32 MMOL/L Anion Gap 8 5-14 MMOL/L Blood Urea Nitrogen 7 7-18 MG/DL Creatinine 0.74 0.60-1.30 MG/DL Estimat Glomerular Filtration Rate 93 BUN/Creatinine Ratio 9 Glucose Level 111 H 70-105 MG/DL Calcium Level 9.6 8.5-10.1 MG/DL Corrected Calcium 8.5-10.1 MG/DL Total Bilirubin 0.4 0.1-1.0 MG/DL Aspartate Amino Transf (AST/SGOT) 35 H 5-34 U/L Alanine Aminotransferase (ALT/SGPT) 54 0-55 U/L Alkaline Phosphatase 61 40-136 U/L Total Protein 7.4 6.4-8.2 GM/DL Albumin 4.7 H 3.2-4.5 GM/DL Lipase 170 H 8-78 U/L Urine Color YELLOW Urine Clarity CLEAR Urine pH 7.5 5-9 Urine Specific [place] 1.015 L 1.016-1.022 Urine Protein NEGATIVE NEGATIVE Urine Glucose (UA) NEGATIVE NEGATIVE Urine Ketones NEGATIVE NEGATIVE Urine Nitrite NEGATIVE NEGATIVE Urine Bilirubin NEGATIVE NEGATIVE Urine Urobilinogen 1.0 < = 1.0 MG/DL Urine Leukocyte Esterase NEGATIVE NEGATIVE Urine RBC (Auto) TRACE H NEGATIVE Urine RBC NONE /HPF Urine WBC NONE /HPF Urine Squamous Epithelial Cells 2-5 /HPF Urine Crystals PRESENT H /LPF Urine Amorphous Sediment MOD PETER PHOSPHATE H /LPF Urine Bacteria TRACE /HPF Urine Casts NONE /LPF Urine Mucus NEGATIVE /LPF Urine Culture Indicated NO White Blood Count 10.4 4.3-11.0 10^3/uL Red Blood Count 4.40 3.80-5.11 10^6/uL Hemoglobin 13.2 11.5-16.0 g/dL Hematocrit 41 35-52 % Mean Corpuscular Volume 93 80-99 fL Mean Corpuscular Hemoglobin 30 25-34 pg Mean Corpuscular Hemoglobin Concent 32 32-36 g/dL Red Cell Distribution Width 14.3 10.0-14.5 % Platelet Count 303 130-400 10^3/uL Mean Platelet Volume 11.1 9.0-12.2 fL Immature Granulocyte % (Auto) 0 % Neutrophils (%) (Auto) 62 42-75 % Lymphocytes (%) (Auto) 26 12-44 % Monocytes (%) (Auto) 9 0-12 % Eosinophils (%) (Auto) 2 0-10 % Basophils (%) (Auto) 0 0-10 % Neutrophils # (Auto) 6.5 1.8-7.8 10^3/uL Lymphocytes # (Auto) 2.7 1.0-4.0 10^3/uL Monocytes # (Auto) 1.0 0.0-1.0 10^3/uL Eosinophils # (Auto) 0.2 0.0-0.3 10^3/uL Basophils # (Auto) 0.0 0.0-0.1 10^3/uL Immature Granulocyte # (Auto) 0.0 0.0-0.1 10^3/uL My Orders Orders - SYDNEY JOY Cbc And Automated Diff (07/15/23 18:34) Comprehensive Metabolic Panel (07/15/23 18:34) Lipase (07/15/23 18:34) Ns Iv 1000 Ml (Ns Iv 1000 Ml) (07/15/23 18:34) Urinalysis (07/15/23 18:34) Acetaminophen Tablet (Acetaminophen Ta (07/15/23 18:45) Ct Abdomen/Pelvis W (07/15/23 18:44) Iohexol Injection (Omnipaque 350 Mg/Ml 1 (07/15/23 19:00) Received Contrast (Hold Metformin- Contr (07/15/23 19:00) Ns (Ivpb) 100 Ml (Sodium Chloride 0.9% 1 (07/15/23 19:00) Pantoprazole Injection (Pantoprazole Inj (07/15/23 20:45) Ondansetron Injection (Ondansetron Inj (07/15/23 20:45) Rx-Ondansetron Po (Rx-Zofran Po) (07/15/23 20:45) Medications Given in ED Vital Signs/I&O 07/15/23 07/15/23 18:35 20:54 Temp 36.3 Pulse 65 70 Resp 16 18 B/P (MAP) 175/100 (125) 152/98 Pulse Ox 99 99 O2 Delivery Room Air Room Air Blood Pressure Mean: 125 Departure Communication (PCP) Reviewed previous ER visits, H&P, lab testing. History of diverticulitis with colon resection. She states she started developing lower abdominal discomfort this evening. She states she has been belching for the past week but became worse today. She had 3-4 wet stools. She did have some diarrhea last week. Has been eating and drinking but has not eaten anything today. Passing stools did drink some water before arrival. She does appear to be belching. No obvious abdominal distention at this time. Bowel sounds noted. She is afebrile. No epigastric left upper quadrant or right upper quadrant tenderness. No chest pain or shortness of breath. CBC, CMP was grossly unremarkable. Lipase 170. She is not febrile. Normal kidney function and liver function. Urinalysis negative for infection. Did obtain a CT abdomen pelvis shows distended stomach up to the pylorus where there is some mucosal thickening in the pylorus. Potential partial gastric outlet obstruction or gastroparesis. May need further evaluation EGD. She states she had a EGD this year at [facility] which was grossly unremarkable. There is no evidence of cholecystitis, appendicitis or obstructive uropathy. Nonobstructing 6 mm stone in the inferior pole of the left kidney. No evidence of diverticulitis. No small or large bowel obstruction. Patient did receive IV Protonix 40 mg. She refused anything for pain. Denies the worst pain of her life. Denies history of peptic ulcers. History of GERD. I did discuss patient with Dr. Oquendo general surgeon. At this time recommended clear liquids for the next 2 or 3 days. start with Protonix. She has been on omeprazole. Dr. Oquendo recommends follow-up in the clinic at 3 PM tomorrow. Will likely need a upper EGD. Clear liquids at this time. If any worsening developing pain vomiting to return back to ED. Impression Primary Impression: Partial gastric outlet obstruction Disposition: 01 HOME, SELF-CARE Condition: Stable Departure-Patient Inst. Decision time for Depature: 20:29 Referrals: KATY OQUENDO JACQUELINE S DO (PCP/Family) Primary Care Physician Patient Instructions: Gastric Outlet Obstruction, Adult Add. Discharge Instructions: Follow-up with Dr. Oquendo's office between 3:00-330 tomorrow. Take Protonix daily. Do not take your omeprazole. Clear liquids for the next 2 to 3 days. If any worsening pain, projectile vomiting to return back to ED. All discharge instructions reviewed with patient and/or family. Voiced understanding. Scripts Pantoprazole Sodium (Protonix) 40 Mg Tablet. 40 MG PO DAILY, #20 TAB Prov: SYDNEY JOY 07/15/23 SYDNEY JOY Jul 15, 2023 18:47
[2023-07-15] MEDS: NS IV 1000 ML 1,000 ML IV STA (18:55)
[2023-07-15 19:00] LABS: ALBUMIN 4.7 GM/DL (3.2-4.5)
[2023-07-15] MEDS ORDERED: HOLD METFORMIN - RECEIVED CONTRAST 20 ML VIAL IV SCH (19:00)
[2023-07-15 19:01] LABS: CHLORIDE 108 MMOL/L (98-107); POTASSIUM 3.9 MMOL/L (3.6-5.0); SODIUM 142 MMOL/L (135-145)
[2023-07-15 19:02] LABS: CALCIUM 9.6 MG/DL (8.5-10.1)
[2023-07-15 19:03] LABS: GLUCOSE 111 MG/DL (70-105); TOTAL PROTEIN 7.4 GM/DL (6.4-8.2)
[2023-07-15 19:04] LABS: CARBON DIOXIDE 26 MMOL/L (21-32)
[2023-07-15 19:05] LABS: BILIRUBIN,TOTAL 0.4 MG/DL (0.1-1.0)
[2023-07-15 19:06] LABS: ALKALINE PHOSPHATASE 61 U/L (40-136)
[2023-07-15 19:07] LABS: CREATININE SERUM 0.74 MG/DL (0.60-1.30); GFR ESTIMATED 93
[2023-07-15 19:08] LABS: BUN/CREATININE RATIO 9
[2023-07-15 19:09] LABS: BACTERIA,URINE TRACE /HPF; BILIRUBIN,URINE NEGATIVE (NEGATIVE); CLARITY,URINE CLEAR; COLOR,URINE YELLOW; GLUCOSE, URINE (UA) NEGATIVE (NEGATIVE); KETONES,URINE NEGATIVE (NEGATIVE); LEUKOCYTE ESTERASE ,URINE NEGATIVE (NEGATIVE); NITRITE,URINE NEGATIVE (NEGATIVE); PH,URINE 7.5 (5-9); PROTEIN,URINE NEGATIVE (NEGATIVE)
[2023-07-15 19:10] LABS: ALANINE AMINOTRANSFERASE 54 U/L (0-55); LIPASE 170 U/L (8-78)
[2023-07-15 19:10] LABS: AMORPHOUS SEDIMENT,UR MOD AMOR PHOSPHATE /LPF
[2023-07-15 19:23] LABS: BASOPHILS % (AUTO) 0 % (0-10); EOSINOPHILS # (AUTO) 0.2 10^3/uL (0.0-0.3); EOSINOPHILS % (AUTO) 2 % (0-10); HEMATOCRIT 41 % (35-52); HEMOGLOBIN 13.2 g/dL (11.5-16.0); LYMPHOCYTES # (AUTO) 2.7 10^3/uL (1.0-4.0); LYMPHOCYTES % (AUTO) 26 % (12-44); MEAN CORPUSCULAR HEMOGLOBIN 30 pg (25-34); MEAN CORPUSCULAR HGB CONC 32 g/dL (32-36); MEAN CORPUSCULAR VOLUME 93 fL (80-99); MEAN PLATELET VOLUME 11.1 fL (9.0-12.2); MONOCYTES % (AUTO) 9 % (0-12); NEUTROPHILS # (AUTO) 6.5 10^3/uL (1.8-7.8); NEUTROPHILS % (AUTO) 62 % (42-75); PLATELET COUNT 303 10^3/uL (130-400); WHITE BLOOD COUNT 10.4 10^3/uL (4.3-11.0)
[2023-07-15] MEDS: IOHEXOL 350 MG/ML 100 ML (OMNIPAQUE 350) VIAL IV ONE (19:31)
[2023-07-15] MEDS: NS 100 ML (IVPB) BAG IV ONE (19:32)
--- NOTE | 2023-07-15 19:53 | Diagnostic Imaging Report ---
PROCEDURE: CT abdomen and pelvis with contrast. TECHNIQUE: Multiple contiguous axial images were obtained through the abdomen and pelvis after administration of intravenous contrast. Auto Exposure Controls were utilized during the CT exam to meet ALARA standards for radiation dose reduction. All CT scans use one or more of the following dose optimizing techniques: automated exposure control, MA and/or KvP adjustment based on patient size and exam type or iterative reconstruction. INDICATION: 62-year-old female with diarrhea with fecal smelling burps. COMPARISONS: 03/22/2016 FINDINGS: Lung bases are clear. Cardiac contour is normal. Liver shows uniform attenuation. Gallbladder, spleen, GE junction are normal. The stomach is markedly distended. The pylorus is slightly thickened. Duodenal sweep is normal. Pancreas shows sharp margins. Adrenals are normal. Kidneys appear normal in size, position, and contour. There is a 2 cm Bosniak classification 2 cyst in the right kidney unchanged. There is symmetrical perfusion of contrast. There is a 6 mm stone in an inferior pole calyx of the left kidney. There is no hydronephrosis or hydroureter. Both ureters are seen intermittently through their course and appear unremarkable. Partially filled bladder is normal. Nonopacified loops of small bowel are unremarkable. Large bowel contains a moderate amount of fecal load as well as scattered pockets of gas. There is left colon diverticular disease up to the sigmoid colon but no evidence of acute diverticulitis. There is a previous enteric anastomosis in the sigmoid colon. Nonaneurysmal aortic calcifications extend to the iliac and femoral arteries. There is normal origin of the visceral arteries. Bone windows show degenerative changes of lumbosacral spine most prominent at L5-S1. IMPRESSION: 1. Stomach is distended up to the pylorus where there is some mucosal thickening in the pylorus. An element of partial gastric outlet obstruction or gastroparesis are within the differential. Correlation with EGD would be of further value. 2. No evidence of cholecystitis, appendicitis or obstructive uropathy. No areas of peritoneal inflammation seen. 3. Nonobstructing 6 mm stone in an inferior pole calyx of the left kidney. 4. Left colon diverticular disease but no evidence of acute diverticulitis. There is previous enteric anastomosis in the sigmoid colon from a previous bowel resection. Additional nonemergent findings as described above. Dictated by: Dictated on workstation # [id number]
[2023-07-15] MEDS ORDERED: PANT40TA2 PO (20:42)
[2023-07-15] MEDS: ONDANSETRON INJECTION 4 MG/2 ML (SDV) IVP ONE (20:48)
[2023-07-15] MEDS: RX-ONDANSETRON 4 MG ODT (ZOFRAN) PPK #4 PO ONE (20:48)
[2023-07-15] MEDS: PANTOPRAZOLE INJECTION 40 MG VIAL IV ONE (20:49)
[2023-07-15 20:54] VITALS: BP 152/98
== END 2023-07-15 20:54 | disposition home or self-care (01) ==
LOC: EDUNIT# 18:29 → ER 18:33
DX: K31.1 Adult hypertrophic pyloric stenosis (principal); G47.30 Sleep apnea, unspecified; Z99.89 Dependence on other enabling machines and devices
CPT/HCPCS: 36415; 74177; 80053; 81000; 83690; 85025

== ENCOUNTER 2023-07-21 07:57 | Outpatient (CLI) | payer BC ==
[~2023-07-21] VITALS: Ht 165 cm; Wt 95.5 kg
[~2023-07-21 07:57] MED LIST changes: +PANT40TA2 PO
[2023-07-22] MEDS ORDERED: SUCR1TAB36 PO ×2 (08:02)
== END 2023-07-21 11:16 | disposition home or self-care (01) ==
LOC: PREOP 07:57
PROVIDERS: ATTEND Surgery
DX: Z01.818 Encounter for other preprocedural examination (principal)

== ENCOUNTER 2023-07-22 07:07 | Day surgery (SDC) | payer BC ==
[~2023-07-22] VITALS: Ht 165.1 cm; Wt 95.5 kg
[~2023-07-22 07:07] MED LIST changes: +LACTATED RINGERS 1,000 ML 1,000 ML IV STA
[2023-07-22] MEDS ORDERED: HURRICAINE EXT TUBE (BENZOCAINE) XX PRN (07:15)
[2023-07-22 07:37] VITALS: BP 127/70
--- NOTE | 2023-07-22 07:42 | Progress Note-Pre Operative ---
Pre-Operative Progress Note Date H&P Reviewed: Jul 22, 2023 Time H&P Reviewed: 07:42 History & Physical: H&P Reviewed, Patient Examed, No changes noted Pre-Operative Diagnosis: Epigastric pain, abnormal CT scan KATY OQUENDO DO Jul 22, 2023 07:42
--- NOTE | 2023-07-22 08:01 | Progress Note-Post Operative ---
Post-Operative Progess Note Surgeon (s)/Laundry Supervisor (s) Surgeon KATY OQUENDO DO Laundry Supervisor: n/a Pre-Operative Diagnosis Epigastric pain, abnormal CT scan Post-Operative Diagnosis duodenitis, gastritis Procedure & Operative Findings Date of Procedure 07/22/23 Procedure Performed/Findings EGD with biopsies Anesthesia Type per HEART COORDINATOR Estimated Blood Loss Estimated blood loss (mL): none Specimens/Packing Specimens Removed duodenum x1, antrum x1, GE junction x1 KATY OQUENDO DO Jul 22, 2023 08:01
[2023-07-22] MEDS ORDERED: SUCR1TAB36 PO ×2 (08:02)
--- NOTE | 2023-07-22 08:02 | Discharge Inst-Simple/Standard ---
Discharge Inst-Standard Discharge Medications New, Converted or Re-Newed RX: Transmitted to Pharmacy Patient Instructions/Follow Up Plan of Care/Instructions/FU: 2 weeks oneyda Activity as Tolerated: Yes Discharge Diet: Regular Diet KATY OQUENDO DO Jul 22, 2023 08:02
[2023-07-22 08:05] VITALS: BP 118/57
[2023-07-22 08:10] VITALS: BP 111/54
[2023-07-22 08:25] VITALS: BP 111/54
--- NOTE | 2023-07-22 13:23 | Anesthesia-General Post-Op ---
MAC Patient Condition Mental Status/LOC: Same as Preop Cardiovascular: Satisfactory Nausea/Vomiting: Absent Respiratory: Satisfactory Pain: Controlled Complications: Absent Post Op Complications Complications None Follow Up Care/Instructions Patient Instructions None needed. Anesthesiology Discharge Order Discharge Order Patient is doing well, no complaints, stable vital signs, no apparent adverse anesthesia problems. No complications reported per nursing. JACEK CLARKE CRNA Jul 22, 2023 13:23
--- NOTE | 2023-07-22 13:30 | OPERATIVE REPORT ---
DATE OF SERVICE: 07/22/2023 PREOPERATIVE DIAGNOSES: Abnormal CT scan, epigastric abdominal pain. POSTOPERATIVE DIAGNOSES: Duodenitis, gastritis. PROCEDURE: EGD with biopsy. SURGEON: Katy Manning DO ANESTHESIA: Per CLAM GROWER. ESTIMATED BLOOD LOSS: None. COMPLICATIONS: None. INDICATIONS: The patient is a 62-year-old female, who had some thickening of the pylorus on CT scan and possible obstruction. She understands risks and benefits of procedure and wished to proceed. Consent was signed in chart. DESCRIPTION OF PROCEDURE: The patient was taken to endoscopy suite, placed in left lateral recumbent position. Timeout was performed. Scope was inserted in the mouth, down the esophagus, stomach, into the duodenum without difficulty. There were no polyps, masses or ulcerations within the duodenum, but there were some inflamed areas in then first portion of the duodenum consistent with some duodenitis. Biopsy of the duodenum was obtained. Scope was slowly retracted back into the stomach and insufflated. There are some slight erythematous changes in the stomach consistent with some slight gastritis. Biopsy of the antrum was obtained. Scope was retroflexed, noting no other pathology. Scope was returned to its normal position, slowly withdrawn until distal esophagus. No polyps, masses or ulcerations in the esophagus. Biopsy of GE junction was obtained. Scope was slowly retracted back until completely removed, noting no other pathology. The patient tolerated the procedure well without complications, taken to recovery room in stable condition. RECOMMENDATIONS: The patient will follow up on biopsies. She will do this in a couple of weeks. She is already on Protonix. We will add Carafate 1 gram four times a day. We will see how her symptoms are doing and go over biopsy at the next appointment. Job ID: [id number] DocumentID: [id number] Dictated Date: 07/22/2023 08:02:41 Career Development Associate Date: 07/22/2023 13:28:00 Dictated By: KATY MANNING DO
== END 2023-07-22 08:30 | disposition home or self-care (01) ==
LOC: ENDO 07:07
PROVIDERS: ATTEND Surgery
DX: K29.80 Duodenitis without bleeding (principal); K29.70 Gastritis, unspecified, without bleeding; K31.89 Other diseases of stomach and duodenum; G47.33 Obstructive sleep apnea (adult) (pediatric); Z87.891 Personal history of nicotine dependence; Z79.899 Other long term (current) drug therapy
CPT/HCPCS: 88305